=== PATIENT | male | born 1940 | race Caucasian/White ===

== ENCOUNTER → 2016-07-24 | Outpatient (CLI) | payer MEDICARE ==
--- NOTE | 2016-07-24 15:32 | NM ---
EXAMINATION TYPE: NM bone 3 phase DATE OF EXAM: 07/24/2016 3:28 PM COMPARISON: NONE HISTORY: Foot ulcer Triple phase bone scintigraphy was performed following the injection of25.6 mCi Tc 99m MDP. Immediat e images and 7.5 hours post injection images acquired. FINDINGS: There is increased perfusion to the right foot first digit. Increased perfusion along the lateral mar gin of the left foot tarsal region. Soft tissue uptake demonstrates increased soft tissue uptake adjacent to the first digit right foot a nd a lateral margin tarsal bones left foot. Delayed imaging demonstrates focal increased uptake involving the distal margin first digit and in th e region of the base of the fifth metatarsal left foot. IMPRESSION: Findings are compatible cellulitis and osteomyelitis involving the right first digit and in the regio n of the base of the left fifth metatarsal.
== END | disposition home or self-care (01) ==
LOC: RADNMMAIN 07:22
PROVIDERS: ATTEND Thoracic Surgery (Cardiothoracic Vascular Surgery)
DX: M79.604 Pain in right leg (principal); M79.605 Pain in left leg
CPT/HCPCS: 78315; A9503

== ENCOUNTER → 2016-08-06 | Day surgery (SDC) | payer MEDICARE ==
[2016-08-02 09:17] VITALS: BMI 25.7
[~2016-08-06] MED LIST: LIDOCAINE 2% INJ 20 MG/ML (20 ML MDV) ONE; cefTRIAXone 2,000 MG in SODIUM CHLORIDE 0.9% 100 ML IVPB STA
[2016-08-06 11:43] VITALS: BP 108/68; PULSE 69; RESP 18; TEMP 98
--- NOTE | 2016-08-06 15:31 | IR ---
EXAMINATION TYPE: IR cvc insert >=5 years DATE OF EXAM: 08/06/2016 2:23 PM COMPARISON: NONE CLINICAL HISTORY: Infection Needs long-term intravenous access for antibiotics. PROCEDURE: After informed consent, the skin overlying the upper extremity vein was localized with ultrasound and noted to be compressible and patent. An ultrasound image was obtained and submitted on the patient' s chart. The overlying skin was prepped and draped and Lidocaine was used for local anesthesia. A s kin bean was made with a scalpel. Access was gained to the vein under ultrasound guidance with a 21 gauge needle and a 0.018 inch wire was advanced. Access site was dilated with Peel-Away sheath and c atheter tailored to the appropriate length and advanced such that the distal tip is at the cavoatrial junction. Spot image was obtained verifying placement. Catheter was fixed to the skin with suture and a sterile dressing was placed following hemostasis. Catheter was aspirated and flushed with sali ne. Patient was discharged in stable condition without complication. Maximal barrier technique is ut ilized. Ultrasound image is documented on the chart. Ultrasound used with sterile technique. Fluoro time and fluoroscopic images submitted to document procedure: 0.6 minutes fluoroscopy time, in traoperative image documents the procedure IMPRESSION: STATUS POST ULTRASOUND AND FLUOROSCOPIC GUIDED PICC LINE PLACEMENT, READY FOR USE. THIS PROCEDURE WAS PERFORMED BY THE UNDERSIGNED.
== END | disposition home or self-care (01) ==
LOC: CATHCVL 11:16
PROVIDERS: ATTEND Radiology Diagnostic Radiology
DX: M86.8X7 Other osteomyelitis, ankle and foot (principal); L97.529 Non-pressure chronic ulcer of other part of left foot with unspecified severity; L97.519 Non-pressure chronic ulcer of other part of right foot with unspecified severity; M06.9 Rheumatoid arthritis, unspecified; I48.91 Unspecified atrial fibrillation; Z86.14 Personal history of Methicillin resistant Staphylococcus aureus infection; Z79.01 Long term (current) use of anticoagulants; Z79.82 Long term (current) use of aspirin; Z79.52 Long term (current) use of systemic steroids; Z79.899 Other long term (current) drug therapy; Z88.5 Allergy status to narcotic agent; Z87.891 Personal history of nicotine dependence
CPT/HCPCS: 36569 ×2; 76937; 77001; 85610; 11042; C1751; C1769; J0696

== ENCOUNTER 2016-08-28 06:44 | Day surgery (SDC) | payer MEDICARE ==
[2016-08-23 14:15] VITALS: BMI 23.5
--- NOTE | 2016-08-27 21:51 | HP ---
DATE OF ADMISSION: Patient is to be admitted SaturdayAugust 28, for surgical debridement of ulcerations on both feet. HISTORY OF CHIEF COMPLAINT: The patient bilateral foot ulcers. He has severe rheumatoid arthritis and is on numerous metabolite. The left foot is more problematic involving the metatarsal. Past medical history is positive for atrial fibrillation, osteoarthritis and severe rheumatoid arthritis. Social history is positive for previous cigarette smoking. Surgical history is positive for bilateral hips and knees, metatarsal heads and shoulder joint replacement, spinal fusion and colectomy. 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 Please refer to the notes for his medications. REVIEW OF SYSTEMS: CONSTITUTIONAL: Positive for generalized weakness. He is extremely debilitated. ENT is negative. Cardiac is positive for atrial fibrillation and some dyspnea on exertion and some leg edema. PULMONARY: Negative cough, shortness of breath or hemoptysis. GI: Negative. : Negative. MUSCULOSKELETAL: Positive for history of severe rheumatoid arthritis. Dermatologic is positive for his ulcerations. NEUROLOGIC: Is otherwise negative. PSYCHIATRIC: Negative. ENDOCRINE: Negative. Physical examination reveals a pleasant, alert 76-year-old gentleman with severe deformities of especially the hands from his rheumatoid arthritis. HEENT: Examination is negative. Lungs are clear to auscultation. Heart is in an irregularly irregular rhythm. ABDOMEN: Soft and benign. Bilateral left foot has an ulceration about 0.5 x 0.5 cm and the medial right foot has an ulcer as well. IMPRESSION: Bilateral foot ulcers with osteomyelitis. The patient is admitted for bone debridement under IV sedation. I have explained the operation/procedure to the patient, including the risks, benefits, side effects, alternative therapies (including not receiving the proposed treatment or service), the likelihood of the patient achieving his/her goals, and potential recuperation problems for the procedure/sedation/analgesia, as well as any blood products, if indicated. I also explained to the patient the risks, benefits, and side effects of the alternatives, as well as the risks related to not receiving the proposed procedure, care treatment or services.
[~2016-08-28 06:44] MED LIST changes: +DEXAMETHASONE SOD PHOSPHATE 10 MG/ML 1 ML VIAL IV ONE; +LACTATED RINGERS 1,000 ML IV SCH; +LIDOCAINE 1% 20 ML VIAL (10MG/ML) FOR IV START INTRADERMA PRN; -LIDOCAINE 2% INJ 20 MG/ML (20 ML MDV) ONE; +MIDAZOLAM 2 MG/2 ML VIAL IV PRN; +ONDANSETRON 4 MG/2 ML VIAL IVP ONE; +Pre Op ABX Message 1 EACH MISC MISCELLANE ONE; +SCOPOLAMINE 1.5MG/72HR PATCH TRANSDERM ONE; -cefTRIAXone 2,000 MG in SODIUM CHLORIDE 0.9% 100 ML IVPB STA
[2016-08-28] MEDS ORDERED: HYDROCORTISONE SUCCINATE 100 MG/2 ML VIAL IV STA (06:58)
[2016-08-28] MEDS ORDERED: LACTATED RINGERS 1,000 ML IV ONE (07:17)
[2016-08-28 07:23] LABS: INR 1.9 (<1.1); Prothrombin Time 18.4 sec (9.0-12.0)
[2016-08-28 07:28] LABS: Glucose,Whole Blood 73 mg/dL (75-99)
[2016-08-28] MEDS ORDERED: fentaNYL (PF) 50 MCG/ML 2 ML AMP ONE (07:41)
[2016-08-28] MEDS ORDERED: PROPOFOL 10 MG/ML 20 ML VIAL IV ONE (07:41)
[2016-08-28] MEDS ORDERED: MIDAZOLAM 2 MG/2 ML VIAL ONE (07:41)
[2016-08-28 08:23] VITALS: TEMP 97.9
[2016-08-28 08:32] VITALS: RESP 16
[2016-08-28] MEDS: HYDROmorphone 1 MG/ML 1 ML SYRINGE IVP PRN ×4 (08:40→09:00)
[2016-08-28 10:16] VITALS: BP 93/57; PULSE 62
--- NOTE | 2016-08-28 17:36 | P.WCSRGD ---
[facility] Surgical [facility] Date of service: 08/28/2016 Surgeon: Yaritza Pre-and postop diagnosis: Ulceration lateral left foot with osteomyelitis Type of debridement: Excisional surgical Chief complaint: ulcer of lateral left foot Anesthesia: General Signs of infection: Mild redness Extent of necrotic, devitalized or non-viable tissue: Exposed bone with soft mushy components Other material in the wound that is expected to inhibit healing or promote adjacent tissue breakdown: Same Degree of epithelialization: % Method and instrument: Surgical debridement with rongeur Character of the wound after debridement: Clean bloody subcutaneous bed with an' s of bone proximal and distal Description of necrotic material present: Nonviable bone Description of tissue removed: Same Pre-debridement measurement: 0.6 x 0.6 cm and 0.5 cm in depth Postoperative debridement measurement: 0.8 x 0.8 cm and 1.3 cm in depth Control of bleeding:Bleeding was easily controlled with saline moistened gauze and light pressure Post debridement dressing: Opticel silver Patient tolerated procedure well
== END 2016-08-28 10:35 | disposition home or self-care (01) ==
LOC: OR 06:44
PROVIDERS: ATTEND Thoracic Surgery (Cardiothoracic Vascular Surgery)
DX: L97.524 Non-pressure chronic ulcer of other part of left foot with necrosis of bone (principal); M86.9 Osteomyelitis, unspecified; L97.519 Non-pressure chronic ulcer of other part of right foot with unspecified severity; M06.9 Rheumatoid arthritis, unspecified; I48.91 Unspecified atrial fibrillation; M19.90 Unspecified osteoarthritis, unspecified site; Z86.718 Personal history of other venous thrombosis and embolism; Z86.711 Personal history of pulmonary embolism; Z86.14 Personal history of Methicillin resistant Staphylococcus aureus infection; Z79.2 Long term (current) use of antibiotics; Z79.01 Long term (current) use of anticoagulants; Z79.82 Long term (current) use of aspirin; Z79.52 Long term (current) use of systemic steroids; Z79.899 Other long term (current) drug therapy; Z88.5 Allergy status to narcotic agent; Z87.891 Personal history of nicotine dependence
CPT/HCPCS: 85610; 11044; J2250; J1720; J2405; J3010; J1170; J2704

== ENCOUNTER 2016-12-10 08:06 | Day surgery (SDC) | payer MEDICARE ==
--- NOTE | 2016-12-06 10:26 | HP ---
DATE OF ADMISSION: 12/10/2016 Patient is to be admitted on December 10, for debridement of the left foot with bone. HISTORY: This patient has a history of an ulceration on the lateral left foot with exposed infected metatarsal bone. He is undergoing hyperbaric therapy and still has residual bone that requires removal to facilitate healing. Medical history is positive for atrial fibrillation, osteoarthritis, severe rheumatoid arthritis. Social history is positive for previous cigarette smoking. Surgical history is positive for bilateral hips, bilateral knees, metatarsal heads, shoulder joint replacement, spinal fusion and colectomy. Please see the record for his current medications and allergies. REVIEW OF SYSTEMS: CONSTITUTIONAL: Positive for generalized weakness. He is very debilitated and uses wheelchair mainly for mobility. Also positive for some dyspnea on exertion and leg edema. Pulmonary history is negative for cough or shortness of breath at rest, but positive for dyspnea on fairly mild exertion. GI: Negative. : Negative. Musculoskeletal is positive for history of severe rheumatoid arthritis. Dermatologic is positive for his ulceration. Cardiac is negative for chest pain, myocardial infarction or paroxysmal nocturnal dyspnea. Neurologic history is negative. Psychiatric is negative. Endocrine is negative. Physical examination reveals a pleasant, alert, oriented, very frail-looking 76-year-old gentleman in no current distress. He has no cervical mass or adenopathy. His lungs are well aerated. His heart is in an irregular rhythm. His abdomen is soft and benign. He has severe distortion of his hands with swelling of his joints from rheumatoid arthritis. He has about a 5 x 5 mm ulceration in the lateral aspect of the left foot with some bone palpable at about 2 cm in depth. IMPRESSION: Osteomyelitis, left foot. The patient is admitted for surgical debridement with sedation with removal of more bone on the left foot. I have explained the operation/procedure to the patient, including the risks, benefits, side effects, alternative therapies (including not receiving the proposed treatment or service), the likelihood of the patient achieving his/her goals, and potential recuperation problems for the procedure/sedation/analgesia, as well as any blood products, if indicated. I also explained to the patient the risks, benefits, and side effects of the alternatives, as well as the risks related to not receiving the proposed procedure, care treatment or services. This is to occur on December 10.
[2016-12-06 10:45] VITALS: BMI 25.3
[~2016-12-10 08:06] MED LIST changes: -DEXAMETHASONE SOD PHOSPHATE 10 MG/ML 1 ML VIAL IV ONE; -LACTATED RINGERS 1,000 ML IV SCH; -MIDAZOLAM 2 MG/2 ML VIAL IV PRN; -SCOPOLAMINE 1.5MG/72HR PATCH TRANSDERM ONE
[2016-12-10] MEDS: LACTATED RINGERS 1,000 ML IV SCH ×2 (08:55→09:04)
[2016-12-10] MEDS ORDERED: LIDOCAINE 1% 20 ML VIAL (10MG/ML) FOR IV START INTRADERMA ONE (08:55)
[2016-12-10] MEDS ORDERED: HYDROCORTISONE SUCCINATE 100 MG/2 ML VIAL IV STA (08:55)
[2016-12-10 09:03] LABS: Glucose,Whole Blood 68 mg/dL (75-99)
[2016-12-10] MEDS ORDERED: PROPOFOL 10 MG/ML 20 ML VIAL IV ONE (09:07)
[2016-12-10] MEDS ORDERED: LIDOCAINE 1% INJ 10MG/ML (20 ML MDV) ONE (09:07)
[2016-12-10] MEDS ORDERED: fentaNYL (PF) 50 MCG/ML 2 ML AMP ONE (09:07)
[2016-12-10 09:11] LABS: INR 1.7 (<1.1)
[2016-12-10 09:39] VITALS: TEMP 97.8
--- NOTE | 2016-12-10 09:41 | P.PCN ---
Date of Procedure: 12/10/16 Preoperative Diagnosis: Ulcer with Osteomyelitis left foot, Postoperative Diagnosis: Same Procedure(s) Performed: Surgical debridement left foot including bone Implants: Anesthesia: MAC Surgeon: Hadley Vigil Estimated Blood Loss (ml): 30 Pathology: other (Bone from left foot for culture) Condition: stable Disposition: PACU Indications for Procedure: Patient has nonviable bone in the left foot and was unable tolerate thorough debridement without anesthetic Operative Findings: We did find a fairly large amount of soft mushy bone in the area. The ulcer started at 0.5 x 0.5 by about 2.5 cm. We increased the external opening to about 0.8 x 0.8. The depth was still about 2.5 cm. The inner cavity however was significantly enlarged by removing a lot of necrotic bone. Description of Procedure: With the patient in supine position, under benefit of IV sedation, we prepped and draped in standard fashion. We utilized a rongeur and curettes to remove as much as possible of nonviable bone in the entire area. We took it to what appeared to be more firm healthy bone. Hemostasis Was with direct pressure. The wound was packed. Sterile dressings were applied. The patient was taken to recovery area in stable condition having tolerated the procedure well.
[2016-12-10] MEDS: HYDROmorphone 1 MG/ML 1 ML SYRINGE IVP ONE ×2 (09:50→09:56)
[2016-12-10] MEDS: fentaNYL (PF) 50 MCG/ML 2 ML AMP IV PRN ×2 (10:10→10:13)
[2016-12-10 10:32] VITALS: RESP 16
[2016-12-10 11:00] VITALS: BP 115/52; PULSE 64
== END 2016-12-10 11:21 | disposition home or self-care (01) ==
LOC: OR 08:06
PROVIDERS: ATTEND Thoracic Surgery (Cardiothoracic Vascular Surgery)
DX: M86.8X7 Other osteomyelitis, ankle and foot (principal)
CPT/HCPCS: 85610; 87070; 87205; 87077; 87186; 11044; J1720; J2405; J2001; J3010; J1170; J2704

== ENCOUNTER 2017-01-14 08:01 | Day surgery (SDC) | payer MEDICARE ==
[~2017-01-14 08:01] MED LIST changes: +DEXAMETHASONE SOD PHOSPHATE 10 MG/ML 1 ML VIAL IV ONE; +LACTATED RINGERS 1,000 ML IV SCH; +MIDAZOLAM 2 MG/2 ML VIAL IV PRN; -Pre Op ABX Message 1 EACH MISC MISCELLANE ONE; +ceFAZolin 2 GM in SODIUM CHLORIDE 0.9% 100 ML IVPB ONE
[2017-01-14 08:45] LABS: Glucose,Whole Blood 73 mg/dL (75-99)
[2017-01-14 09:00] LABS: INR 1.1 (<1.1); Prothrombin Time 11.4 sec (9.0-12.0)
[2017-01-14] MEDS ORDERED: PROPOFOL 10 MG/ML 20 ML VIAL IV ONE (09:04)
[2017-01-14] MEDS ORDERED: fentaNYL (PF) 50 MCG/ML 2 ML AMP ONE (09:04)
[2017-01-14] MEDS ORDERED: MIDAZOLAM 2 MG/2 ML VIAL ONE (09:04)
[2017-01-14] MEDS ORDERED: ePHEDrine 50 MG/ML 1 ML AMP ONE (09:04)
--- NOTE | 2017-01-14 09:10 | P.GSHP ---
History of Present Illness H&P Date: 01/14/17 Chief Complaint: Ulceration left foot Patient has a chronic ulcer on the lateral left foot secondary to chronic osteomyelitis of the left foot. It has been refractory to outpatient therapy including hyperbarics. - Constitutional Constitutional: Reports chronic pain, Reports weakness, Denies chills, Denies fever - EENT Eyes: denies blurred vision, denies pain Ears, nose, mouth and throat: Denies headache, Denies sore throat - Cardiovascular Cardiovascular: Reports decreased exercise tolerance, Denies chest pain, Denies orthopnea, Denies paroxysmal nocturnal dyspnea, Denies shortness of breath - Respiratory Respiratory: Denies congestion, Denies cough, Denies hemoptysis - Gastrointestinal Gastrointestinal: Denies abdominal pain, Denies coffee ground emesis, Denies diarrhea, Denies hematemesis, Denies hematochezia, Denies jaundice, Denies melena, Denies nausea, Denies vomiting - Genitourinary (Female) Genitourinary: Denies dysuria, Denies hematuria - Genitourinary (Male) Genitourinary: Denies dysuria, Denies hematuria - Musculoskeletal Comment: Severe long-standing rheumatoid arthritis Musculoskeletal: Denies myalgias - Integumentary Comment: Chronic ulcer lateral left foot Integumentary: Denies pruritus, Denies rash - Neurological Neurological: Denies convulsions, Denies numbness, Denies paralysis, Denies syncope, Denies weakness - Psychiatric Psychiatric: Denies anxiety, Denies depression - Endocrine Endocrine: Denies fatigue, Denies weight change - Hematologic/Lymphatic Comment: The patient is on anticoagulants - Allergic/Immunologic Allergic/Immunologic: Denies anaphylaxis, Denies angioedema, Denies urticaria Past Medical History Past Medical History: Atrial Fibrillation, Deep Vein Thrombosis (DVT), Osteoarthritis (OA), Rheumatoid Arthritis (RA), Skin Disorder Additional Past Medical History / Comment(s): asbestosis, wound outside left foot, hx colitis, wheelchair-non ambulatory from severe RA, "low BP", hx DVT rt leg History of Any Multi-Drug Resistant Organisms: MRSA Date of last positivie culture/infection: lt knee MDRO Source:: lt. leg Past Surgical History: Appendectomy, Back Surgery, Heart Catheterization, Joint Replacement, Tonsillectomy Additional Past Surgical History / Comment(s): hips & knees,metatarsal heads removed,fingers,shoulder joint replaced,spinal fusion C1&2,colectomy 08/28/16 debridement left lateral foot Past Anesthesia/Blood Transfusion Reactions: Postoperative Nausea & Vomiting ( PONV) Additional Past Alcohol Use History / Comment(s): Quit smoking in 1972, started smoking age 19 - Past Family History Mother Family Medical History: Cancer Additional Family Medical History / Comment(s): Breast Medications and Allergies Home Medications Medication Instructions Recorded Confirmed Type Acetaminophen-Codeine 300-30mg 1 tab PO Q8H PRN 07/18/16 01/14/17 History [Tylenol w/codeine #3] Aspirin 81 mg PO DAILY 07/18/16 01/14/17 History Furosemide [Lasix] 20 mg PO QAM 07/18/16 01/14/17 History Gabapentin [Neurontin] 300 mg PO TID 07/18/16 01/14/17 History Hydroxychloroquine Sulfate 200 mg PO DAILY 07/18/16 01/14/17 History [Plaquenil] Ipratropium/Albuterol Sulfate 1 puff INHALATION QID PRN 07/18/16 01/14/17 History [Combivent Respimat Inhaler] L.acidoph,Paracasei, B.lactis 1 each PO DAILY 07/18/16 01/14/17 History [Probiotic] Metoprolol Succinate (ER) [Toprol 50 mg PO BID 07/18/16 01/14/17 History XL] Tamsulosin [Flomax] 0.4 mg PO DAILY 07/18/16 01/14/17 History Warfarin [Coumadin] 1 mg PO SUTUTHSA 07/18/16 01/14/17 History fentaNYL 50MCG/HR PATCH [Duragesic 50 mcg TRANSDERM Q72H 07/18/16 01/14/17 History 50MCG/HR] predniSONE 10 mg PO QAM 07/18/16 01/14/17 History Warfarin [Coumadin] 1.5 mg PO MOWEFR 08/02/16 01/14/17 History ALPRAZolam [Xanax] 0.25 mg PO TID PRN 01/10/17 01/14/17 History Digoxin [Lanoxin] 125 mcg PO QAM 01/10/17 01/14/17 History Allergies Allergy/AdvReac Type Severity Reaction Status Date / Time meperidine Allergy Nausea & Verified 01/14/17 08:46 Vomiting morphine AdvReac Confusion Verified 01/14/17 08:46 Surgical - Exam Osteopathic Statement: *. No significant issues noted on an osteopathic structural exam other than those noted in the History and Physical/Consult. Vital Signs Temp Pulse Resp BP Pulse Ox 97.7 F 55 L 16 107/52 95 01/14/17 08:40 01/14/17 08:40 01/14/17 08:40 01/14/17 08:40 01/14/17 08:40 - General well developed, well nourished, no distress - Eyes normal ocular movement, no icteric - ENT no hearing loss, no congestion - Neck no masses, no bruits, trachea midline - Respiratory normal respiratory effort, clear to auscultation - Cardiovascular Rhythm: regular - Abdomen Abdomen: soft, non tender, no guarding, no rigid, no rebound - Integumentary no rash, no abnormal pigmentation - Neurologic no disoriented, no combative - Musculoskeletal Patient is essentially bedbound and wheelchair-bound secondary to severe deforming rheumatoid arthritis. - Psychiatric oriented to time, oriented to person, oriented to place, speech is normal, memory intact Results - Labs Abnormal Lab Results - Last 24 Hours (Table) 01/14/17 Range/Units 08:33 POC Glucose (mg/dL) 73 L (75-99) mg/dL Assessment and Plan (1) Osteomyelitis of ankle or foot Status: Acute Plan: Patient has failed conservative measures with limited debridement. Patient is admitted today for more radical debridement of the bones of the foot with attempt at primary closure. Have discussed the potential palpitations of the procedure with the patient including the potential for limb loss. He appears to understand these things and agrees to proceed.
[2017-01-14] MEDS ORDERED: LACTATED RINGERS 500 ML IV ONE (10:00)
[2017-01-14] MEDS ORDERED: SODIUM CHLORIDE 0.9% 500 ML IV ONE (10:02)
[2017-01-14 10:18] VITALS: TEMP 97
[2017-01-14] MEDS: HYDROmorphone 1 MG/ML 1 ML SYRINGE IVP PRN ×2 (10:25→10:33)
[2017-01-14 10:35] VITALS: RESP 16
--- NOTE | 2017-01-14 10:42 | P.PCN ---
Date of Procedure: 01/14/17 Preoperative Diagnosis: Chronic osteomyelitis with ulceration lateral left foot Postoperative Diagnosis: Same Procedure(s) Performed: debridement of the lateral right foot including bones of the metatarsal and distal tarsal bones with primary closure Implants: Anesthesia: MAC Surgeon: Hadley Vigil Estimated Blood Loss (ml): 30 Pathology: other (Deep bone tissue cultures sent) Condition: stable Disposition: PACU Indications for Procedure: The patient had a chronic open ulcer secondary to osteomyelitis which was chronic Operative Findings: On exploration there was somewhat abnormal bone throughout the area of our debridement. This was fibrous and difficult to tell whether it was related to infection or his severe chronic rheumatoid arthritis Description of Procedure: With the patient in supine position, under benefit of IV sedation, we prepped and draped in standard fashion. We made an elliptical incision which included the chronic ulcer on the lateral left foot it extended the incision both distal and proximally. Through this incision then we both excise the entire fistulous tract and then using a rongeur removed all that we could of the fifth metatarsal and some of the proximal tarsal bones. We removed enough that we were then able to primarily close the wound. We did remove all that we could of anything that felt abnormal. We then irrigated with saline. We then closed with vertical mattress 3-0 nylon. Sterile dressings were applied. The patient tolerated the procedure well and was taken to recovery area in stable condition.
[2017-01-14] MEDS ORDERED: Acetaminophen-Codeine 300-30mg TAB PO ONE (12:04)
[2017-01-14 12:39] VITALS: BP 104/51; PULSE 68
== END 2017-01-14 12:58 | disposition home or self-care (01) ==
LOC: OR 08:01
PROVIDERS: ATTEND Thoracic Surgery (Cardiothoracic Vascular Surgery)
DX: L97.529 Non-pressure chronic ulcer of other part of left foot with unspecified severity (principal); M86.672 Other chronic osteomyelitis, left ankle and foot; I48.91 Unspecified atrial fibrillation; Z86.718 Personal history of other venous thrombosis and embolism; Z79.01 Long term (current) use of anticoagulants; Z77.090 Contact with and (suspected) exposure to asbestos; M19.90 Unspecified osteoarthritis, unspecified site; I95.89 Other hypotension; M06.9 Rheumatoid arthritis, unspecified; Z87.891 Personal history of nicotine dependence; Z79.82 Long term (current) use of aspirin; Z79.891 Long term (current) use of opiate analgesic; Z79.52 Long term (current) use of systemic steroids; Z79.899 Other long term (current) drug therapy; Z88.5 Allergy status to narcotic agent
CPT/HCPCS: 85610; 87070; 87205; 87075; 28122; J2250; J1100; J0690; J2405; J3010; J1170; J2704

== ENCOUNTER 2017-03-29 09:25 | Day surgery (SDC) | payer MEDICARE ==
[2017-03-27 14:04] VITALS: BMI 23.3
[~2017-03-29 09:25] MED LIST changes: -DEXAMETHASONE SOD PHOSPHATE 10 MG/ML 1 ML VIAL IV ONE; -LIDOCAINE 1% 20 ML VIAL (10MG/ML) FOR IV START INTRADERMA PRN; -MIDAZOLAM 2 MG/2 ML VIAL IV PRN; -ONDANSETRON 4 MG/2 ML VIAL IVP ONE; -ceFAZolin 2 GM in SODIUM CHLORIDE 0.9% 100 ML IVPB ONE
[2017-03-29 10:31] VITALS: RESP 16; TEMP 96.7
[2017-03-29] MEDS ORDERED: LIDOCAINE 1% 20 ML VIAL (10MG/ML) FOR IV START INTRADERMA ONE (10:41)
[2017-03-29] MEDS ORDERED: PROPOFOL 10 MG/ML 20 ML VIAL IV ONE (10:54)
--- NOTE | 2017-03-29 11:08 | P.PCN ---
Date of Procedure: 03/29/17 Preoperative Diagnosis: Postoperative Diagnosis: Procedure(s) Performed: BRIEF HISTORY: Patient is a 77-year-old, pleasant, white male, scheduled for an upper endoscopy as a part of evaluation of intermittent dysphagia to solids for the last 1 month duration. He has intermittent symptoms that happened months for 5 times a week. No choking episodes. He denies any odynophagia. Denies any heartburn. He lost 50-60 pounds in the last 1 year duration. PROCEDURE PERFORMED: Esophagogastroduodenoscopy with biopsy. PREOPERATIVE DIAGNOSIS: Intermittent dysphagia to solids for the last 1 month duration. IV sedation per anesthesia. PROCEDURE: After informed consent was obtained, the patient was brought into the endoscopy unit. IV sedation was administered by Anesthesia under continuous monitoring. Initially the Olympus GIF-140 video endoscope was inserted into the mouth. Esophagus intubated without any difficulty. It was gradually advanced into the stomach and duodenum and carefully examined. The bulb and the second part of the duodenum appeared normal. The scope at this time was withdrawn to the stomach, adequately insufflated with air, and upon careful examination, mucosa of the antrum, had mild gastritis and biopsies were done from this area. The body, cardia and the fundus appeared normal. The scope was then withdrawn into the esophagus. Small hiatal hernia noted. The GE junction was located at 39 cm from the incisors. The esophagus appeared normal. No evidence of esophageal stricture in the proximal cervical esophagus appeared normal. There were no erosions or ulcerations seen and the patient tolerated the procedure well. IMPRESSION: 1. Normal-appearing esophagus with no evidence of esophagitis or esophageal stricture. 2. Mild gastritis and small hiatal hernia. RECOMMENDATIONS: The findings of this examination were discussed with the patient as well as his family. He was advised to follow with the biopsy results. He will continue with Prilosec 20 minute grams daily and follow antireflux measures. Implants: Indications for Procedure: Operative Findings: Description of Procedure:
[2017-03-29 11:55] VITALS: BP 111/66; PULSE 78
== END 2017-03-29 12:07 | disposition home or self-care (01) ==
LOC: ORWHC2ENDO 09:25
PROVIDERS: ATTEND Internal Medicine Gastroenterology
DX: K44.9 Diaphragmatic hernia without obstruction or gangrene (principal); K29.50 Unspecified chronic gastritis without bleeding; R13.10 Dysphagia, unspecified; I49.9 Cardiac arrhythmia, unspecified; I48.91 Unspecified atrial fibrillation; Z79.01 Long term (current) use of anticoagulants; Z86.718 Personal history of other venous thrombosis and embolism; J44.9 Chronic obstructive pulmonary disease, unspecified; Z87.891 Personal history of nicotine dependence; N40.0 Benign prostatic hyperplasia without lower urinary tract symptoms; M06.9 Rheumatoid arthritis, unspecified; Z79.82 Long term (current) use of aspirin; Z79.52 Long term (current) use of systemic steroids; Z79.899 Other long term (current) drug therapy; Z88.5 Allergy status to narcotic agent
CPT/HCPCS: 88305; 88342; 43239; J2704; 88312

== ENCOUNTER → 2017-04-23 | Outpatient (CLI) | payer MEDICARE ==
--- NOTE | 2017-04-23 15:43 | XR ---
EXAMINATION TYPE: XR chest 2V DATE OF EXAM: 04/23/2017 COMPARISON: Prior chest x-ray 08/16/2011 HISTORY: Fever, abnormal chest x-ray TECHNIQUE: Frontal and lateral views of the chest are obtained. FINDINGS: Calcified pleura again noted on the left, there is some volume loss. Postop change noted t o the right shoulder. No evident pneumothorax or pleural effusion. Heart size is likely stable accoun ting for differences in technique and rotation. Multiple right-sided rib fractures are again seen. Ma rked arthropathy again noted within the left shoulder. IMPRESSION: Rotated exam. Findings are similar to previous exam. Follow-up as indicated.
== END | disposition home or self-care (01) ==
LOC: RADXRMAIN 14:34
PROVIDERS: ATTEND Internal Medicine Geriatric Medicine
DX: R50.9 Fever, unspecified (principal)
CPT/HCPCS: 71020

== ENCOUNTER 2017-05-08 10:48 | Day surgery (SDC) | payer MEDICARE ==
[2017-05-02 16:25] VITALS: BMI 23.5
--- NOTE | 2017-05-08 10:39 | P.GSHP ---
History of Present Illness H&P Date: 05/08/17 Chief Complaint: Osteomyelitis left great toe The patient has severe rheumatoid arthritis. He has severe inability to heal. He traumatized the medial aspect of the area of the first MP joint on his left foot. This is developed into a severe ulceration with essentially the entire joint surfaces exposed and the distal first metatarsal - Constitutional Constitutional: Reports chronic pain, Reports fatigue, Reports weakness, Denies chills, Denies fever - EENT Eyes: denies blurred vision, denies pain Ears, nose, mouth and throat: Denies headache, Denies sore throat - Cardiovascular Cardiovascular: Denies chest pain, Denies dyspnea on exertion, Denies orthopnea , Denies paroxysmal nocturnal dyspnea, Denies shortness of breath - Respiratory Respiratory: Denies cough, Denies cough with sputum, Denies hemoptysis - Gastrointestinal Gastrointestinal: Denies abdominal pain, Denies coffee ground emesis, Denies diarrhea, Denies hematemesis, Denies jaundice, Denies melena, Denies nausea, Denies vomiting - Genitourinary (Female) Genitourinary: Denies dysuria, Denies hematuria - Genitourinary (Male) Genitourinary: Denies dysuria, Denies hematuria - Musculoskeletal Comment: Severe joint deformities and chronic pain from severe rheumatoid arthritis. Chronic osteomyelitis lateral aspect of the left foot involving fifth metatarsal. Patient is essentially wheelchair-bound secondary to the debilitating effects of rheumatoid arthritis. Musculoskeletal: Denies myalgias - Integumentary Comment: Ulcers left foot as described Integumentary: Denies pruritus, Denies rash - Neurological Neurological: Denies numbness, Denies weakness - Psychiatric Psychiatric: Denies anxiety, Denies depression - Endocrine Endocrine: Denies fatigue, Denies weight change - Hematologic/Lymphatic Hematologic/Lymphatic: Denies easy bleeding, Denies easy bruising, Denies lymphedema - Allergic/Immunologic Allergic/Immunologic: Denies anaphylaxis, Denies angioedema, Denies urticaria Past Medical History Past Medical History: Atrial Fibrillation, Deep Vein Thrombosis (DVT), Osteoarthritis (OA), Rheumatoid Arthritis (RA), Skin Disorder Additional Past Medical History / Comment(s): asbestosis, wound outside left foot, hx colitis, wheelchair-non ambulatory from severe RA, "low BP", hx DVT rt leg History of Any Multi-Drug Resistant Organisms: MRSA Date of last positivie culture/infection: lt knee MDRO Source:: lt. leg Past Surgical History: Appendectomy, Back Surgery, Heart Catheterization, Joint Replacement, Tonsillectomy Additional Past Surgical History / Comment(s): hips & knees,metatarsal heads removed,fingers,shoulder joint replaced,spinal fusion C1&2,colectomy 08/28/16 debridement left lateral foot Past Anesthesia/Blood Transfusion Reactions: Postoperative Nausea & Vomiting ( PONV) Past Psychological History: No Psychological Hx Reported Smoking Status: Former smoker Past Alcohol Use History: None Reported Additional Past Alcohol Use History / Comment(s): Quit smoking in 1972, started smoking age 19 Past Drug Use History: None Reported - Past Family History Mother Family Medical History: Cancer Additional Family Medical History / Comment(s): Breast Medications and Allergies Home Medications Medication Instructions Recorded Confirmed Type Acetaminophen-Codeine 300-30mg 1 tab PO Q6H PRN 07/18/16 05/02/17 History [Tylenol w/codeine #3] Aspirin 81 mg PO DAILY 07/18/16 05/02/17 History Furosemide [Lasix] 20 mg PO QAM 07/18/16 05/02/17 History Gabapentin [Neurontin] 300 mg PO TID 07/18/16 05/02/17 History Hydroxychloroquine Sulfate 200 mg PO DAILY 07/18/16 05/02/17 History [Plaquenil] Ipratropium/Albuterol Sulfate 1 puff INHALATION QID PRN 07/18/16 05/02/17 History [Combivent Respimat Inhaler] L.acidoph,Paracasei, B.lactis 1 each PO DAILY 07/18/16 05/02/17 History [Probiotic] Tamsulosin [Flomax] 0.4 mg PO DAILY 07/18/16 05/02/17 History fentaNYL 50MCG/HR PATCH [Duragesic 50 mcg TRANSDERM Q72H 07/18/16 05/02/17 History 50MCG/HR] predniSONE 10 mg PO QAM 07/18/16 05/02/17 History Warfarin [Coumadin] 1 mg PO DAILY 08/02/16 05/02/17 History Digoxin [Lanoxin] 125 mcg PO QAM 01/10/17 05/02/17 History Omeprazole 20 mg PO DAILY 02/20/17 05/02/17 History Ciprofloxacin HCl [Cipro] 500 mg PO Q12HR #28 tablet 04/23/17 05/02/17 Rx Allergies Allergy/AdvReac Type Severity Reaction Status Date / Time meperidine Allergy Nausea & Verified 05/02/17 11:41 Vomiting morphine AdvReac Confusion Verified 05/02/17 11:41 Surgical - Exam Osteopathic Statement: *. No significant issues noted on an osteopathic structural exam other than those noted in the History and Physical/Consult. - General Patient has generalized deformities from his rheumatoid arthritis, especially hands and feet well developed, well nourished, no distress, chronically ill - Eyes normal ocular movement, no icteric - ENT no hearing loss, no congestion - Neck no masses, no bruits, trachea midline - Respiratory normal expansion, normal respiratory effort, clear to auscultation - Cardiovascular Rhythm: regular - Abdomen Abdomen: soft, non tender, no guarding, no rigid, no rebound - Integumentary Deep but narrow ulcer lateral left foot and almost detached left great toe secondary to trauma to the first metatarsophalangeal joint no rash, no abnormal pigmentation - Neurologic no disoriented, no combative - Musculoskeletal Patient is essentially wheelchair-bound - Psychiatric oriented to time, oriented to person, oriented to place, speech is normal, memory intact Assessment and Plan (1) Subacute osteomyelitis of left foot Status: Acute Code(s): M86.272 - SUBACUTE OSTEOMYELITIS, LEFT ANKLE AND FOOT SNOMED Code(s): 69544878 Plan: I discussed with the patient the options. There is no way to heal this and I recommended we try amputation and primary closure. He appears to understand that he risks left below or above-knee amputation..
[~2017-05-08 10:48] MED LIST changes: +DEXAMETHASONE SOD PHOSPHATE 10 MG/ML 1 ML VIAL IV ONE; +HYDROmorphone 0.5 MG/0.5 ML SYRINGE IVP PRN; +LIDOCAINE 1% 20 ML VIAL (10MG/ML) FOR IV START INTRADERMA PRN; +MIDAZOLAM 2 MG/2 ML VIAL IV PRN; +ONDANSETRON 4 MG/2 ML VIAL IVP ONE; +SCOPOLAMINE 1.5MG/72HR PATCH TRANSDERM ONE; +ceFAZolin 2 GM in SODIUM CHLORIDE 0.9% 100 ML IVPB ONE
[2017-05-08 11:55] LABS: Glucose,Whole Blood 74 mg/dL (75-99)
[2017-05-08 12:26] LABS: INR 1.2 (<1.2); Prothrombin Time 11.5 sec (9.0-12.0)
[2017-05-08] MEDS ORDERED: PHENYLEPHRINE-0.9% NACL SYG 1 MG/10 ML SYRINGE ONE (13:19)
[2017-05-08] MEDS ORDERED: PROPOFOL 10 MG/ML 20 ML VIAL IV ONE (13:19)
[2017-05-08] MEDS ORDERED: fentaNYL (PF) 50 MCG/ML 2 ML AMP ONE (13:19)
[2017-05-08] MEDS ORDERED: MIDAZOLAM 2 MG/2 ML VIAL ONE (13:19)
[2017-05-08 14:26] VITALS: TEMP 97.7
[2017-05-08] MEDS ORDERED: HYDROmorphone 1 MG/ML 1 ML SYRINGE IVP ONE (14:40)
[2017-05-08] MEDS ORDERED: Acetaminophen-Codeine 300-30mg TAB PO ONE (15:08)
[2017-05-08 15:28] VITALS: BP 90/50; PULSE 90; RESP 18
--- NOTE | 2017-05-08 16:41 | P.PCN ---
Date of Procedure: 05/08/17 Preoperative Diagnosis: Osteomyelitis left first metatarsophalangeal joint Postoperative Diagnosis: Same Procedure(s) Performed: Left great toe amputation through the metatarsal Anesthesia: JAMA Dry Box Operator #1: Hadley Vigil Estimated Blood Loss (ml): 40 Pathology: other (Bone specimen for culture) Condition: stable Disposition: PACU Indications for Procedure: The patient injured the left great toe and has a wide open joint with nonhealing Operative Findings: The proximal portion of the metatarsal where divided appeared healthy. The tissues on closure appeared healthy as well. Description of Procedure: With the patient spine position, under benefit of general anesthesia, we prepped and draped in standard fashion. We totally excised the area of open ulceration. We initially left a generous portion of the medial great toe flap for consideration of flap closure. We removed the great toe and with a Tima removed all of the distal metatarsal to about a centimeter above the line of the soft tissue remaining. We sharply removed the sesamoid bones as well. We established hemostasis with electrocautery. We then assessed for closure. It appeared that the most comfortable closure would be simple longitudinal closure. We fashioned the wound edges accordingly removing the rest of the great toe flap. We irrigated with saline and closed with nylon. Sterile dressings were applied. The patient tolerated the procedure well and was taken recovery area in stable condition. The patient is well aware that due to his severe healing problems that this may not heal regardless of the quality of tissues as they appear the time.
== END 2017-05-08 16:31 | disposition home or self-care (01) ==
LOC: OR 10:48
PROVIDERS: ATTEND Thoracic Surgery (Cardiothoracic Vascular Surgery)
DX: I96 Gangrene, not elsewhere classified (principal); L97.529 Non-pressure chronic ulcer of other part of left foot with unspecified severity; M06.9 Rheumatoid arthritis, unspecified; I48.91 Unspecified atrial fibrillation; Z86.718 Personal history of other venous thrombosis and embolism; M19.90 Unspecified osteoarthritis, unspecified site; Z99.3 Dependence on wheelchair; Z86.14 Personal history of Methicillin resistant Staphylococcus aureus infection; Z87.891 Personal history of nicotine dependence; Z79.01 Long term (current) use of anticoagulants; Z79.82 Long term (current) use of aspirin; Z79.899 Other long term (current) drug therapy; Z88.8 Allergy status to other drugs, medicaments and biological substances; Z88.5 Allergy status to narcotic agent
CPT/HCPCS: 88305; 85610; 88311; 87070; 87205; 87075; 28820; J2250; J1100; J2405; J3010; J1170 ×2; J2370; J2704

== ENCOUNTER 2017-10-11 12:52 | Inpatient (IN) | payer MEDICARE ==
[2017-10-11] MEDS ORDERED: SODIUM CHLORIDE 0.9% 1,000 ML IV STA ×2 (13:19)
[2017-10-11] MEDS ORDERED: ONDANSETRON 4 MG/2 ML VIAL IVP STA (13:19)
[2017-10-11 14:03] LABS: Basophils % (A) 0 %; Eosinophils # (A) 0.2 k/uL (0-0.7); Eosinophils % (A) 1 %; HCT 33.6 % (39.0-53.0); HGB 10.5 gm/dL (13.0-17.5); Lymphocytes # (A) 0.7 k/uL (1.0-4.8); Lymphocytes % (A) 4 %; MCH 28.4 pg (25.0-35.0); MCHC 31.2 g/dL (31.0-37.0); Mean Platelet Volume 7.5; Monocytes # (A) 0.8 k/uL (0-1.0); Monocytes % (A) 4 %; Neutrophils % (A) 90 %; Platelet Count 271 k/uL (150-450); RDW 15.8 % (11.5-15.5); WBC 18.9 k/uL (3.8-10.6)
[2017-10-11 14:08] LABS: ALT 19 U/L (21-72); AST 19 U/L (17-59); Albumin 3.1 g/dL (3.5-5.0); Alkaline Phosphatase 82 U/L (38-126); Anion Gap 13 mmol/L; Blood Urea Nitrogen 34 mg/dL (9-20); Calcium 9.4 mg/dL (8.4-10.2); Carbon Dioxide 30 mmol/L (22-30); Chloride 100 mmol/L (98-107); Glucose 94 mg/dL (74-99); Potassium 4.2 mmol/L (3.5-5.1); Sodium 143 mmol/L (137-145); Total Protein 6.1 g/dL (6.3-8.2)
[2017-10-11 14:27] LABS: Creatine Kinase MB 1.6 ng/mL (0.0-2.4); INR 2.6 (<1.2); Partial Thromboplastin Time 37.7 sec (22.0-30.0); Prothrombin Time 23.8 sec (9.0-12.0)
[2017-10-11 14:28] LABS: Troponin I 0.12 ng/mL (0.000-0.034)
[2017-10-11] MEDS ORDERED: ACETAMINOPHEN TAB 500 MG TAB PO STA (14:42)
--- NOTE | 2017-10-11 14:42 | ED ---
General Adult HPI - General Chief complaint: Weakness Stated complaint: Weakness Time Seen by Provider: 10/11/17 13:09 Source: patient Mode of arrival: EMS Limitations: altered mental status - History of Present Illness Initial comments: 77 years old female been feeling weak since 8 PM yesterday,, he is very active by the caregiver this morning he was unable to get out of his bed or is a change from back to his wheelchair as a chronic infection of face left foot he had great toe amputation done in March 2017 according to the caregiver it has been infected since then has been seeing Dr. Snow has a headache no neck neck stiffness no chest pain or shortness of breath no abdominal pain does complain about the generalized pains in his shoulders and his major joints she does have a history of rheumatoid arthritis no symptoms of TIA or CVA - Related Data Home Medications Medication Instructions Recorded Confirmed Acetaminophen-Codeine 300-30mg 1 tab PO Q6H PRN 07/18/16 10/11/17 [Tylenol w/codeine #3] Aspirin 81 mg PO DAILY 07/18/16 10/11/17 Gabapentin [Neurontin] 300 mg PO TID 07/18/16 10/11/17 Hydroxychloroquine Sulfate 200 mg PO DAILY 07/18/16 10/11/17 [Plaquenil] L.acidoph,Paracasei, B.lactis 1 cap PO DAILY 07/18/16 10/11/17 [Probiotic] Tamsulosin [Flomax] 0.4 mg PO DAILY 07/18/16 10/11/17 fentaNYL 50MCG/HR PATCH [Duragesic 50 mcg TRANSDERM Q72H 07/18/16 10/11/17 50MCG/HR] predniSONE 10 mg PO QAM 07/18/16 10/11/17 Digoxin [Lanoxin] 125 mcg PO QAM 01/10/17 10/11/17 Ferrous Sulfate [Feosol] 325 mg PO DAILY 08/21/17 10/11/17 Cholecalciferol (Vitamin D3) 2,000 unit PO DAILY 10/11/17 10/11/17 [Vitamin D3] Cyclobenzaprine [Flexeril] 5 mg PO HS 10/11/17 10/11/17 Warfarin [Coumadin] 1.5 mg PO HS 10/11/17 10/11/17 Allergies Allergy/AdvReac Type Severity Reaction Status Date / Time meperidine Allergy Nausea & Verified 10/11/17 13:46 Vomiting morphine AdvReac Confusion Verified 10/11/17 13:46 Review of Systems ROS Statement: Those systems with pertinent positive or pertinent negative responses have been documented in the HPI. ROS Other: All systems not noted in ROS Statement are negative. Past Medical History Past Medical History: Atrial Fibrillation, Deep Vein Thrombosis (DVT), Osteoarthritis (OA), Rheumatoid Arthritis (RA), Skin Disorder Additional Past Medical History / Comment(s): asbestosis, wound outside left foot, hx colitis, wheelchair-non ambulatory from severe RA, "low BP", hx DVT rt leg History of Any Multi-Drug Resistant Organisms: MRSA Date of last positivie culture/infection: lt knee MDRO Source:: lt. leg Past Surgical History: Appendectomy, Back Surgery, Heart Catheterization, Joint Replacement, Tonsillectomy Additional Past Surgical History / Comment(s): hips & knees,metatarsal heads removed,fingers,shoulder joint replaced,spinal fusion C1&2,colectomy 08/28/16 debridement left lateral foot Past Anesthesia/Blood Transfusion Reactions: Postoperative Nausea & Vomiting ( PONV) Past Psychological History: No Psychological Hx Reported Smoking Status: Former smoker Past Alcohol Use History: None Reported Past Drug Use History: None Reported - Past Family History Mother Family Medical History: Cancer Additional Family Medical History / Comment(s): Breast General Exam - General Exam Comments Initial Comments: General: The patient is awake and alert, in no distress, and does not appear acutely ill. GCS is 15 Skin: Skin is warm and dry and no rashes or lesions are noted. He has chronic discoloration of his both upper extremities Eye: Pupils are equal, round and reactive to light, extra-ocular movements are intact; there is normal conjunctiva bilaterally. Ears, nose, mouth and throat: There are moist mucous membranes and no oral lesions. Neck: The neck is supple, there is no tenderness Cardiovascular: There is a regular rate and rhythm. No murmur, rub or gallop is appreciated. Respiratory: To auscultation bilateral, crease breath sounds bilateral noticed some crackles at the right lower base Gastrointestinal: Soft, non-distended, non-tender abdomen without masses or organomegaly noted. There is no rebound or guarding present. Bowel sounds are unremarkable. Back: There is no tenderness to palpation in the midline. There is no obvious deformity. Musculoskeletal: There is chronic deformity rheumatoid arthritis of the both wrists joints, patient sent is rheumatoid arthritis also noticed chronic venous stasis changes in the lower extremities as well noticed a born on the left foot which is 2 x 2 centimeter is about 5 mm deep noticed some secretions in this wound legs are warm without Neurological: CN II-XII intact, Cranial nerves III through XII are intact. There are no obvious motor or sensory deficits. Coordination appears grossly intact. Speech is normal. Psychiatric: Cooperative, appropriate mood & affect, normal judgment. Limitations: altered mental status Course Vital Signs 10/11/17 10/11/17 13:11 14:29 Temperature 98.9 F Pulse Rate 101 H 95 Respiratory 16 20 Rate Blood Pressure 106/57 140/72 O2 Sat by Pulse 96 94 L Oximetry Patient is reassessed at 1450, noticed white count is elevated with a left shift his INR is 2.5 is cyanotic candidate for any heparinization though his troponin is elevated EKG was unremarkable head CT is pending at this point he does not get headache often is complaining about headache today though there was no trauma but he hasn't he is on a Coumadin and INR is therapeutic to rule out any subdural I will go ahead and do a head CT he be admitted to Dr. Payton' s service with a cardiology consult EKG Findings - EKG Comments: EKG Findings:: EKG is normal sinus rhythm ventricular rate is 87 CT interval is 170 QRS duration is 92 QT/QTc is 512/616 review of this EKG reveals flattening of the T-wave in lead 1 to and the lateral chest leads V5 and V6 no ST elevation noticed ST depression noticed Medical Decision Making - Lab Data Result diagrams: 10/11/17 13:37 10/11/17 13:37 Lab Results 10/11/17 10/11/17 10/11/17 Range/Units 13:37 13:37 13:37 WBC 18.9 H (3.8-10.6) k/uL RBC 3.70 L (4.30-5.90) m/uL Hgb 10.5 L (13.0-17.5) gm/dL Hct 33.6 L (39.0-53.0) % MCV 91.0 (80.0-100.0) fL MCH 28.4 (25.0-35.0) pg MCHC 31.2 (31.0-37.0) g/dL RDW 15.8 H (11.5-15.5) % Plt Count 271 (150-450) k/uL Neutrophils % 90 % Lymphocytes % 4 % Monocytes % 4 % Eosinophils % 1 % Basophils % 0 % Neutrophils # 17.0 H (1.3-7.7) k/uL Lymphocytes # 0.7 L (1.0-4.8) k/uL Monocytes # 0.8 (0-1.0) k/uL Eosinophils # 0.2 (0-0.7) k/uL Basophils # 0.0 (0-0.2) k/uL PT (9.0-12.0) sec INR (<1.2) APTT (22.0-30.0) sec Sodium 143 (137-145) mmol/L Potassium 4.2 (3.5-5.1) mmol/L Chloride 100 (98-107) mmol/L Carbon Dioxide 30 (22-30) mmol/L Anion Gap 13 mmol/L BUN 34 H (9-20) mg/dL Creatinine 0.90 (0.66-1.25) mg/dL Est GFR (CKD-EPI)AfAm >90 (>60 ml/min/1.73 sqM) Est GFR (CKD-EPI)NonAf 82 (>60 ml/min/1.73 sqM) Glucose 94 (74-99) mg/dL Plasma Lactic Acid Kurtis (0.7-2.0) mmol/L Calcium 9.4 (8.4-10.2) mg/dL Total Bilirubin 1.0 (0.2-1.3) mg/dL AST 19 (17-59) U/L ALT 19 L (21-72) U/L Alkaline Phosphatase 82 (38-126) U/L Total Creatine Kinase 78 (55-170) U/L CK-MB (CK-2) 1.6 (0.0-2.4) ng/mL CK-MB (CK-2) Rel Index 2.1 Troponin I 0.120 H* (0.000-0.034) ng/mL Total Protein 6.1 L (6.3-8.2) g/dL Albumin 3.1 L (3.5-5.0) g/dL 10/11/17 10/11/17 Range/Units 13:37 13:37 WBC (3.8-10.6) k/uL RBC (4.30-5.90) m/uL Hgb (13.0-17.5) gm/dL Hct (39.0-53.0) % MCV (80.0-100.0) fL MCH (25.0-35.0) pg MCHC (31.0-37.0) g/dL RDW (11.5-15.5) % Plt Count (150-450) k/uL Neutrophils % % Lymphocytes % % Monocytes % % Eosinophils % % Basophils % % Neutrophils # (1.3-7.7) k/uL Lymphocytes # (1.0-4.8) k/uL Monocytes # (0-1.0) k/uL Eosinophils # (0-0.7) k/uL Basophils # (0-0.2) k/uL PT 23.8 H (9.0-12.0) sec INR 2.6 H (<1.2) APTT 37.7 H (22.0-30.0) sec Sodium (137-145) mmol/L Potassium (3.5-5.1) mmol/L Chloride (98-107) mmol/L Carbon Dioxide (22-30) mmol/L Anion Gap mmol/L BUN (9-20) mg/dL Creatinine (0.66-1.25) mg/dL Est GFR (CKD-EPI)AfAm (>60 ml/min/1.73 sqM) Est GFR (CKD-EPI)NonAf (>60 ml/min/1.73 sqM) Glucose (74-99) mg/dL Plasma Lactic Acid Kurtis 1.6 (0.7-2.0) mmol/L Calcium (8.4-10.2) mg/dL Total Bilirubin (0.2-1.3) mg/dL AST (17-59) U/L ALT (21-72) U/L Alkaline Phosphatase (38-126) U/L Total Creatine Kinase (55-170) U/L CK-MB (CK-2) (0.0-2.4) ng/mL CK-MB (CK-2) Rel Index Troponin I (0.000-0.034) ng/mL Total Protein (6.3-8.2) g/dL Albumin (3.5-5.0) g/dL Disposition Clinical Impression: Sepsis, Elevated troponin, Weakness, Headache Disposition: ADMITTED IP TO THIS [facility] Condition: Good Referrals: Pete Joseph MD [Primary Care Provider] - 1-2 days
[2017-10-11] MEDS ORDERED: PIPERACILLIN-TAZOBACTAM 3.375 GM in DEXTROSE/WATER 1 50ML.BAG IVPB STA (14:53)
[2017-10-11] MEDS ORDERED: ASPIRIN 81 MG PO STA (14:55)
[2017-10-11] MEDS ORDERED: NITROGLYCERIN SL TABS 0.4 MG TAB SUBLINGUAL PRN (15:27)
[2017-10-11] MEDS ORDERED: HYDROCORTISONE SUCCINATE 100 MG/2 ML VIAL IV STA (15:40)
[2017-10-11 15:46] LABS: Appearance,Urine Clear (Clear); Bilirubin,Urine Negative (Negative); Blood,Urine Moderate (Negative); Color,Urine Yellow; Glucose,Urine (UA) Negative (Negative); Ketones,Urine 1+ (Negative); Leukocyte Esterase,Urine Negative (Negative); Mucus,Urine Rare /hpf; Nitrite,Urine Negative (Negative); PH, Urine 6.5 (5.0-8.0); Protein,Urine Trace (Negative); RBC,Urine 85 /hpf (0-5); Specific Gravity,Urine 1.016 (1.001-1.035); Urobilinogen,Urine <2.0 mg/dL (<2.0); WBC,Urine 4 /hpf (0-5)
[2017-10-11] MEDS: GABAPENTIN 300 MG CAP PO SCH ×2 (16:27→20:37)
--- NOTE | 2017-10-11 17:50 | CT ---
EXAMINATION: CT brain wo con DATE AND TIME: 10/11/2017 5:16 PM ORDERING PROVIDER: Praveena Luis CLINICAL INDICATION: Pain TECHNIQUE: Standard departmental protocol. DLP 1242 mGy-cm. COMPARISON: None. DESCRIPTION: The calvarium is intact. There is no intracranial hemorrhage. There is no mass or mass e ffect. There is no definite new attenuation defect. Remainder of the intra-axial and extra-axial comp artment examination is unremarkable. The paranasal sinuses, middle ear cavities, and mastoid sinus ai r cells are clear. The orbits are intact. IMPRESSION: NO ACUTE PROCESS.
[2017-10-11 19:35] LABS: Creatine Kinase MB 3.6 ng/mL (0.0-2.4); Troponin I 0.145 ng/mL (0.000-0.034)
[2017-10-11] MEDS: ATORVASTATIN 40 MG TAB PO SCH (20:35)
[2017-10-11] MEDS: WARFARIN 1.5 MG TAB PO SCH (20:35)
[2017-10-11] MEDS: CYCLOBENZAPRINE 5 MG TAB PO SCH (20:35)
[2017-10-11] MEDS: Acetaminophen-Codeine 300-30mg TAB PO PRN (20:40)
[2017-10-12] MEDS: PIPERACILLIN-TAZOBACTAM 3.375 GM in DEXTROSE/WATER 1 50ML.BAG IVPB SCH ×4 (00:01→23:29)
[2017-10-12] MEDS: HYDROCORTISONE SUCCINATE 100 MG/2 ML VIAL IV SCH ×3 (00:02→20:30)
[2017-10-12 03:06] LABS: Cholesterol 106 mg/dL (<200); HDL Cholesterol 38 mg/dL (40-60); LDL Cholesterol,Calculated 53 mg/dL (0-99); Triglycerides 75 mg/dL (<150)
[2017-10-12 03:28] LABS: Creatine Kinase MB 5.5 ng/mL (0.0-2.4); Troponin I 0.102 ng/mL (0.000-0.034)
[2017-10-12 06:53] LABS: Basophils % (A) 0 %; Eosinophils % (A) 0 %; HCT 29.5 % (39.0-53.0); HGB 9.1 gm/dL (13.0-17.5); Lymphocytes # (A) 0.3 k/uL (1.0-4.8); Lymphocytes % (A) 3 %; MCH 28.4 pg (25.0-35.0); MCHC 30.7 g/dL (31.0-37.0); MCV 92.4 fL (80.0-100.0); Mean Platelet Volume 7.4; Monocytes # (A) 0.2 k/uL (0-1.0); Monocytes % (A) 2 %; Neutrophils # (A) 10.9 k/uL (1.3-7.7); Neutrophils % (A) 95 %; Platelet Count 226 k/uL (150-450); RBC 3.19 m/uL (4.30-5.90); RDW 15.5 % (11.5-15.5); WBC 11.5 k/uL (3.8-10.6)
[2017-10-12 07:05] LABS: Anion Gap 8 mmol/L; Blood Urea Nitrogen 35 mg/dL (9-20); Calcium 8.3 mg/dL (8.4-10.2); Carbon Dioxide 30 mmol/L (22-30); Chloride 104 mmol/L (98-107); Glucose 102 mg/dL (74-99); Potassium 4.3 mmol/L (3.5-5.1); Sodium 142 mmol/L (137-145)
[2017-10-12] MEDS ORDERED: predniSONE 10 MG TAB PO SCH (09:00)
[2017-10-12] MEDS: ASPIRIN 325 MG TAB PO SCH (10:04)
[2017-10-12] MEDS: GABAPENTIN 300 MG CAP PO SCH ×3 (10:05→20:30)
[2017-10-12] MEDS: TAMSULOSIN 0.4 MG CAP.ER.24H PO SCH (10:05)
[2017-10-12] MEDS: DIGOXIN 125 MCG TAB PO SCH (10:05)
[2017-10-12] MEDS: HYDROXYCHLOROQUINE SULFATE 200 MG TAB PO SCH (10:05)
[2017-10-12] MEDS: LACTOBACILLUS ACIDOPH & BULGAR 1 EACH PACKET PO SCH (10:11)
[2017-10-12] MEDS: CHOLECALCIFEROL 1,000 UNIT TAB PO SCH (12:11)
[2017-10-12] MEDS: FERROUS SULFATE 325 MG TAB PO SCH (12:11)
--- NOTE | 2017-10-12 12:18 | CONS ---
CONSULTATION CHIEF COMPLAINT: Fatigue, tiredness, and weakness. This is a 77-year-old gentleman with history of arthritis, left great toe amputation who has had infection on and off since, presented to hospital complaining of fatigue, tiredness, and inability to get up and move from his wheelchair which is how he normally ambulates. He comes into the ER where a diagnosis of possible infection was made and for unclear reasons, Troponins were checked. They came back elevated due to which he is admitted and Cardiology had been consulted. Patient denies chest pain or difficulty in breathing. There is no history of focal neurological deficits. The patient has severe disabling rheumatoid arthritis. He has history of chronic atrial fibrillation, and is currently on Coumadin, sees my associate Dr. hCi Stock for this. PAST MEDICAL HISTORY: Significant for deforming rheumatoid arthritis, chronic atrial fibrillation. CURRENT MEDICATIONS: Include Lanoxin 0.125 daily, iron, Flexeril, Coumadin, fentanyl, Flomax, Plaquenil, Neurontin, aspirin and Tylenol 3. ALLERGY: To MEPERIDINE and MORPHINE. FAMILY HISTORY: Negative for premature coronary artery disease. SOCIAL HISTORY: Negative for current smoking, ETOH abuse or drug abuse. He ambulates with a wheelchair and requires significant help at home to get around. REVIEW OF SYSTEMS: HEENT is unremarkable. CARDIAC: As described above. RESPIRATORY: Negative. GI: Negative. GENITOURINARY: Negative. MUSCULOSKELETAL: Significant for severe disabling rheumatoid arthritis. CONSTITUTIONAL: Significant for fatigue, tiredness and not feeling well. DEHAIRING MACHINE TENDER: Negative. PSYCHOSOCIAL: Negative. DERM: Significant for ecchymosis in his skin. The rest of the system review is not relevant. On exam, the patient is afebrile. Heart rate is 74 beats per minute, blood pressure 93/50, respiratory rate is 18, O2 saturation of 99% on room air. There is no jugular venous distention. Carotid upstroke is diminished. There is no bruit. Chest exam reveals good air entry bilaterally. Heart exam reveals first and second heart sounds. Systolic murmur at the apex and an ejection systolic murmur in the aortic area. Abdomen is soft. Exam of extremities did not reveal any edema. Peripheral pulses are felt. LABS: Show a hemoglobin of 9.1, platelet count is 226, potassium is 4.3, creatinine is 0.9. Troponins are 0.1, 0.1 and 0.1. EKG shows a normal sinus rhythm. ASSESSMENT: 1. Elevated troponin probably related to underlying systemic illness. 2. Fatigue, tiredness, not feeling well, probably related to the infection of the toe. 3. History of chronic atrial fibrillation, currently in sinus rhythm. PLAN: From cardiac standpoint the patient is stable. I will obtain a 2D echo to evaluate LV function. Please continue Coumadin to maintain an INR of around 2.5 to 3. No further cardiac workup is necessary for the elevated troponin. Upon discharge, arrange follow up with Dr. Chi Stock. MMODL / IJN: [id number] /
[2017-10-12 12:26] LABS: Glucose,Whole Blood 94 mg/dL (75-99)
--- NOTE | 2017-10-12 15:26 | P.HPIM ---
History of Present Illness H&P Date: 10/12/17 Chief Complaint: Generalized weakness 77 years old male patient of Dr. 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 Patient recently underwent debridement of his left foot with Dr. Vigil on 10/09 and was started on erythromycin. Patient was unable to fill in erythromycin and therefore clindamycin was initiated. Patient took 1 or 2 doses of clindamycin and the symptoms are related to it. On evaluation today at bedside patient is feeling back to his baseline with improvement in his weakness. Patient was initiated on stress dose of hydrocortisone since yesterday. Blood pressures improved from systolic of 88/52 to 93/52. Vitals otherwise are stable with no fever episodes. Labs WBC of 11.5 that improved from 18 since yesterday. Hemoglobin 9.1, glucose 102, increase troponin .12 --.145 ---.102. Patient denies any chest pain or breathing difficulty or cough. Infectious disease and cardiology consulted for evaluation of the ulcer and increased troponin. Patient does not appear to be in sepsis. Review of Systems Constitutional: Denies chills, Denies fever, endorses lethargy and appetite Denies weight loss Eyes: denies decreased vision, denies diplopia, denies discharge, denies pain Ears: deny: decreased hearing Ears, nose, mouth and throat: Denies dental pain, Denies headache, Denies nasal discharge, Denies nose pain Cardiovascular: Denies chest pain, Denies decreased exercise tolerance, Denies edema, Denies high blood pressure, endorses irregular heart beat, Denies palpitations, Denies paroxysmal nocturnal dyspnea, Denies rapid heart beat, Denies shortness of breath Respiratory: Denies congestion, Denies cough, Denies cough with sputum, Denies dyspnea, Denies home oxygen, Denies wheezing Gastrointestinal: Denies abdominal pain, Denies change in bowel habits, Denies coffee ground emesis, Denies early satiety, Denies excessive gas, Denies heartburn, Denies hematemesis, Denies hematochezia, Denies loss of appetite, Denies nausea, Denies vomiting Genitourinary: Denies dysuria, Denies flank pain, Denies kidney stones, Denies menorrhagia, Denies urgency, Denies urinary frequency Musculoskeletal: Patient uses a walker and has difficulty coming out of bed, has severely debilitating rheumatoid arthritis in both hands and feet Integumentary: Denies rash, Denies wounds, Denies brittle nails, Denies change in hair/nails, Denies darkening of skin positive for left foot ulcer on the medial aspect Neurological: Denies balance difficulties, Denies change in speech, Denies double vision, Denies gait dysfunction, Denies loss of vision, Denies motor disturbance, Denies numbness, Denies paralysis, Denies paresthesias, Denies seizures Psychiatric: Denies anxiety, Denies depression Endocrine: Denies excessive sweating, Denies excessive thirst, Denies high blood sugars, Denies palpitations Hematologic/Lymphatic: Denies easy bruising, Denies lymphadenopathy Past Medical History Past Medical History: Atrial Fibrillation, Deep Vein Thrombosis (DVT), Osteoarthritis (OA), Rheumatoid Arthritis (RA), Skin Disorder Additional Past Medical History / Comment(s): small hiatal hernia, asbestosis, wound outside left foot, hx colitis, wheelchair-non ambulatory from severe RA- "difficulty bending wrists or striaghtening arms, hx fx back,, "low BP", hx DVT rt [id number], kidney stones, stomach ulcer. History of Any Multi-Drug Resistant Organisms: MRSA Date of last positivie culture/infection: lt knee MDRO Source:: lt. leg Past Surgical History: Appendectomy, Back Surgery, Heart Catheterization, Joint Replacement, Tonsillectomy Additional Past Surgical History / Comment(s): alfredito hip replacments &alfredito knee replacments,,metatarsal heads removed,fingers,shoulder joint replaced,spinal fusion C1&2,colectomy 08/28/16 debridement left lateral foot, lt great toe amp thru metatarsal, upper endocodpy. picc line -since removed,lithotripsy x2 Past Anesthesia/Blood Transfusion Reactions: Postoperative Nausea & Vomiting ( PONV) Smoking Status: Former smoker - Past Family History Mother Family Medical History: AICD/Pacemaker, Cancer Additional Family Medical History / Comment(s): Breast, pacemaker Father Family Medical History: AICD/Pacemaker Additional Family Medical History / Comment(s): pacemaker Medications and Allergies Home Medications Medication Instructions Recorded Confirmed Type Acetaminophen-Codeine 300-30mg 1 tab PO Q6H PRN 07/18/16 10/11/17 History [Tylenol w/codeine #3] Aspirin 81 mg PO DAILY 07/18/16 10/11/17 History Gabapentin [Neurontin] 300 mg PO TID 07/18/16 10/11/17 History Hydroxychloroquine Sulfate 200 mg PO DAILY 07/18/16 10/11/17 History [Plaquenil] L.acidoph,Paracasei, B.lactis 1 cap PO DAILY 07/18/16 10/11/17 History [Probiotic] Tamsulosin [Flomax] 0.4 mg PO DAILY 07/18/16 10/11/17 History fentaNYL 50MCG/HR PATCH [Duragesic 50 mcg TRANSDERM Q72H 07/18/16 10/11/17 History 50MCG/HR] predniSONE 10 mg PO QAM 07/18/16 10/11/17 History Digoxin [Lanoxin] 125 mcg PO QAM 01/10/17 10/11/17 History Ferrous Sulfate [Feosol] 325 mg PO DAILY 08/21/17 10/11/17 History Cholecalciferol (Vitamin D3) 2,000 unit PO DAILY 10/11/17 10/11/17 History [Vitamin D3] Cyclobenzaprine [Flexeril] 5 mg PO HS 10/11/17 10/11/17 History Warfarin [Coumadin] 1.5 mg PO HS 10/11/17 10/11/17 History Allergies Allergy/AdvReac Type Severity Reaction Status Date / Time meperidine Allergy Nausea & Verified 10/11/17 13:46 Vomiting morphine AdvReac Confusion Verified 10/11/17 13:46 Physical Exam Vitals: Vital Signs Temp Pulse Pulse Resp BP BP Pulse Ox 10/12/17 08:00 97.1 F L 74 16 93/52 99 10/12/17 04:00 97.0 F L 68 17 90/50 98 10/12/17 00:00 97.6 F 70 17 107/59 97 10/11/17 20:00 97 F L 75 17 96/56 97 10/11/17 19:19 82 90/50 10/11/17 18:10 97.4 F L 80 16 88/52 99 10/11/17 17:47 97.6 F 78 20 107/56 100 10/11/17 15:35 77 18 113/47 97 10/11/17 14:29 95 20 140/72 94 L Intake and Output 10/11/17 10/12/17 10/12/17 22:59 06:59 14:59 Other: Voiding Method Urinal Urinal Bedside Commode Urinal # Voids 1 # Bowel Movements 1 Weight 58 kg - Constitutional General appearance: cooperative, no acute distress, thin-appearing very pleasant - EENT Eyes: anicteric sclerae, PERRLA, normal appearance ENT: hearing grossly normal - Neck Neck: no lymphadenopathy, normal ROM, no other, no rigidity, no stridor, no thyromegaly - Respiratory Respiratory: bilateral: CTA, negative: diminished, dullness, rales, rhonchi - Cardiovascular Rhythm: Irregularly irregular Heart sounds: normal: S1, S2 Abnormal Heart Sounds: 3+ systolic murmur, no diastolic murmur, no rub, no S3 Gallop, no S4 Gallop, no click, no other - Gastrointestinal General gastrointestinal: normal bowel sounds, soft - Integumentary Integumentary: 5 X 5 cm ulcer with clean borders and purulent drainage, granulation tissue seen at the base, visible tendon of the feet, with edema of the feet. - Neurologic Neurologic: CNII-XII intact - Musculoskeletal Musculoskeletal: strength equal bilaterally, severe joint deformation from rheumatoid arthritis - Psychiatric Psychiatric: A&O x's 3, appropriate affect Results CBC & Chem 7: 10/13/17 05:56 10/13/17 05:56 Labs: Abnormal Lab Results - Last 24 Hours (Table) 10/11/17 10/11/17 10/11/17 Range/Units 13:37 13:37 15:20 WBC (3.8-10.6) k/uL RBC (4.30-5.90) m/uL Hgb (13.0-17.5) gm/dL Hct (39.0-53.0) % MCHC (31.0-37.0) g/dL Neutrophils # (1.3-7.7) k/uL Lymphocytes # (1.0-4.8) k/uL PT 23.8 H (9.0-12.0) sec INR 2.6 H (<1.2) APTT 37.7 H (22.0-30.0) sec BUN (9-20) mg/dL Glucose (74-99) mg/dL Calcium (8.4-10.2) mg/dL CK-MB (CK-2) (0.0-2.4) ng/mL Troponin I 0.120 H* (0.000-0.034) ng/mL HDL Cholesterol (40-60) mg/dL Urine Protein Trace H (Negative) Urine Ketones 1+ H (Negative) Urine Blood Moderate H (Negative) Urine RBC 85 H (0-5) /hpf Urine Mucus Rare H (None) /hpf 10/11/17 10/12/17 10/12/17 Range/Units 18:55 02:13 02:13 WBC (3.8-10.6) k/uL RBC (4.30-5.90) m/uL Hgb (13.0-17.5) gm/dL Hct (39.0-53.0) % MCHC (31.0-37.0) g/dL Neutrophils # (1.3-7.7) k/uL Lymphocytes # (1.0-4.8) k/uL PT (9.0-12.0) sec INR (<1.2) APTT (22.0-30.0) sec BUN (9-20) mg/dL Glucose (74-99) mg/dL Calcium (8.4-10.2) mg/dL CK-MB (CK-2) 3.6 H* 5.5 H* (0.0-2.4) ng/mL Troponin I 0.145 H* 0.102 H* (0.000-0.034) ng/mL HDL Cholesterol 38 L (40-60) mg/dL Urine Protein (Negative) Urine Ketones (Negative) Urine Blood (Negative) Urine RBC (0-5) /hpf Urine Mucus (None) /hpf 10/12/17 10/12/17 Range/Units 06:10 06:10 WBC 11.5 H (3.8-10.6) k/uL RBC 3.19 L (4.30-5.90) m/uL Hgb 9.1 L (13.0-17.5) gm/dL Hct 29.5 L (39.0-53.0) % MCHC 30.7 L (31.0-37.0) g/dL Neutrophils # 10.9 H (1.3-7.7) k/uL Lymphocytes # 0.3 L (1.0-4.8) k/uL PT (9.0-12.0) sec INR (<1.2) APTT (22.0-30.0) sec BUN 35 H (9-20) mg/dL Glucose 102 H (74-99) mg/dL Calcium 8.3 L (8.4-10.2) mg/dL CK-MB (CK-2) (0.0-2.4) ng/mL Troponin I (0.000-0.034) ng/mL HDL Cholesterol (40-60) mg/dL Urine Protein (Negative) Urine Ketones (Negative) Urine Blood (Negative) Urine RBC (0-5) /hpf Urine Mucus (None) /hpf Microbiology - Last 24 Hours (Table) 10/11/17 15:20 Gram Stain - Preliminary Foot - Left Wound Culture - Preliminary Strep agalactiae - (group b) 10/11/17 15:20 Urine Culture - Preliminary Urine,Catheterized Thrombosis Risk Factor Assmnt - DVT/VTE Prophylaxis DVT/VTE Prophylaxis: Pharmacologic Prophylaxis ordered Assessment and Plan Plan: #1 increased weakness secondary to underlying adrenal insufficiency, from chronic steroids, underlying dehydration , infection. Since patient also has history of initiation of clindamycin is a possibility of medication side effect leading to patient's presentation. We will get PT to evaluate the patient. Currently patient's symptoms have improved since yesterday #2 left foot ulcer with purulent drainage secondary to Osteomyelitis , no sepsis Continue Zosyn 3.37 mg every 8 hours. Continue stress dosing with hydrocortisone. Will switch to prednisone on discharge. Debridement has been done already on 10/[address] Vigil. Wound care follow-up with Dr. Vigil #3 rheumatoid arthritis continue hydroxychloroquine 200 mg daily. Neurontin 300 3 times a day #4 persistent atrial fibrillation continue digoxin 125 g pain. Continue Coumadin and her between 2.5-3 #5 acute troponinemia likely secondary to systemic illness. Cardiology ruled out cardiac etiology of the increase troponin. Patient will follow-up with Dr. Stock as outpatient 6 chronic steroid use. Patient is on 10 mg of prednisone for rheumatoid arthritis. We'll stress dose with hydrocortisone 50 every 12 today. 7 BPH continue Flomax 0.4 mg daily 8 history of iron deficiency anemia continue ferrous sulfate 325 milligrams by mouth daily 9 DVT prophylaxis continue Coumadin 10 disposition - patient may need 1-2 inpatient nights.
[2017-10-12] MEDS ORDERED: HYDROCORTISONE SUCCINATE 100 MG/2 ML VIAL IV SCH (16:00)
[2017-10-12 16:49] LABS: Glucose,Whole Blood 128 mg/dL (75-99)
--- NOTE | 2017-10-12 17:37 | P.CONS ---
History of Present Illness - Reason for Consult Consult date: 10/12/17 - Chief Complaint Weakness - History of Present Illness 77-year-old male known to the infectious disease service from the patient's care in the wound healing Center in prior hospitalizations. He has advanced rheumatoid arthritis with extensive destruction of his hands and lower extremities with great difficulty with function. His had declining status over the last year. Has had difficulties with the left great toe with chronic ulceration. Despite extensive interventions he finally had an amputation. This all having some residual ulceration at that site for which he is followed with Dr. Vigil. There is concerns from worsening infection he was placed on antibiotic therapy with clindamycin and erythromycin. He did start the clindamycin and has been feeling considerably weaker and ill since it started. He became hypotensive had some low-grade fever and Presented to the Emergency Center. Admission There Was Evidence of Some Relative Hypotension and Is Responded to Current Fluids As Well As a Dose of Hydrocortisone. With Concern to the Ulceration the Infectious Diseases Consultation Was Requested. The patient relates that he feels slightly better today. But still feels very poorly overall. He has generalized weakness. He is having difficulties attempting to transfer from bed to commode. Requiring help. His appetite is improving. He denies any she had nausea or emesis today. He ate some of his lunch. Review of Systems HEENT:Denies headache or acute visual change. Denies sinus or mouth discomforts. Denies neck stiffness or pain. Denies significant oral cavity pain. Denies difficulty on swallowing. Lungs: Denies significant shortness of breath, cough, sputum production, or hemoptysis. Cardiovascular: Denies significant shortness of breath, chest pain, chest wall pain, orthopnea, dyspnea on exertion, syncope Gastrointestinal:Denies nausea, vomiting, diarrhea, constipation, hematemesis, melena, hematochezia. No no significant change of bowel habit noticed. Musculoskeletal: Significant destruction from his rheumatoid arthritis Skin: Ulceration to the left foot at the amputation site Neuro: Denies headache or visual change. Denies any new onset weakness or difficulty with ambulation. Denies falls or seizures. Psychiatric:Denies anxiety or depression. Endocrine: Severe fatigue continued weight loss Past Medical History Past Medical History: Atrial Fibrillation, Deep Vein Thrombosis (DVT), Osteoarthritis (OA), Rheumatoid Arthritis (RA), Skin Disorder Additional Past Medical History / Comment(s): small hiatal hernia, asbestosis, wound outside left foot, hx colitis, wheelchair-non ambulatory from severe RA- "difficulty bending wrists or striaghtening arms, hx fx back,, "low BP", hx DVT rt [id number], kidney stones, stomach ulcer. History of Any Multi-Drug Resistant Organisms: MRSA Year Discovered:: lt knee MDRO Source:: lt. leg Past Surgical History: Appendectomy, Back Surgery, Heart Catheterization, Joint Replacement, Tonsillectomy Additional Past Surgical History / Comment(s): alfrdeito hip replacments &alfredito knee replacments,,metatarsal heads removed,fingers,shoulder joint replaced,spinal fusion C1&2,colectomy 08/28/16 debridement left lateral foot, lt great toe amp thru metatarsal, upper endocodpy. picc line -since removed,lithotripsy x2 Past Anesthesia/Blood Transfusion Reactions: Postoperative Nausea & Vomiting ( PONV) Smoking Status: Former smoker - Past Family History Mother Family Medical History: AICD/Pacemaker, Cancer Additional Family Medical History / Comment(s): Breast, pacemaker Father Family Medical History: AICD/Pacemaker Additional Family Medical History / Comment(s): pacemaker Medications and Allergies Home Medications and Allergies Comment(s): Current Medications Acetaminophen/Codeine Phosphate (Tylenol #3) 1 each PO Q6H PRN PRN Reason: Pain Last Admin: 10/11/17 20:40 Dose: 1 each Aspirin (Aspirin) 325 mg PO DAILY [facility] Last Admin: 10/12/17 10:04 Dose: 325 mg Atorvastatin Calcium (Lipitor) 40 mg PO HS [facility] Last Admin: 10/11/17 20:35 Dose: 40 mg Cholecalciferol (Vitamin D3) 2,000 unit PO DAILY [facility] Last Admin: 10/12/17 12:11 Dose: 2,000 unit Cyclobenzaprine HCl (Flexeril) 5 mg PO HS [facility] Last Admin: 10/11/17 20:35 Dose: 5 mg Digoxin (Lanoxin) 125 mcg PO QAM [facility] Last Admin: 10/12/17 10:05 Dose: 125 mcg Fentanyl (Duragesic 50mcg/Hr Patch) 1 patch TRANSDERM Q72H [facility] Ferrous Sulfate (Feosol) 325 mg PO DAILY [facility] Last Admin: 10/12/17 12:11 Dose: 325 mg Gabapentin (Neurontin) 300 mg PO TID [facility] Last Admin: 10/12/17 17:05 Dose: 300 mg Hydrocortisone Sodium Succinate (Solu-Cortef) 50 mg IV Q12HR [facility] Hydroxychloroquine Sulfate (Plaquenil) 200 mg PO DAILY [facility] Last Admin: 10/12/17 10:05 Dose: 200 mg Piperacillin/Tazobactam/ (Dextrose 3.375 gm/ IV Solution) 50 mls @ 12.5 mls/hr IVPB Q8HR [facility] Last Admin: 10/12/17 17:04 Dose: 12.5 mls/hr Lactobacillus Acidoph/Bulgaricus (Lactinex) 1 each PO DAILY [facility] Last Admin: 10/12/17 10:11 Dose: 1 each Nitroglycerin (Nitrostat) 0.4 mg SUBLINGUAL Q5M PRN PRN Reason: Chest Pain Tamsulosin HCl (Flomax) 0.4 mg PO DAILY [facility] Last Admin: 10/12/17 10:05 Dose: 0.4 mg Warfarin Sodium (Coumadin) 1.5 mg PO HS [facility] Last Admin: 10/11/17 20:35 Dose: 1.5 mg Home Medications Medication Instructions Recorded Confirmed Type Acetaminophen-Codeine 300-30mg 1 tab PO Q6H PRN 07/18/16 10/11/17 History [Tylenol w/codeine #3] Aspirin 81 mg PO DAILY 07/18/16 10/11/17 History Gabapentin [Neurontin] 300 mg PO TID 07/18/16 10/11/17 History Hydroxychloroquine Sulfate 200 mg PO DAILY 07/18/16 10/11/17 History [Plaquenil] L.acidoph,Paracasei, B.lactis 1 cap PO DAILY 07/18/16 10/11/17 History [Probiotic] Tamsulosin [Flomax] 0.4 mg PO DAILY 07/18/16 10/11/17 History fentaNYL 50MCG/HR PATCH [Duragesic 50 mcg TRANSDERM Q72H 07/18/16 10/11/17 History 50MCG/HR] predniSONE 10 mg PO QAM 07/18/16 10/11/17 History Digoxin [Lanoxin] 125 mcg PO QAM 01/10/17 10/11/17 History Ferrous Sulfate [Feosol] 325 mg PO DAILY 08/21/17 10/11/17 History Cholecalciferol (Vitamin D3) 2,000 unit PO DAILY 10/11/17 10/11/17 History [Vitamin D3] Cyclobenzaprine [Flexeril] 5 mg PO HS 10/11/17 10/11/17 History Warfarin [Coumadin] 1.5 mg PO HS 10/11/17 10/11/17 History Allergies Allergy/AdvReac Type Severity Reaction Status Date / Time meperidine Allergy Nausea & Verified 10/11/17 13:46 Vomiting morphine AdvReac Confusion Verified 10/11/17 13:46 Physical Exam Vitals: Vital Signs Temp Pulse Pulse Resp BP BP Pulse Ox 10/12/17 08:00 97.1 F L 74 16 93/52 99 10/12/17 04:00 97.0 F L 68 17 90/50 98 10/12/17 00:00 97.6 F 70 17 107/59 97 10/11/17 20:00 97 F L 75 17 96/56 97 10/11/17 19:19 82 90/50 10/11/17 18:10 97.4 F L 80 16 88/52 99 10/11/17 17:47 97.6 F 78 20 107/56 100 Intake and Output 10/12/17 10/12/17 10/12/17 06:59 14:59 22:59 Intake Total 360 Output Total 350 Balance 10 Intake: Oral 360 Output: Urine 350 Other: Voiding Method Urinal Bedside Commode Urinal # Voids 1 # Bowel Movements 1 Weight 58 kg Pleasant 77-year-old male who apparently is a bit stronger and certainly more interactive and less confused than admission. HEENT: Anicteric conjunctiva are pink and moist nasal mucosa grossly intact without significant lesions, there is no thrush. Neck: The neck is supple without significant lymphadenopathy or thyromegaly. Lungs: Symmetrical air entry is noted with expiratory wheezing but no wil bronchial sounds Heart: Regular rate and rhythm with an audible S1-S2, no S3 positive S4. There is no significant murmur click or rub, PMI was nondisplaced. Abdomen: Positive bowel sounds soft and nontender without palpable masses or organomegaly. There was no guarding or rebound. Extremities: The upper and lower sugar shortness of the marked deformity from his severe rheumatoid arthritis. He has chronic skin changes with the thinning of the skin with chronic discoloration and bruising. No open ulcers are seen in the upper extremities. His IV site is intact. The lower extremities show evidence of similar changes from the arthritis but has evidence of the open ulceration to the left foot, please see the nursing photography for its current measurement. There is scant drainage. It is not tender. Neuro: Awake alert oriented to person place and time. Patient is able to communicate without difficulties but has significant weakness but has been able to sit up to the side of the bed which is improved from admission per data. Results Results: Laboratory Results WBC 11.5 k/uL (3.8-10.6) H 10/12/17 06:10 RBC 3.19 m/uL (4.30-5.90) L 10/12/17 06:10 Hgb 9.1 gm/dL (13.0-17.5) L 10/12/17 06:10 Hct 29.5 % (39.0-53.0) L 10/12/17 06:10 MCV 92.4 fL (80.0-100.0) 10/12/17 06:10 MCH 28.4 pg (25.0-35.0) 10/12/17 06:10 MCHC 30.7 g/dL (31.0-37.0) L 10/12/17 06:10 RDW 15.5 % (11.5-15.5) 10/12/17 06:10 Plt Count 226 k/uL (150-450) 10/12/17 06:10 Neutrophils % 95 % 10/12/17 06:10 Lymphocytes % 3 % 10/12/17 06:10 Monocytes % 2 % 10/12/17 06:10 Eosinophils % 0 % 10/12/17 06:10 Basophils % 0 % 10/12/17 06:10 Neutrophils # 10.9 k/uL (1.3-7.7) H 10/12/17 06:10 Lymphocytes # 0.3 k/uL (1.0-4.8) L 10/12/17 06:10 Monocytes # 0.2 k/uL (0-1.0) 10/12/17 06:10 Eosinophils # 0.0 k/uL (0-0.7) 10/12/17 06:10 Basophils # 0.0 k/uL (0-0.2) 10/12/17 06:10 PT 23.8 sec (9.0-12.0) H 10/11/17 13:37 INR 2.6 (<1.2) H 10/11/17 13:37 APTT 37.7 sec (22.0-30.0) H 10/11/17 13:37 Sodium 142 mmol/L (137-145) 10/12/17 06:10 Potassium 4.3 mmol/L (3.5-5.1) 10/12/17 06:10 Chloride 104 mmol/L (98-107) 10/12/17 06:10 Carbon Dioxide 30 mmol/L (22-30) 10/12/17 06:10 Anion Gap 8 mmol/L 10/12/17 06:10 BUN 35 mg/dL (9-20) H 10/12/17 06:10 Creatinine 0.90 mg/dL (0.66-1.25) 10/12/17 06:10 Est GFR (CKD-EPI)AfAm >90 (>60 ml/min/1.73 sqM) 10/12/17 06:10 Est GFR (CKD-EPI)NonAf 82 (>60 ml/min/1.73 sqM) 10/12/17 06:10 Glucose 102 mg/dL (74-99) H 10/12/17 06:10 POC Glucose (mg/dL) 128 mg/dL (75-99) H 10/12/17 16:43 POC Glu Order Checker ID Jennifer Pineda 10/12/17 16:43 Plasma Lactic Acid [place] 1.6 mmol/L (0.7-2.0) 10/11/17 13:37 Calcium 8.3 mg/dL (8.4-10.2) L 10/12/17 06:10 Total Bilirubin 1.0 mg/dL (0.2-1.3) 10/11/17 13:37 AST 19 U/L (17-59) 10/11/17 13:37 ALT 19 U/L (21-72) L 10/11/17 13:37 Alkaline Phosphatase 82 U/L (38-126) 10/11/17 13:37 Total Creatine Kinase 144 U/L (55-170) 10/12/17 02:13 CK-MB (CK-2) 5.5 ng/mL (0.0-2.4) H* 10/12/17 02:13 CK-MB (CK-2) Rel Index 3.8 10/12/17 02:13 Troponin I 0.102 ng/mL (0.000-0.034) H* 10/12/17 02:13 Total Protein 6.1 g/dL (6.3-8.2) L 10/11/17 13:37 Albumin 3.1 g/dL (3.5-5.0) L 10/11/17 13:37 Triglycerides 75 mg/dL (<150) 10/12/17 02:13 Cholesterol 106 mg/dL (<200) 10/12/17 02:13 LDL Cholesterol, Calc 53 mg/dL (0-99) 10/12/17 02:13 HDL Cholesterol 38 mg/dL (40-60) L 10/12/17 02:13 Urine Color Yellow 10/11/17 15:20 Urine Appearance Clear (Clear) 10/11/17 15:20 Urine pH 6.5 (5.0-8.0) 10/11/17 15:20 Ur Specific [place] 1.016 (1.001-1.035) 10/11/17 15:20 Urine Protein Trace (Negative) H 10/11/17 15:20 Urine Glucose (UA) Negative (Negative) 10/11/17 15:20 Urine Ketones 1+ (Negative) H 10/11/17 15:20 Urine Blood Moderate (Negative) H 10/11/17 15:20 Urine Nitrite Negative (Negative) 10/11/17 15:20 Urine Bilirubin Negative (Negative) 10/11/17 15:20 Urine Urobilinogen <2.0 mg/dL (<2.0) 10/11/17 15:20 Ur Leukocyte Esterase Negative (Negative) 10/11/17 15:20 Urine RBC 85 /hpf (0-5) H 10/11/17 15:20 Urine WBC 4 /hpf (0-5) 10/11/17 15:20 Urine Mucus Rare /hpf (None) H 10/11/17 15:20 CBC & Chem 7: 10/12/17 06:10 10/12/17 06:10 Labs: Abnormal Lab Results - Last 24 Hours (Table) 10/11/17 10/12/17 10/12/17 Range/Units 18:55 02:13 02:13 WBC (3.8-10.6) k/uL RBC (4.30-5.90) m/uL Hgb (13.0-17.5) gm/dL Hct (39.0-53.0) % MCHC (31.0-37.0) g/dL Neutrophils # (1.3-7.7) k/uL Lymphocytes # (1.0-4.8) k/uL BUN (9-20) mg/dL Glucose (74-99) mg/dL POC Glucose (mg/dL) (75-99) mg/dL Calcium (8.4-10.2) mg/dL CK-MB (CK-2) 3.6 H* 5.5 H* (0.0-2.4) ng/mL Troponin I 0.145 H* 0.102 H* (0.000-0.034) ng/mL HDL Cholesterol 38 L (40-60) mg/dL 10/12/17 10/12/17 10/12/17 Range/Units 06:10 06:10 16:43 WBC 11.5 H (3.8-10.6) k/uL RBC 3.19 L (4.30-5.90) m/uL Hgb 9.1 L (13.0-17.5) gm/dL Hct 29.5 L (39.0-53.0) % MCHC 30.7 L (31.0-37.0) g/dL Neutrophils # 10.9 H (1.3-7.7) k/uL Lymphocytes # 0.3 L (1.0-4.8) k/uL BUN 35 H (9-20) mg/dL Glucose 102 H (74-99) mg/dL POC Glucose (mg/dL) 128 H (75-99) mg/dL Calcium 8.3 L (8.4-10.2) mg/dL CK-MB (CK-2) (0.0-2.4) ng/mL Troponin I (0.000-0.034) ng/mL HDL Cholesterol (40-60) mg/dL Microbiology - Last 24 Hours (Table) 10/11/17 13:37 Blood Culture - Preliminary Blood No Growth after 24 hours 10/11/17 15:20 Gram Stain - Preliminary Foot - Left Wound Culture - Preliminary Strep agalactiae - (group b) 10/11/17 15:20 Urine Culture - Preliminary Urine,Catheterized Microbiology 10/11/17 13:37 Blood Blood Culture - Preliminary No Growth after 24 hours 10/11/17 15:20 Foot - Left Gram Stain - Preliminary 10/11/17 15:20 Foot - Left Wound Culture - Preliminary Strep agalactiae - (group b) 10/11/17 15:20 Urine,Catheterized Urine Culture - Preliminary Assessment and Plan (1) Weakness Current Visit: Yes Status: Acute Code(s): R53.1 - WEAKNESS SNOMED Code(s) : 24883729 (2) Osteomyelitis of ankle or foot Narrative/Plan: 77-year-old male who has a long-standing history of rheumatoid arthritis with significant joint destruction. Presents to Hospital feeling very poorly. Concerns to sepsis related to the left foot ulceration status post a great toe amputation. The patient became profoundly weak and Was Brought by EMS to Hospital. Is Being Followed for the Increased Troponins. The patient has been followed recently the wound healing center and was given antibiotic therapy the potentially was giving him some difficulties, based on prior cultures antibiotic therapy was Zosyn will be utilize here in hospital while cultures are pending. Cardiology has been consulted. Local wound care with the medical body dressing is requested as well as elevation the limb at rest. Fortunately he is not having severe pain. There is evidence of leukocytosis likely and the basis of the acute illness and possibly infection related to that ulceration to the amputation site of the foot. Most recent wound culture has group B strep for which Zosyn will be adequate recent other cultures also show anaerobic gram-negative bacilli for which Zosyn will also be helpful . Cultures will determine what the most appropriate course of antibiotic therapy will be at the time of discharge. It's unclear if the patient will be well enough to go back to his home environment at discharge being and his level of weakness. Current Visit: No Status: Acute Code(s): M86.9 - OSTEOMYELITIS, UNSPECIFIED SNOMED Code(s): 32933627 (3) Rheumatoid arthritis involving multiple joints Current Visit: Yes Status: Acute Code(s): M06.9 - RHEUMATOID ARTHRITIS, UNSPECIFIED SNOMED Code(s): 727706505
[2017-10-12] MEDS: WARFARIN 1.5 MG TAB PO SCH (20:29)
[2017-10-12] MEDS: ATORVASTATIN 40 MG TAB PO SCH (20:29)
[2017-10-12] MEDS: CYCLOBENZAPRINE 5 MG TAB PO SCH (20:30)
[2017-10-12 21:04] LABS: Glucose,Whole Blood 114 mg/dL (75-99)
[2017-10-13 06:32] LABS: Glucose,Whole Blood 98 mg/dL (75-99)
[2017-10-13 06:34] LABS: ALT 18 U/L (21-72); AST 25 U/L (17-59); Albumin 2.5 g/dL (3.5-5.0); Alkaline Phosphatase 62 U/L (38-126); Anion Gap 6 mmol/L; Blood Urea Nitrogen 29 mg/dL (9-20); Calcium 8.4 mg/dL (8.4-10.2); Carbon Dioxide 29 mmol/L (22-30); Chloride 107 mmol/L (98-107); Glucose 112 mg/dL (74-99); INR 3.1 (<1.2); Potassium 3.7 mmol/L (3.5-5.1); Sodium 142 mmol/L (137-145); Total Bilirubin 0.6 mg/dL (0.2-1.3); Total Protein 5.1 g/dL (6.3-8.2)
[2017-10-13 06:35] LABS: Prothrombin Time 28.2 sec (9.0-12.0)
[2017-10-13 06:37] LABS: Basophils % (A) 0 %; Eosinophils % (A) 0 %; HCT 29.2 % (39.0-53.0); HGB 9.5 gm/dL (13.0-17.5); Lymphocytes # (A) 0.4 k/uL (1.0-4.8); Lymphocytes % (A) 4 %; MCH 29.2 pg (25.0-35.0); MCHC 32.5 g/dL (31.0-37.0); MCV 90.1 fL (80.0-100.0); Mean Platelet Volume 7.3; Monocytes # (A) 0.5 k/uL (0-1.0); Monocytes % (A) 5 %; Neutrophils # (A) 8.5 k/uL (1.3-7.7); Neutrophils % (A) 89 %; Platelet Count 234 k/uL (150-450); RBC 3.24 m/uL (4.30-5.90); RDW 15.1 % (11.5-15.5); WBC 9.5 k/uL (3.8-10.6)
--- NOTE | 2017-10-13 10:03 | ECHOF ---
Referral Reason:elevated troponins MEASUREMENTS -------- HEIGHT: 162.6 cm WEIGHT: 57.6 kg BP: IVSd: 1.3 cm (0.6 - 1.1) LVIDd: 3.7 cm (3.9 - 5.3) LVPWd: 1.1 cm (0.6 - 1.1) EDV(Teich): 58 ml IVSs: 1.5 cm LVIDs: 2.6 cm LVPWs: 1.4 cm %IVS Thck: 16 % ESV(Teich): 26 ml EF(Teich): 56 % %FS: 28 % SV(Teich): 32 ml LA Diam: 3.6 cm (2.7 - 3.8) RVIDd: 2.6 cm (< 3.3) LALs A4C: 5.6 cm LAAs A4C: 20.1 cm LAESV A-L A4C: 61 ml LAESV MOD A4C: 57 ml LALs A2C: 4.4 cm LAAs A2C: 15.4 cm LAESV A-L A2C: 46 ml LAESV MOD A2C: 44 ml LAESV(A-L): 60 ml LAESV Index (A-L): 37.49 ml/m Ao Diam: 3.6 cm (2.0 - 3.7) LA Diam: 3.1 cm (2.7 - 3.8) AV Cusp: 1.4 cm (1.5 - 2.6) EPSS: 0.3 cm MV E Michele: 0.63 m/s MV DecT: 280 ms MV Dec [place]: 2.3 m/s MV A Michele: 0.99 m/s MV E/A Ratio: 0.64 MV PHT: 81 ms LVOT Vmax: 1.07 m/s LVOT maxP.54 mmHg LVOT Vmax: 1.16 m/s LVOT Vmean: 0.70 m/s LVOT maxP.39 mmHg LVOT meanP.51 mmHg LVOT Env.Ti: 268 ms LVOT VTI: 18.9 cm AV Vmax: 2.75 m/s AV maxP.35 mmHg AV Vmax: 2.78 m/s AV Vmean: 2.21 m/s AV maxP.99 mmHg AV meanP.83 mmHg AV Env.Ti: 240 ms AV VTI: 53.0 cm TR Vmax: 2.57 m/s TR maxP.50 mmHg RAP: 5.00 mmHg RVSP: 31.50 mmHg MV EF SLOPE: 46.57 mm/s (70 - 150) MV EXCURSION: 14.10 mm (> 18.000) FINDINGS -------- Sinus rhythm. This was a technically adequate study. The left ventricular size is normal. There is mild concentric left ventricular hypertrophy. Overa ll left ventricular systolic function is normal with, an EF between 55 - 60 %. The right ventricle is normal in size. The left atrial size is normal. LA is moderately dilated 34-39 ml/m2 The right atrial size is normal. There is moderate aortic valve sclerosis. There is moderate aortic stenosis present. Peak/mean gr adient across the Aortic Valve is 30.99mmHg / 20.83mmHg. AOV is possible Bicuspid. Mild mitral annular calcification present. Mild mitral regurgitation is present. Mild tricuspid regurgitation present. There is no evidence of pulmonary hypertension. The right v entricular systolic pressure, as measured by Doppler, is 31.50mmHg. There is no pulmonic regurgitation present. The aortic root size is normal. There is no pericardial effusion. CONCLUSIONS -------- 1. The left ventricular size is normal. 2. There is mild concentric left ventricular hypertrophy. 3. Overall left ventricular systolic function is normal with, an EF between 55 - 60 %. 4. The left atrial size is normal. 5. LA is moderately dilated 34-39 ml/m2 6. There is moderate aortic valve sclerosis. 7. There is moderate aortic stenosis present. 8. Peak/mean gradient across the Aortic Valve is 30.99mmHg / 20.83mmHg. 9. AOV is possible Bicuspid. 10. Mild mitral annular calcification present. 11. Mild mitral regurgitation is present. 12. Mild tricuspid regurgitation present. 13. There is no evidence of pulmonary hypertension. 14. The right ventricular systolic pressure, as measured by Doppler, is 31.50mmHg. 15. There is no pulmonic regurgitation present. 16. The aortic root size is normal. 17. There is no pericardial effusion. GUEST SERVICE HOST: Genesis Shelton RDCS
--- NOTE | 2017-10-13 10:15 | CONS ---
DERECK Arriola is a 77-year-old gentleman who was admitted with chronic disabling and severe rheumatoid arthritis, who presented to the hospital with confusion and weakness. This morning he appears much better and is eager to go home. PHYSICAL EXAMINATION: On exam, he is comfortable at rest. Vital signs are stable. O2 saturation is 99% on room air. There is no jugular venous distention. Chest exam reveals diminished air entry at the bases. Heart exam reveals first and second heart sounds. Ejection systolic murmur in the aortic area. Abdomen is soft. Exam of extremities did not reveal any edema. Peripheral pulses are felt. INR is 3.1, hemoglobin is 9.5, and echo shows normal LV function with moderate aortic stenosis. ASSESSMENT: 1. Elevated troponin probably related to the underlying sickness. 2. Chronic atrial fibrillation. 3. Aortic stenosis. PLAN: The patient is much better this morning. Whatever the infection he had seems to be resolving. He is stable to be discharged home and arrange outpatient followup with Dr. Chi Stock. GEN / RIDGE: [id number] /
[2017-10-13] MEDS: ASPIRIN 325 MG TAB PO SCH (10:27)
[2017-10-13] MEDS: HYDROXYCHLOROQUINE SULFATE 200 MG TAB PO SCH (10:27)
[2017-10-13] MEDS: GABAPENTIN 300 MG CAP PO SCH ×3 (10:27→21:26)
[2017-10-13] MEDS: TAMSULOSIN 0.4 MG CAP.ER.24H PO SCH (10:28)
[2017-10-13] MEDS: HYDROCORTISONE SUCCINATE 100 MG/2 ML VIAL IV SCH (10:28)
[2017-10-13] MEDS: DIGOXIN 125 MCG TAB PO SCH (10:28)
[2017-10-13] MEDS: PIPERACILLIN-TAZOBACTAM 3.375 GM in DEXTROSE/WATER 1 50ML.BAG IVPB SCH ×3 (10:40→23:16)
[2017-10-13] MEDS: CHOLECALCIFEROL 1,000 UNIT TAB PO SCH (11:59)
[2017-10-13] MEDS: FERROUS SULFATE 325 MG TAB PO SCH (11:59)
[2017-10-13] MEDS: LACTOBACILLUS ACIDOPH & BULGAR 1 EACH PACKET PO SCH (12:00)
[2017-10-13 12:11] LABS: Glucose,Whole Blood 80 mg/dL (75-99)
--- NOTE | 2017-10-13 14:47 | P.PN ---
Subjective Progress Note Date: 10/13/17 77 years old male patient of Dr. 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 Patient recently underwent debridement of his left foot with Dr. Vigil on 10/09 and was started on erythromycin. Patient was unable to fill in erythromycin and therefore clindamycin was initiated. Patient took 1 or 2 doses of clindamycin and the symptoms are related to it. On evaluation today at bedside patient is feeling back to his baseline with improvement in his weakness. Patient was initiated on stress dose of hydrocortisone since yesterday. Blood pressures improved from systolic of 88/52 to 93/52. Vitals otherwise are stable with no fever episodes. Labs WBC of 11.5 that improved from 18 since yesterday. Hemoglobin 9.1, glucose 102, increase troponin .12 --.145 ---.102. Patient denies any chest pain or breathing difficulty or cough. Infectious disease and cardiology consulted for evaluation of the ulcer and increased troponin. Patient does not appear to be in sepsis. 10/13 patient examined bedside. Denies any symptoms of shortness of breath, chest pains sweating, nausea or vomiting. Continue Zosyn for wound infection. Wound culture positive for strep agalactiae today. PTOT consult pending. Antibiotics will be decided based on final culture results Objective - Vital Signs Vital signs: Vital Signs Temp 97.2 F L 10/13/17 12:00 Pulse 64 10/13/17 12:00 Resp 18 10/13/17 12:00 BP 121/65 10/13/17 12:00 Pulse Ox 98 10/13/17 12:00 Intake & Output 10/12/17 10/13/17 10/13/17 18:59 06:59 18:59 Intake Total 360 370 240 Output Total 550 400 125 Balance -190 -30 115 Weight 59.2 kg Intake: Intake, IV Titration 50 Amount Piperacillin-Tazobactam 3 50 .375 gm In Dextrose/Water 1 50ml.bag @ 12.5 mls/hr IVPB Q8HR [facility] Rx#: [id number] Oral 360 320 240 Output: Urine 550 400 125 Other: Voiding Method Bedside Commode Bedside Commode Urinal Urinal # Voids 2 1 # Bowel Movements 1 - Exam Constitutional General appearance: cooperative, no acute distress, thin-appearing very pleasant - EENT Eyes: anicteric sclerae, PERRLA, normal appearance ENT: hearing grossly normal - Neck Neck: no lymphadenopathy, normal ROM, no other, no rigidity, no stridor, no thyromegaly - Respiratory Respiratory: bilateral: CTA, negative: diminished, dullness, rales, rhonchi - Cardiovascular Rhythm: Irregularly irregular Heart sounds: normal: S1, S2 Abnormal Heart Sounds: 3+ systolic murmur, no diastolic murmur, no rub, no S3 Gallop, no S4 Gallop, no click, no other - Gastrointestinal General gastrointestinal: normal bowel sounds, soft - Integumentary Integumentary: 5 X 5 cm ulcer with clean borders and purulent drainage, granulation tissue seen at the base, visible tendon of the feet, with edema of the feet. - Neurologic Neurologic: CNII-XII intact - Musculoskeletal Musculoskeletal: strength equal bilaterally, severe joint deformation from rheumatoid arthritis - Labs CBC & Chem 7: 10/13/17 05:56 10/13/17 05:56 Labs: Abnormal Lab Results - Last 24 Hours (Table) 10/12/17 10/12/17 10/13/17 Range/Units 16:43 21:01 05:56 RBC 3.24 L (4.30-5.90) m/uL Hgb 9.5 L (13.0-17.5) gm/dL Hct 29.2 L (39.0-53.0) % Neutrophils # 8.5 H (1.3-7.7) k/uL Lymphocytes # 0.4 L (1.0-4.8) k/uL PT (9.0-12.0) sec INR (<1.2) BUN (9-20) mg/dL Glucose (74-99) mg/dL POC Glucose (mg/dL) 128 H 114 H (75-99) mg/dL ALT (21-72) U/L Total Protein (6.3-8.2) g/dL Albumin (3.5-5.0) g/dL 10/13/17 10/13/17 Range/Units 05:56 05:56 RBC (4.30-5.90) m/uL Hgb (13.0-17.5) gm/dL Hct (39.0-53.0) % Neutrophils # (1.3-7.7) k/uL Lymphocytes # (1.0-4.8) k/uL PT 28.2 H (9.0-12.0) sec INR 3.1 H (<1.2) BUN 29 H (9-20) mg/dL Glucose 112 H (74-99) mg/dL POC Glucose (mg/dL) (75-99) mg/dL ALT 18 L (21-72) U/L Total Protein 5.1 L (6.3-8.2) g/dL Albumin 2.5 L (3.5-5.0) g/dL Microbiology - Last 24 Hours (Table) 10/11/17 15:20 Gram Stain - Final Foot - Left Wound Culture - Final Strep agalactiae - (group b) 10/11/17 15:20 Urine Culture - Final Urine,Catheterized 10/11/17 13:37 Blood Culture - Preliminary Blood No Growth after 24 hours Assessment and Plan Plan: #1 increased weakness secondary to underlying adrenal insufficiency, from chronic steroids, underlying dehydration , infection. We will get PT to evaluate the patient. Currently patient's symptoms have improved since yesterday, will switch from hydrocortisone to prednisone #2 left foot ulcer with purulent drainage secondary to osteomylitis ,sepsis ruled out. Continue Zosyn 3.37 mg every 8 hours. . prednisone Debridement has been done already on 10/[address] Vigil. Wound care follow-up with Dr. Vigil #3 rheumatoid arthritis continue hydroxychloroquine 200 mg daily. Neurontin 300 3 times a day #4 persistent atrial fibrillation continue digoxin 125 g pain. Continue Coumadin and her between 2.5-3 #5 acute troponinemia likely secondary to systemic illness. Cardiology ruled out cardiac etiology of the increase troponin. Patient will follow-up with Dr. Stock as outpatient 6 chronic steroid use. Patient is on 10 mg of prednisone for rheumatoid arthritis. We'll stress dose with hydrocortisone 50 every 12 today. 7 BPH continue Flomax 0.4 mg daily 8 history of iron deficiency anemia continue ferrous sulfate 325 milligrams by mouth daily 9 DVT prophylaxis continue Coumadin 10 disposition - likely tomorrow
[2017-10-13] MEDS: Acetaminophen-Codeine 300-30mg TAB PO PRN (16:15)
[2017-10-13 17:30] LABS: Glucose,Whole Blood 117 mg/dL (75-99)
[2017-10-13 20:19] LABS: Glucose,Whole Blood 142 mg/dL (75-99)
[2017-10-13] MEDS: ATORVASTATIN 40 MG TAB PO SCH (21:26)
[2017-10-13] MEDS: CYCLOBENZAPRINE 5 MG TAB PO SCH (21:26)
[2017-10-13] MEDS: WARFARIN 1.5 MG TAB PO SCH (21:26)
[2017-10-14 05:49] LABS: Glucose,Whole Blood 87 mg/dL (75-99)
[2017-10-14 06:51] LABS: Basophils % (A) 0 %; Eosinophils # (A) 0.2 k/uL (0-0.7); Eosinophils % (A) 3 %; Lymphocytes # (A) 0.7 k/uL (1.0-4.8); Lymphocytes % (A) 9 %; MCH 28.9 pg (25.0-35.0); MCV 90.2 fL (80.0-100.0); Mean Platelet Volume 7.3; Monocytes # (A) 0.4 k/uL (0-1.0); Monocytes % (A) 6 %; Neutrophils # (A) 5.7 k/uL (1.3-7.7); Neutrophils % (A) 80 %; Platelet Count 262 k/uL (150-450); RDW 15.1 % (11.5-15.5); WBC 7.2 k/uL (3.8-10.6)
[2017-10-14 06:54] LABS: INR 3.2 (<1.2); Prothrombin Time 28.7 sec (9.0-12.0)
[2017-10-14 07:03] LABS: ALT 26 U/L (21-72); AST 22 U/L (17-59); Albumin 2.4 g/dL (3.5-5.0); Alkaline Phosphatase 56 U/L (38-126); Anion Gap 7 mmol/L; Blood Urea Nitrogen 23 mg/dL (9-20); Calcium 8.4 mg/dL (8.4-10.2); Carbon Dioxide 30 mmol/L (22-30); Chloride 108 mmol/L (98-107); Glucose 77 mg/dL (74-99); Potassium 3.6 mmol/L (3.5-5.1); Sodium 145 mmol/L (137-145); Total Bilirubin 0.6 mg/dL (0.2-1.3)
--- NOTE | 2017-10-14 07:10 | XR ---
EXAMINATION TYPE: XR chest 2V DATE OF EXAM: 10/14/2017 COMPARISON: Prior chest x-ray April 23, 2017. HISTORY: Weakness. TECHNIQUE: Frontal and lateral views of the chest are obtained. FINDINGS: The osseous structures remain demineralized. There is subluxation left shoulder with of ch ronic deformity redemonstrated. There are multiple old right lateral rib fractures redemonstrated. Zhu rgical change right shoulder level is again seen. Underlying scoliosis is present. There is left lateral and basilar pleural calcification redemonstrated. There is left-sided volume lo ss with mediastinal shift. There is chronic parenchymal change without new suspicious focal airspace opacity or pneumothorax seen bilaterally. Cardiac silhouette size is within normal limits with athero sclerotic thoracic aorta. IMPRESSION: Chronic changes without new acute pulmonary process
--- NOTE | 2017-10-14 07:12 | XR ---
EXAMINATION TYPE: XR foot complete LT DATE OF EXAM: 10/14/2017 CLINICAL HISTORY: Nonhealing wound to left foot TECHNIQUE: Frontal, lateral, and oblique images of the left foot are obtained. COMPARISON: None FINDINGS: There is amputation defect at base of first metatarsal. There is oval lucency consistent wi th ulcer or nonhealing wound. [place] osseous structures are demineralized. Osteotomy at base of second and third proximal phalanx i s present. There is been prior osteotomy proximal and distal aspects of fifth metatarsal. Flexion in distal second and fourth toes is present. Marked joint space loss third metatarsophalangea l joint is seen. There is vascular calcification with moderate soft tissue swelling. There is no suspicious periosteal reaction or cortical destruction with particular attention at the area of clinical concern. IMPRESSION: There is no convincing radiographic evidence for acute osteomyelitis at area of clinical concern first toe ulcer.
[2017-10-14] MEDS ORDERED: predniSONE 20 MG TAB PO SCH (09:00)
[2017-10-14] MEDS: PIPERACILLIN-TAZOBACTAM 3.375 GM in DEXTROSE/WATER 1 50ML.BAG IVPB SCH (09:38)
[2017-10-14] MEDS: FERROUS SULFATE 325 MG TAB PO SCH (09:40)
[2017-10-14] MEDS: TAMSULOSIN 0.4 MG CAP.ER.24H PO SCH (09:40)
[2017-10-14] MEDS: GABAPENTIN 300 MG CAP PO SCH (09:40)
[2017-10-14] MEDS: ASPIRIN 325 MG TAB PO SCH (09:40)
[2017-10-14] MEDS: HYDROXYCHLOROQUINE SULFATE 200 MG TAB PO SCH (09:41)
[2017-10-14] MEDS: LACTOBACILLUS ACIDOPH & BULGAR 1 EACH PACKET PO SCH (09:41)
[2017-10-14] MEDS: CHOLECALCIFEROL 1,000 UNIT TAB PO SCH (09:41)
[2017-10-14] MEDS: DIGOXIN 125 MCG TAB PO SCH (09:41)
[2017-10-14 11:04] VITALS: RESP 16; TEMP 97.1
[2017-10-14 11:49] LABS: Glucose,Whole Blood 74 mg/dL (75-99)
[2017-10-14 11:52] VITALS: BP 122/63; PULSE 66
--- NOTE | 2017-10-14 13:16 | P.PN ---
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 Cardiology consultation was requested because of abnormal troponins. Patient denied having any chest discomfort. His echocardiogram with Doppler study was performed which revealed a normal left ventricular systolic function. Patient was seen and examined this morning, feels well, alert and oriented 3. Blood pressure 122/60 with a heart rate in the 60s. Blood cell count 7.2, hemoglobin 9.0, INR 3.2, potassium 3.6, BUN 23, creatinine 0.7. Objective - Vital Signs Vital signs: Vital Signs Temp 97.1 F L 10/14/17 11:51 Pulse 66 10/14/17 11:51 Resp 16 10/14/17 11:51 BP 122/63 10/14/17 11:51 Pulse Ox 97 10/14/17 11:51 Intake & Output 10/13/17 10/14/17 10/14/17 18:59 06:59 18:59 Intake Total 240 620 460 Output Total 325 350 450 Balance -85 270 10 Weight 47.6 kg Intake: IV 260 100 .9 160 Piperacillin-Tazobactam 3 100 100 .375 gm In Dextrose/Water 1 50ml.bag @ 12.5 mls/hr IVPB Q8HR [facility] Rx#: [id number] Oral 240 360 360 Output: Urine 325 350 450 Other: Voiding Method Bedside Commode Bedside Commode Urinal Urinal - Exam PHYSICAL EXAMINATION: HEENT: Head is atraumatic, normocephalic. Pupils equal, round. Neck is supple. There is no elevated jugular venous pressure. HEART EXAMINATION: Heart S1 and S2 irregularly irregular systolic murmur is heard CHEST EXAMINATION: Lungs are clear to auscultation and precussion. No chest wall tenderness is noted on palpation or with deep breathing. ABDOMEN: Soft, nontender. Bowel sounds are heard. No organomegaly noted. EXTREMITIES: 2+ peripheral pulses with evidence of peripheral edema and no calf tenderness noted. Patient does have ulcerated area to the bilateral feet. Patient also has significant bluish discoloration of the skin from years of prednisone use. Significant deformation from rheumatoid arthritis NEUROLOGIC patient is awake, alert and oriented -3. . - Labs CBC & Chem 7: 10/14/17 06:21 10/14/17 06:21 Labs: Abnormal Lab Results - Last 24 Hours (Table) 10/13/17 10/13/17 10/14/17 Range/Units 16:59 20:18 06:21 RBC 3.10 L (4.30-5.90) m/uL Hgb 9.0 L (13.0-17.5) gm/dL Hct 28.0 L (39.0-53.0) % Lymphocytes # 0.7 L (1.0-4.8) k/uL PT (9.0-12.0) sec INR (<1.2) Chloride (98-107) mmol/L BUN (9-20) mg/dL POC Glucose (mg/dL) 117 H 142 H (75-99) mg/dL Total Protein (6.3-8.2) g/dL Albumin (3.5-5.0) g/dL 10/14/17 10/14/17 10/14/17 Range/Units 06:21 06:21 11:47 RBC (4.30-5.90) m/uL Hgb (13.0-17.5) gm/dL Hct (39.0-53.0) % Lymphocytes # (1.0-4.8) k/uL PT 28.7 H (9.0-12.0) sec INR 3.2 H (<1.2) Chloride 108 H (98-107) mmol/L BUN 23 H (9-20) mg/dL POC Glucose (mg/dL) 74 L (75-99) mg/dL Total Protein 5.0 L (6.3-8.2) g/dL Albumin 2.4 L (3.5-5.0) g/dL Microbiology - Last 24 Hours (Table) 10/11/17 13:37 Blood Culture - Preliminary Blood No Growth after 48 hours 10/11/17 15:20 Gram Stain - Final Foot - Left Wound Culture - Final Strep agalactiae - (group b) Assessment and Plan Plan: Assessment and plan #1 increased weakness #2 left foot ulceration with purulent drainage secondary to osteomyelitis #3 severe rheumatoid arthritis #4 chronic persistent atrial fibrillation on Coumadin for anticoagulation #5 troponin abnormality, likely secondary to systemic illness, supply and demand mismatch, echocardiogram with Doppler study revealed a normal left ventricular systolic function Plan From cardiology's perspective, we'll recommend to continue the patient on his current medications. We will follow him along with you now on an as-needed basis only, please hesitate to call if you've any questions at all. DNP note has been reviewed, I agree with a documented findings and plan of care. Patient was seen and examined.
--- NOTE | 2017-10-14 14:09 | P.DS ---
Providers Date of admission: 10/11/17 15:27 Expected date of discharge: 10/14/17 Attending physician: Pete Joseph Consults: 10/11/17 15:27 Consult Physician Stat Consulting Provider: Pete Snow Consult Reason/Comments: Suspecting sepsis, chronic wound on the left foot, immune compromised? Do you want consulting provider notified?: Yes Consult Physician Urgent Consulting Provider: Margie Putnam Consult Reason/Comments: Elevated troponin Do you want consulting provider notified?: Yes Primary care physician: [facility] Course: 77 years old male patient of Dr. 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 Patient recently underwent debridement of his left foot with Dr. Vigil on 10/09 and was started on erythromycin. Patient was unable to fill in erythromycin and therefore clindamycin was initiated. Patient took 1 or 2 doses of clindamycin and the symptoms are related to it. On evaluation today at bedside patient is feeling back to his baseline with improvement in his weakness. Patient was initiated on stress dose of hydrocortisone since yesterday. Blood pressures improved from systolic of 88/52 to 93/52. Vitals otherwise are stable with no fever episodes. Labs WBC of 11.5 that improved from 18 since yesterday. Hemoglobin 9.1, glucose 102, increase troponin .12 --.145 ---.102. Patient denies any chest pain or breathing difficulty or cough. Infectious disease and cardiology consulted for evaluation of the ulcer and increased troponin. Patient does not appear to be in sepsis. 10/13 patient examined bedside. Denies any symptoms of shortness of breath, chest pains sweating, nausea or vomiting. Continue Zosyn for wound infection. Wound culture positive for strep agalactiae today. PTOT consult pending. Antibiotics will be decided based on final culture results 10/14 The patient was seen and examined at the bedside today. Final wound culture positive for strep agalactiae, blood cultures show no growth after 48 hours, final urine culture shows no growth. He was switched to Augmentin. Cardiology has been consulted for elevated troponins, per cardiology, elevation thought to be due to underlying illness, supply and demand mismatch. He is not having any chest pain or shortness of breath. Echocardiogram showed ejection fraction between 55-60% and moderate aortic stenosis. He will be discharged home. Discharge diagnoses #1 increased weakness secondary to underlying adrenal insufficiency, from chronic steroids, underlying dehydration , infection. #2 left foot ulcer with purulent drainage secondary to osteomylitis #3 rheumatoid arthritis #4 persistent atrial fibrillation #5 acute troponinemia secondary to systemic illness. 6 chronic steroid use. 7 BPH 8 history of iron deficiency anemia The above impression and plan of care have been discussed and directed by signing physician. The signing physician has seen and evaluated the patient. Catina Ricci nurse practitioner acting as scribe for signing physician. Patient Condition at Discharge: Good Plan - Discharge Summary Discharge Rx Participant: No New Discharge Prescriptions: New Amoxic-Pot Clav 875-125Mg [Augmentin 875-125] 1 tab PO Q12HR #28 tablet Continue fentaNYL 50MCG/HR PATCH [Duragesic 50MCG/HR] 50 mcg TRANSDERM Q72H Aspirin 81 mg PO DAILY Hydroxychloroquine Sulfate [Plaquenil] 200 mg PO DAILY Tamsulosin [Flomax] 0.4 mg PO DAILY Gabapentin [Neurontin] 300 mg PO TID Acetaminophen-Codeine 300-30mg [Tylenol w/codeine #3] 1 tab PO Q6H PRN PRN Reason: Pain L.acidoph,Paracasei, B.lactis [Probiotic] 1 cap PO DAILY Digoxin [Lanoxin] 125 mcg PO QAM Ferrous Sulfate [Iron (65 MG Elemental)] 325 mg PO DAILY Warfarin [Coumadin] 1.5 mg PO HS Cholecalciferol (Vitamin D3) [Vitamin D3] 2,000 unit PO DAILY Cyclobenzaprine [Flexeril] 5 mg PO HS Changed predniSONE 20 mg PO QAM #30 Discharge Medication List Acetaminophen-Codeine 300-30mg [Tylenol w/codeine #3] 1 tab PO Q6H PRN 07/18/16 [History] Aspirin 81 mg PO DAILY 07/18/16 [History] Gabapentin [Neurontin] 300 mg PO TID 07/18/16 [History] Hydroxychloroquine Sulfate [Plaquenil] 200 mg PO DAILY 07/18/16 [History] L.acidoph,Paracasei, B.lactis [Probiotic] 1 cap PO DAILY 07/18/16 [History] Tamsulosin [Flomax] 0.4 mg PO DAILY 07/18/16 [History] fentaNYL 50MCG/HR PATCH [Duragesic 50MCG/HR] 50 mcg TRANSDERM Q72H 07/18/16 [ History] Digoxin [Lanoxin] 125 mcg PO QAM 01/10/17 [History] Ferrous Sulfate [Iron (65 MG Elemental)] 325 mg PO DAILY 08/21/17 [History] Cholecalciferol (Vitamin D3) [Vitamin D3] 2,000 unit PO DAILY 10/11/17 [History] Cyclobenzaprine [Flexeril] 5 mg PO HS 10/11/17 [History] Warfarin [Coumadin] 1.5 mg PO HS 10/11/17 [History] Amoxic-Pot Clav 875-125Mg [Augmentin 875-125] 1 tab PO Q12HR #28 tablet [Rx] predniSONE 20 mg PO QAM #30 10/14/17 [Rx] Follow up Appointment(s)/Referral(s): Pete Joseph MD [Primary Care Provider] - 1 Week Hadley Vigil DO [Doctor of Osteopathic Medicine] - 10/16/17 10:00 am (appointment at the wound care centre [phone]) Patient Instructions/Handouts: MRSA (Methicillin-Resistant Staphylococcus Aureus) (DC) Discharge Disposition: HOME SELF-CARE
== END 2017-10-14 13:40 | disposition home health service (06) | DRG 644 ==
LOC: EC 12:52 → 6SEL 15:27
PROVIDERS: ADMIT Internal Medicine Geriatric Medicine; ATTEND Internal Medicine Geriatric Medicine
DX: E27.40 Unspecified adrenocortical insufficiency (principal); I48.1 Persistent atrial fibrillation; L97.529 Non-pressure chronic ulcer of other part of left foot with unspecified severity; I48.2 Chronic atrial fibrillation; M86.9 Osteomyelitis, unspecified; E86.0 Dehydration; I35.0 Nonrheumatic aortic (valve) stenosis; D50.9 Iron deficiency anemia, unspecified; L08.9 Local infection of the skin and subcutaneous tissue, unspecified; J61 Pneumoconiosis due to asbestos and other mineral fibers; K44.9 Diaphragmatic hernia without obstruction or gangrene; N40.0 Benign prostatic hyperplasia without lower urinary tract symptoms; M19.90 Unspecified osteoarthritis, unspecified site; R74.8 Abnormal levels of other serum enzymes; M06.9 Rheumatoid arthritis, unspecified; R51 Headache; T38.0X5A Adverse effect of glucocorticoids and synthetic analogues, initial encounter; Z79.01 Long term (current) use of anticoagulants; Z79.52 Long term (current) use of systemic steroids; Z79.82 Long term (current) use of aspirin; Z79.899 Other long term (current) drug therapy; Z89.412 Acquired absence of left great toe; Z96.619 Presence of unspecified artificial shoulder joint; Z98.1 Arthrodesis status; Z87.891 Personal history of nicotine dependence; Z87.442 Personal history of urinary calculi; Z87.11 Personal history of peptic ulcer disease; Z86.718 Personal history of other venous thrombosis and embolism; Z86.14 Personal history of Methicillin resistant Staphylococcus aureus infection; Z88.5 Allergy status to narcotic agent; Z88.8 Allergy status to other drugs, medicaments and biological substances; Y92.009 Unspecified place in unspecified non-institutional (private) residence as the place of occurrence of the external cause
CPT/HCPCS: 36415; 70450; 71046; 80048; 80053; 80061; 81001; 82550; 82553; 83605; 84484; 85025; 85610; 85730; 87040; 87070; 87086; 87205; 93005; 93306; 96361; 96365; 96375; 99285

== ENCOUNTER → 2017-12-27 | Outpatient (CLI) | payer MEDICARE ==
[2017-12-27 10:10] LABS: HCT 38.6 % (39.0-53.0); HGB 12.5 gm/dL (13.0-17.5); MCH 31.6 pg (25.0-35.0); MCHC 32.3 g/dL (31.0-37.0); Mean Platelet Volume 6.6; Platelet Count 258 k/uL (150-450); RBC 3.95 m/uL (4.30-5.90); RDW 14.7 % (11.5-15.5); WBC 10.8 k/uL (3.8-10.6)
[2017-12-27 10:15] LABS: INR 2.2 (<1.2); Prothrombin Time 19.5 sec (9.0-12.0)
[2017-12-27 10:19] LABS: ALT 29 U/L (21-72); AST 20 U/L (17-59); Albumin 3.6 g/dL (3.5-5.0); Alkaline Phosphatase 64 U/L (38-126); Anion Gap 11 mmol/L; Blood Urea Nitrogen 31 mg/dL (9-20); Calcium 9.6 mg/dL (8.4-10.2); Carbon Dioxide 32 mmol/L (22-30); Chloride 103 mmol/L (98-107); Cholesterol 156 mg/dL (<200); Glucose 81 mg/dL (74-99); HDL Cholesterol 46 mg/dL (40-60); LDL Cholesterol,Calculated 71 mg/dL (0-99); Sodium 146 mmol/L (137-145); Total Bilirubin 0.6 mg/dL (0.2-1.3); Total Protein 6.3 g/dL (6.3-8.2); Triglycerides 193 mg/dL (<150)
[2017-12-27 10:36] LABS: T4, Free (Free Thyroxine) 1.01 ng/dL (0.78-2.19)
[2017-12-27 18:42] LABS: Hemoglobin A1C 5.3 % (4.0-6.0)
== END | disposition home or self-care (01) ==
LOC: LABWHC1 09:43
PROVIDERS: ATTEND Physician Assistant
DX: Z00.01 Encounter for general adult medical examination with abnormal findings (principal); M06.9 Rheumatoid arthritis, unspecified; I10 Essential (primary) hypertension; E11.9 Type 2 diabetes mellitus without complications; I48.0 Paroxysmal atrial fibrillation
CPT/HCPCS: 36415; 80053; 80061; 83036; 84439; 84443; 85027; 85610

== ENCOUNTER 2018-07-05 12:13 | Emergency (ER) | payer MEDICARE ==
[2018-07-05 12:20] VITALS: BP 101/70; PULSE 98; RESP 16; TEMP 98.3
--- NOTE | 2018-07-05 13:02 | ED ---
General Adult HPI - General Chief complaint: Skin/Abscess/Foreign Body Stated complaint: wound on leg Time Seen by Provider: 07/05/18 12:23 Source: patient, family, RN notes reviewed Mode of arrival: ambulatory Limitations: no limitations - History of Present Illness Initial comments: Patient is a pleasant 78-year-old male presenting to the emergency department with concern for possible skin infection left leg. Area was noticed yesterday and worsened today. No drainage. Patient does have history of previous MRSA. Patient does have history of prolonged previous foot ulcer. No fevers. No other area of involvement. Coumadin level was checked this week at 2.1. - Related Data Home Medications Medication Instructions Recorded Confirmed Acetaminophen-Codeine 300-30mg 1 tab PO Q6H PRN 07/18/16 01/01/18 [Tylenol w/codeine #3] Aspirin 81 mg PO DAILY 07/18/16 01/01/18 Gabapentin [Neurontin] 300 mg PO TID 07/18/16 01/01/18 Hydroxychloroquine Sulfate 200 mg PO DAILY 07/18/16 01/01/18 [Plaquenil] L.acidoph,Paracasei, B.lactis 1 cap PO DAILY 07/18/16 01/01/18 [Probiotic] Tamsulosin [Flomax] 0.4 mg PO DAILY 07/18/16 01/01/18 fentaNYL 50MCG/HR PATCH [Duragesic 50 mcg TRANSDERM Q72H 07/18/16 01/01/18 50MCG/HR] Digoxin [Lanoxin] 125 mcg PO QAM 01/10/17 01/01/18 Ferrous Sulfate [Iron (65 MG 325 mg PO DAILY 08/21/17 01/01/18 Elemental)] Cholecalciferol (Vitamin D3) 2,000 unit PO DAILY 10/11/17 01/01/18 [Vitamin D3] Cyclobenzaprine [Flexeril] 5 mg PO HS 10/11/17 01/01/18 Warfarin [Coumadin] 1.5 mg PO HS 10/11/17 01/01/18 Previous Rx's Medication Instructions Recorded predniSONE 20 mg PO QAM #30 10/14/17 Sulfamethox-Tmp 800-160Mg [Bactrim 2 each PO Q12HR #40 tab 07/05/18 DS 800-160 mg] Allergies Allergy/AdvReac Type Severity Reaction Status Date / Time meperidine Allergy Nausea & Verified 07/05/18 12:20 Vomiting morphine AdvReac Confusion Verified 07/05/18 12:20 Review of Systems ROS Statement: Those systems with pertinent positive or pertinent negative responses have been documented in the HPI. ROS Other: All systems not noted in ROS Statement are negative. Constitutional: Denies: fever, chills Eyes: Denies: eye pain ENT: Denies: ear pain Respiratory: Denies: cough Cardiovascular: Denies: chest pain Endocrine: Denies: fatigue Gastrointestinal: Denies: abdominal pain Genitourinary: Denies: dysuria Musculoskeletal: Denies: back pain Skin: Reports: as per HPI Neurological: Denies: headache Past Medical History Past Medical History: Atrial Fibrillation, Deep Vein Thrombosis (DVT), Osteoarthritis (OA), Rheumatoid Arthritis (RA), Skin Disorder Additional Past Medical History / Comment(s): small hiatal hernia, asbestosis, wound outside left foot, hx colitis, wheelchair-non ambulatory from severe RA- "difficulty bending wrists or striaghtening arms, hx fx back,, "low BP", hx DVT rt [id number], kidney stones, stomach ulcer. History of Any Multi-Drug Resistant Organisms: MRSA Date of last positivie culture/infection: lt knee MDRO Source:: lt. leg Past Surgical History: Appendectomy, Back Surgery, Heart Catheterization, Joint Replacement, Tonsillectomy Additional Past Surgical History / Comment(s): alfredito hip replacments &alfredito knee replacments,,metatarsal heads removed,fingers,shoulder joint replaced,spinal fusion C1&2,colectomy 08/28/16 debridement left lateral foot, lt great toe amp thru metatarsal, upper endocodpy. picc line -since removed,lithotripsy x2 Past Anesthesia/Blood Transfusion Reactions: Postoperative Nausea & Vomiting ( PONV) Past Psychological History: No Psychological Hx Reported Smoking Status: Former smoker - Past Family History Mother Family Medical History: AICD/Pacemaker, Cancer Additional Family Medical History / Comment(s): Breast, pacemaker Father Family Medical History: AICD/Pacemaker Additional Family Medical History / Comment(s): pacemaker General Exam Limitations: no limitations General appearance: alert, in no apparent distress Head exam: Present: atraumatic Eye exam: Present: normal appearance Respiratory exam: Present: normal lung sounds bilaterally Cardiovascular Exam: Present: regular rate, normal rhythm Extremities exam: Present: other (Chronic appearing joint deformities) Neurological exam: Present: alert Psychiatric exam: Present: normal affect, normal mood Skin exam: Present: other (Left lateral leg with 1.5 cm abscess) Course Vital Signs 07/05/18 12:15 Temperature 98.3 F Pulse Rate 98 Respiratory 16 Rate Blood Pressure 101/70 O2 Sat by Pulse 96 Oximetry Procedures - Procedures Initial comment: Left lateral leg was cleansed with Betadine. Prior to performing I&D pus was able to be pushed out from the lesion. Approximately 4-5 mL of pus was drained using pressure. Disposition Clinical Impression: Abscess of left leg Disposition: HOME SELF-CARE Condition: Stable Instructions: Abscess (ED) Additional Instructions: Please follow-up Saturday with Dr. Joseph as scheduled. Return for increased pain , swelling, redness, fevers, worsening symptoms or other concerns. If wound persists you may need to see Dr. Vigil again. Please monitor Coumadin level closely with Bactrim. You may need adjustments made. Twice daily wash area with soap and water and apply antibiotic ointment. Prescriptions: Sulfamethox-Tmp 800-160Mg [Bactrim DS 800-160 mg] 2 each PO Q12HR #40 tab Is patient prescribed a controlled substance at d/c from ED?: No Referrals: Pete Joseph MD [Primary Care Provider] - 1-2 days Time of Disposition: 13:01
== END 2018-07-05 13:20 | disposition home or self-care (01) ==
LOC: EC 12:13
DX: L02.416 Cutaneous abscess of left lower limb (principal); I48.91 Unspecified atrial fibrillation; M19.90 Unspecified osteoarthritis, unspecified site; Z79.82 Long term (current) use of aspirin; Z79.01 Long term (current) use of anticoagulants; Z79.899 Other long term (current) drug therapy; Z88.5 Allergy status to narcotic agent; Z95.5 Presence of coronary angioplasty implant and graft; Z96.619 Presence of unspecified artificial shoulder joint; Z98.1 Arthrodesis status; Z87.891 Personal history of nicotine dependence; Z86.718 Personal history of other venous thrombosis and embolism; Z86.14 Personal history of Methicillin resistant Staphylococcus aureus infection
CPT/HCPCS: 10060; 87070; 87077; 87186; 87205; 99283

== ENCOUNTER 2018-07-06 14:26 | Inpatient (IN) | payer MEDICARE ==
[2018-07-06] MEDS ORDERED: IPRATROPIUM-ALBUTEROL 3 ML NEB INHALATION STA (15:11)
[2018-07-06] MEDS ORDERED: methylPREDNISolone SOD SUCCI 125 MG/2 ML VIAL IV STA (15:11)
--- NOTE | 2018-07-06 15:18 | ED ---
General Adult HPI - General Chief complaint: Upper Respiratory Infection Stated complaint: Weakness Time Seen by Provider: 07/06/18 14:45 Source: patient, family, RN notes reviewed Mode of arrival: wheelchair Limitations: no limitations - History of Present Illness Initial comments: Patient is a pleasant 78-year-old male presenting to the emergency Department with complaints of cough and difficulty in breathing. Onset of symptoms was last night. Symptoms worsen this morning. Patient does have cough that is nonproductive. Patient did have some chest congestion earlier, no chest pain. Patient does have history of similar symptoms previously associated with asbestosis. Patient is feeling generally weak. Patient has difficulty getting up and transferring secondary to generalized weakness. No isolated weakness. Patient is limited normally secondary to severe rheumatoid and RCA arthritis. Patient is on disability for arthritis. - Related Data Home Medications Medication Instructions Recorded Confirmed Acetaminophen-Codeine 300-30mg 1 tab PO Q6H PRN 07/18/16 07/06/18 [Tylenol w/codeine #3] Aspirin 81 mg PO DAILY 07/18/16 07/06/18 Gabapentin [Neurontin] 300 mg PO TID 07/18/16 07/06/18 Hydroxychloroquine Sulfate 200 mg PO DAILY 07/18/16 07/06/18 [Plaquenil] L.acidoph,Paracasei, B.lactis 1 cap PO DAILY 07/18/16 07/06/18 [Probiotic] Tamsulosin [Flomax] 0.4 mg PO DAILY 07/18/16 07/06/18 fentaNYL 50MCG/HR PATCH [Duragesic 50 mcg TRANSDERM Q72H 07/18/16 07/06/18 50MCG/HR] Digoxin [Lanoxin] 125 mcg PO QAM 01/10/17 07/06/18 Ferrous Sulfate [Iron (65 MG 325 mg PO DAILY 08/21/17 07/06/18 Elemental)] Cholecalciferol (Vitamin D3) 2,000 unit PO DAILY 10/11/17 07/06/18 [Vitamin D3] Cyclobenzaprine [Flexeril] 5 mg PO HS 10/11/17 07/06/18 Warfarin [Coumadin] 1 - 1.5 mg PO HS 10/11/17 07/06/18 Furosemide [Lasix] 20 mg PO DAILY 07/06/18 07/06/18 Lidocaine 5% Patch [Lidoderm] 1 patch TOPICAL DAILY 07/06/18 07/06/18 Sulfamethox-Tmp 800-160Mg [Bactrim 2 tab PO Q12HR 07/06/18 07/06/18 DS 800-160 mg] predniSONE 10 mg PO DAILY 07/06/18 07/06/18 Allergies Allergy/AdvReac Type Severity Reaction Status Date / Time meperidine Allergy Nausea & Verified 07/06/18 15:18 Vomiting propoxyphene [From Darvon] Allergy Unknown Verified 07/06/18 15:18 morphine AdvReac Confusion Verified 07/06/18 15:18 Review of Systems ROS Statement: Those systems with pertinent positive or pertinent negative responses have been documented in the HPI. ROS Other: All systems not noted in ROS Statement are negative. Constitutional: Denies: fever Eyes: Denies: eye pain ENT: Reports: congestion. Denies: ear pain Respiratory: Reports: as per HPI, cough, dyspnea Cardiovascular: Denies: chest pain Endocrine: Reports: fatigue Gastrointestinal: Denies: abdominal pain Genitourinary: Denies: dysuria Musculoskeletal: Denies: back pain Skin: Denies: rash Neurological: Reports: as per HPI Past Medical History Past Medical History: Atrial Fibrillation, Deep Vein Thrombosis (DVT), Osteoarthritis (OA), Rheumatoid Arthritis (RA), Skin Disorder Additional Past Medical History / Comment(s): small hiatal hernia, asbestosis, wound outside left foot, hx colitis, wheelchair-non ambulatory from severe RA- "difficulty bending wrists or striaghtening arms, hx fx back,, "low BP", hx DVT rt [id number], kidney stones, stomach ulcer. History of Any Multi-Drug Resistant Organisms: MRSA Date of last positivie culture/infection: lt knee MDRO Source:: lt. leg Past Surgical History: Appendectomy, Back Surgery, Heart Catheterization, Joint Replacement, Tonsillectomy Additional Past Surgical History / Comment(s): alfredito hip replacments &alfredito knee replacments,,metatarsal heads removed,fingers,shoulder joint replaced,spinal fusion C1&2,colectomy 08/28/16 debridement left lateral foot, lt great toe amp thru metatarsal, upper endocodpy. picc line -since removed,lithotripsy x2 Past Anesthesia/Blood Transfusion Reactions: Postoperative Nausea & Vomiting ( PONV) Past Psychological History: No Psychological Hx Reported Smoking Status: Former smoker Past Alcohol Use History: None Reported Past Drug Use History: None Reported - Past Family History Mother Family Medical History: AICD/Pacemaker, Cancer Additional Family Medical History / Comment(s): Breast, pacemaker Father Family Medical History: AICD/Pacemaker Additional Family Medical History / Comment(s): pacemaker General Exam Limitations: no limitations General appearance: alert, in no apparent distress Head exam: Present: atraumatic Eye exam: Present: normal appearance ENT exam: Present: normal oropharynx Neck exam: Present: normal inspection Respiratory exam: Present: wheezes, rales Cardiovascular Exam: Present: regular rate, normal rhythm GI/Abdominal exam: Present: soft. Absent: tenderness Extremities exam: Present: other (Severe arthritis of the distal extremities causing deformity) Neurological exam: Present: alert Psychiatric exam: Present: normal affect, normal mood Skin exam: Present: other (Left lateral leg abscess) Course Vital Signs 07/06/18 07/06/18 07/06/18 14:30 15:30 15:33 Temperature 98.6 F Pulse Rate 51 L 98 93 Respiratory 18 20 Rate Blood Pressure 78/53 112/90 O2 Sat by Pulse 90 L 96 Oximetry 07/06/18 07/06/18 15:43 16:00 Temperature Pulse Rate 98 98 Respiratory 21 Rate Blood Pressure 112/90 O2 Sat by Pulse 96 Oximetry EKG Findings - EKG Comments: EKG Findings:: Normal sinus rhythm 96. LA 154. QRS 90. QT 3:30. QTC 460. Normal axis. Normal QRS. No acute ST change. Medical Decision Making - Medical Decision Making Patient reevaluated and improved. Patient and family updated on results and plan. Concern exists regarding elevated troponin and some decrease in renal function. In addition there is elevated CPK. Case was discussed in detail with Dr. Villela, who will admit for Dr. Joseph. She does request cardiology and pulmonary consult. Patient has previously seen Dr. Flynn. - Lab Data Result diagrams: 07/06/18 15:05 07/06/18 15:05 Lab Results 07/06/18 07/06/18 07/06/18 Range/Units 15:05 15:05 15:05 WBC 9.8 (3.8-10.6) k/uL RBC 3.91 L (4.30-5.90) m/uL Hgb 12.5 L (13.0-17.5) gm/dL Hct 39.8 (39.0-53.0) % MCV 101.9 H (80.0-100.0) fL MCH 31.9 (25.0-35.0) pg MCHC 31.3 (31.0-37.0) g/dL RDW 13.8 (11.5-15.5) % Plt Count 168 (150-450) k/uL Neutrophils % 89 % Lymphocytes % 5 % Monocytes % 4 % Eosinophils % 1 % Basophils % 0 % Neutrophils # 8.7 H (1.3-7.7) k/uL Lymphocytes # 0.4 L (1.0-4.8) k/uL Monocytes # 0.4 (0-1.0) k/uL Eosinophils # 0.1 (0-0.7) k/uL Basophils # 0.0 (0-0.2) k/uL Macrocytosis Slight PT (9.0-12.0) sec INR (<1.2) APTT (22.0-30.0) sec Sodium 139 (137-145) mmol/L Potassium 4.7 (3.5-5.1) mmol/L Chloride 100 (98-107) mmol/L Carbon Dioxide 29 (22-30) mmol/L Anion Gap 10 mmol/L BUN 33 H (9-20) mg/dL Creatinine 1.27 H (0.66-1.25) mg/dL Est GFR (CKD-EPI)AfAm 62 (>60 ml/min/1.73 sqM) Est GFR (CKD-EPI)NonAf 54 (>60 ml/min/1.73 sqM) Glucose 76 (74-99) mg/dL Calcium 9.2 (8.4-10.2) mg/dL Total Bilirubin 0.8 (0.2-1.3) mg/dL AST 67 H (17-59) U/L ALT 38 (21-72) U/L Alkaline Phosphatase 70 (38-126) U/L Total Creatine Kinase 977 H (55-170) U/L CK-MB (CK-2) 21.2 H (0.0-2.4) ng/mL CK-MB (CK-2) Rel Index 2.2 Troponin I 0.299 H* (0.000-0.034) ng/mL NT-Pro-B Natriuret Pep pg/mL Total Protein 6.7 (6.3-8.2) g/dL Albumin 3.5 (3.5-5.0) g/dL 07/06/18 07/06/18 Range/Units 15:05 15:05 WBC (3.8-10.6) k/uL RBC (4.30-5.90) m/uL Hgb (13.0-17.5) gm/dL Hct (39.0-53.0) % MCV (80.0-100.0) fL MCH (25.0-35.0) pg MCHC (31.0-37.0) g/dL RDW (11.5-15.5) % Plt Count (150-450) k/uL Neutrophils % % Lymphocytes % % Monocytes % % Eosinophils % % Basophils % % Neutrophils # (1.3-7.7) k/uL Lymphocytes # (1.0-4.8) k/uL Monocytes # (0-1.0) k/uL Eosinophils # (0-0.7) k/uL Basophils # (0-0.2) k/uL Macrocytosis PT 22.7 H (9.0-12.0) sec INR 2.3 H (<1.2) APTT 36.8 H (22.0-30.0) sec Sodium (137-145) mmol/L Potassium (3.5-5.1) mmol/L Chloride (98-107) mmol/L Carbon Dioxide (22-30) mmol/L Anion Gap mmol/L BUN (9-20) mg/dL Creatinine (0.66-1.25) mg/dL Est GFR (CKD-EPI)AfAm (>60 ml/min/1.73 sqM) Est GFR (CKD-EPI)NonAf (>60 ml/min/1.73 sqM) Glucose (74-99) mg/dL Calcium (8.4-10.2) mg/dL Total Bilirubin (0.2-1.3) mg/dL AST (17-59) U/L ALT (21-72) U/L Alkaline Phosphatase (38-126) U/L Total Creatine Kinase (55-170) U/L CK-MB (CK-2) (0.0-2.4) ng/mL CK-MB (CK-2) Rel Index Troponin I (0.000-0.034) ng/mL NT-Pro-B Natriuret Pep 2500 pg/mL Total Protein (6.3-8.2) g/dL Albumin (3.5-5.0) g/dL - Radiology Data Radiology results: image reviewed (Chest x-ray shows chronic changes. No acute process.) Disposition Clinical Impression: Dyspnea Disposition: ADMITTED IP TO THIS HOSP Is patient prescribed a controlled substance at d/c from ED?: No Referrals: Pete Joseph MD [Primary Care Provider] - 1-2 days Decision Time: 17:01
[2018-07-06 15:36] LABS: Basophils % (A) 0 %; Eosinophils # (A) 0.1 k/uL (0-0.7); Eosinophils % (A) 1 %; HCT 39.8 % (39.0-53.0); HGB 12.5 gm/dL (13.0-17.5); Lymphocytes # (A) 0.4 k/uL (1.0-4.8); Lymphocytes % (A) 5 %; MCH 31.9 pg (25.0-35.0); MCHC 31.3 g/dL (31.0-37.0); MCV 101.9 fL (80.0-100.0); Macrocytosis Slight; Mean Platelet Volume 6.6; Monocytes # (A) 0.4 k/uL (0-1.0); Monocytes % (A) 4 %; Neutrophils # (A) 8.7 k/uL (1.3-7.7); Neutrophils % (A) 89 %; Platelet Count 168 k/uL (150-450); RBC 3.91 m/uL (4.30-5.90); RDW 13.8 % (11.5-15.5); WBC 9.8 k/uL (3.8-10.6)
[2018-07-06 15:40] LABS: Albumin 3.5 g/dL (3.5-5.0); Calcium 9.2 mg/dL (8.4-10.2); Potassium 4.7 mmol/L (3.5-5.1); Total Bilirubin 0.8 mg/dL (0.2-1.3); Total Protein 6.7 g/dL (6.3-8.2)
[2018-07-06 15:41] LABS: INR 2.3 (<1.2); Partial Thromboplastin Time 36.8 sec (22.0-30.0); Prothrombin Time 22.7 sec (9.0-12.0)
--- NOTE | 2018-07-06 15:58 | XR ---
EXAMINATION TYPE: XR chest 2V DATE OF EXAM: 07/06/2018 COMPARISON: Chest x-ray October 11, 2017 HISTORY: Cough congestion and weakness. TECHNIQUE: Frontal and lateral views of the chest are obtained. FINDINGS: The osseous structures remain demineralized. There is chronic deformity at left shoulder l evel. There is postsurgical change right shoulder level redemonstrated. Cardiac silhouette size is st able and mildly enlarged with atherosclerotic and ectatic thoracic aorta. Calcified pleura laterally left lung is redemonstrated. There is chronic parenchymal changes. There is some left-sided volume lo ss with mediastinal shift redemonstrated. There is no suspicious new focal airspace opacity or pneumo thorax seen bilaterally. Underlying scoliosis is redemonstrated. IMPRESSION: Chronic changes without acute pulmonary process. No significant change from prior.
[2018-07-06 16:01] LABS: Creatine Kinase MB 21.2 ng/mL (0.0-2.4)
[2018-07-06] MEDS ORDERED: SODIUM CHLORIDE 0.9% 500 ML 500 ML IV STA (16:02)
[2018-07-06 16:05] LABS: Troponin I 0.299 ng/mL (0.000-0.034)
[2018-07-06] MEDS ORDERED: ASPIRIN 81 MG PO STA (17:01)
[2018-07-06] MEDS ORDERED: IPRATROPIUM-ALBUTEROL 3 ML NEB INHALATION PRN (17:01)
[2018-07-06] MEDS ORDERED: NITROGLYCERIN SL TABS 0.4 MG TAB SUBLINGUAL PRN (17:01)
[2018-07-06] MEDS: methylPREDNISolone SOD SUCCI 125 MG/2 ML VIAL IV SCH ×2 (18:12→21:50)
[2018-07-06 19:43] VITALS: BMI 20.3
[2018-07-06] MEDS ORDERED: WARFARIN 1 MG TAB PO SCH (21:00)
[2018-07-06 21:13] LABS: Glucose,Whole Blood 224 mg/dL (75-99)
[2018-07-06 21:20] LABS: Creatine Kinase MB 30.9 ng/mL (0.0-2.4)
[2018-07-06] MEDS: IPRATROPIUM-ALBUTEROL 3 ML NEB INHALATION SCH (21:21)
[2018-07-06] MEDS: CYCLOBENZAPRINE 5 MG TAB PO SCH (21:48)
[2018-07-06] MEDS: GABAPENTIN 300 MG CAP PO SCH (21:48)
[2018-07-06] MEDS: Acetaminophen-Codeine 300-30mg TAB PO PRN (21:48)
[2018-07-06] MEDS: SULFAMETHOX-TMP 800-160MG 1 EACH TAB PO SCH (21:48)
[2018-07-06] MEDS: TAMSULOSIN 0.4 MG CAP.ER.24H PO SCH (22:00)
[2018-07-06 22:04] LABS: Troponin I 0.232 ng/mL (0.000-0.034)
[2018-07-07] MEDS: WARFARIN 1 MG TAB PO SCH (02:10)
[2018-07-07 04:13] LABS: Cholesterol 119 mg/dL (<200); HDL Cholesterol 38 mg/dL (40-60); LDL Cholesterol,Calculated 67 mg/dL (0-99); Triglycerides 71 mg/dL (<150)
[2018-07-07 04:28] LABS: Creatine Kinase MB 30.9 ng/mL (0.0-2.4)
[2018-07-07 04:46] LABS: Troponin I 0.141 ng/mL (0.000-0.034)
[2018-07-07] MEDS: methylPREDNISolone SOD SUCCI 125 MG/2 ML VIAL IV SCH ×4 (06:01→21:50)
[2018-07-07 06:33] LABS: Glucose,Whole Blood 131 mg/dL (75-99)
[2018-07-07] MEDS: IPRATROPIUM-ALBUTEROL 3 ML NEB INHALATION SCH ×4 (08:39→20:31)
[2018-07-07] MEDS: SULFAMETHOX-TMP 800-160MG 1 EACH TAB PO SCH (08:57)
[2018-07-07] MEDS: HYDROXYCHLOROQUINE SULFATE 200 MG TAB PO SCH (08:57)
[2018-07-07] MEDS: CHOLECALCIFEROL 1,000 UNIT TAB PO SCH (08:57)
[2018-07-07] MEDS: FERROUS SULFATE 325 MG TAB PO SCH (08:57)
[2018-07-07] MEDS: FUROSEMIDE 20 MG TAB PO SCH (08:57)
[2018-07-07] MEDS: GABAPENTIN 300 MG CAP PO SCH ×3 (08:57→21:50)
[2018-07-07] MEDS: TAMSULOSIN 0.4 MG CAP.ER.24H PO SCH (08:57)
[2018-07-07] MEDS: DIGOXIN 125 MCG TAB PO SCH (08:57)
[2018-07-07] MEDS: LIDOCAINE 5% PATCH TOPICAL SCH (08:58)
[2018-07-07] MEDS ORDERED: ASPIRIN 325 MG TAB PO SCH (09:00)
--- NOTE | 2018-07-07 10:36 | P.CRDCN ---
History of Present Illness Consult date: 07/07/18 Requesting physician: Pati Villela Consult reason: shortness of breath Chief complaint: Shortness of breath, shaking History of present illness: This is a 78-year-old gentleman who follows regularly with Dr. Michelle Stock in the office. He has a known history of severe rheumatoid arthritis, paroxysmal atrial fibrillation, hypertension, hyperlipidemia, pulmonary fibrosis. He also has known aortic stenosis. Patient did have a cardiac catheterization performed in 2010 which did not reveal any significant obstructive coronary artery disease. He presents to the hospital on this occasion with symptoms of feeling weak, patient also states he had an episode of shortness of breath and shaking, his family was unable to move him from his chair to another chair and hence the patient was brought to the emergency room for further evaluation. Patient did have an echocardiogram with Doppler study performed here in September which revealed a normal left ventricular systolic function, moderate aortic stenosis. Chest x-ray on arrival here revealed chronic changes without acute pulmonary process. EKG showed a normal sinus rhythm with no acute changes. His blood pressure on arrival here 78/50, with a heart rate in the 50s, 90% on room air. Blood pressure this morning 117/60 with a heart rate in the 80s, 94% on room air. White blood cell count 9.8, hemoglobin 12.5, platelet count 168. INR 2.3. Sodium 139, potassium 4.7, BUN 33, creatinine 1.2. CK 977, 1238, 1094, MB 21.2, 30.9, 30.9. Troponin 0.29, 0.23, 0.14. BNP level 2500. Lanoxin level 1.3. At the time of my examination this morning, patient is sitting comfortably in bed, no complaints. He denies any chest discomfort. Past Medical History Past Medical History: Atrial Fibrillation, Deep Vein Thrombosis (DVT), Osteoarthritis (OA), Rheumatoid Arthritis (RA), Skin Disorder Additional Past Medical History / Comment(s): small hiatal hernia, asbestosis, wound outside left foot, hx colitis, wheelchair-non ambulatory from severe RA- "difficulty bending wrists or striaghtening arms, hx fx back,, "low BP", hx DVT rt [id number], kidney stones, stomach ulcer. History of Any Multi-Drug Resistant Organisms: MRSA Date of last positivie culture/infection: lt knee MDRO Source:: lt. leg Past Surgical History: Appendectomy, Back Surgery, Heart Catheterization, Joint Replacement, Tonsillectomy Additional Past Surgical History / Comment(s): alfredito hip replacments &alfredito knee replacments,,metatarsal heads removed,fingers,shoulder joint replaced,spinal fusion C1&2,colectomy 08/28/16 debridement left lateral foot, lt great toe amp thru metatarsal, upper endocodpy. picc line -since removed,lithotripsy x2 Past Anesthesia/Blood Transfusion Reactions: Postoperative Nausea & Vomiting ( PONV) Past Psychological History: No Psychological Hx Reported Additional Psychological History / Comment(s): pt lives iwth sujey in single level home with no porch steps. has electric w/c. private care hired. no pets. pt served in the [employer] and is retired,worked in sales. Smoking Status: Former smoker Past Alcohol Use History: None Reported Additional Past Alcohol Use History / Comment(s): started smoking age 19(1959), quit 1973 smoked 1.5 ppd Past Drug Use History: None Reported - Past Family History Mother Family Medical History: AICD/Pacemaker, Cancer Additional Family Medical History / Comment(s): Breast, pacemaker Father Family Medical History: AICD/Pacemaker Additional Family Medical History / Comment(s): pacemaker Medications and Allergies Home Medications Medication Instructions Recorded Confirmed Type Acetaminophen-Codeine 300-30mg 1 tab PO Q6H PRN 07/18/16 07/06/18 History [Tylenol w/codeine #3] Aspirin 81 mg PO DAILY 07/18/16 07/06/18 History Gabapentin [Neurontin] 300 mg PO TID 07/18/16 07/06/18 History Hydroxychloroquine Sulfate 200 mg PO DAILY 07/18/16 07/06/18 History [Plaquenil] L.acidoph,Paracasei, B.lactis 1 cap PO DAILY 07/18/16 07/06/18 History [Probiotic] Tamsulosin [Flomax] 0.4 mg PO DAILY 07/18/16 07/06/18 History fentaNYL 50MCG/HR PATCH [Duragesic 50 mcg TRANSDERM Q72H 07/18/16 07/06/18 History 50MCG/HR] Digoxin [Lanoxin] 125 mcg PO QAM 01/10/17 07/06/18 History Ferrous Sulfate [Iron (65 MG 325 mg PO DAILY 08/21/17 07/06/18 History Elemental)] Cholecalciferol (Vitamin D3) 2,000 unit PO DAILY 10/11/17 07/06/18 History [Vitamin D3] Cyclobenzaprine [Flexeril] 5 mg PO HS 10/11/17 07/06/18 History Warfarin [Coumadin] 1 mg PO SUTUTH 10/11/17 07/06/18 History Furosemide [Lasix] 20 mg PO DAILY 07/06/18 07/06/18 History Lidocaine 5% Patch [Lidoderm] 1 patch TOPICAL DAILY 07/06/18 07/06/18 History Sulfamethox-Tmp 800-160Mg [Bactrim 2 tab PO Q12HR 07/06/18 07/06/18 History DS 800-160 mg] Warfarin [Coumadin] 1.5 mg PO MOWEFRSA 07/06/18 07/06/18 History predniSONE 10 mg PO DAILY 07/06/18 07/06/18 History Allergies Allergy/AdvReac Type Severity Reaction Status Date / Time meperidine Allergy Nausea & Verified 07/06/18 15:18 Vomiting propoxyphene [From Darvon] Allergy Unknown Verified 07/06/18 15:18 morphine AdvReac Confusion Verified 07/06/18 15:18 Physical Exam Vitals: Vital Signs Temp Pulse Pulse Resp BP BP Pulse Ox 07/07/18 08:50 96 07/07/18 08:40 92 07/07/18 08:00 96.8 F L 81 18 117/67 94 L 07/07/18 04:00 97.0 F L 76 18 140/58 93 L 07/06/18 23:53 96.9 F L 98 17 117/66 94 L 07/06/18 21:38 97 07/06/18 21:24 97 07/06/18 19:51 96.4 F L 74 18 109/56 93 L 07/06/18 18:30 98.2 F 96 19 116/67 96 07/06/18 18:00 90 18 123/81 94 L 07/06/18 17:30 90 16 109/77 93 L 07/06/18 17:00 18 114/70 97 07/06/18 16:30 96 17 111/72 95 07/06/18 16:00 98 21 112/90 96 07/06/18 15:43 98 07/06/18 15:33 93 07/06/18 15:30 98 20 112/90 96 07/06/18 14:30 98.6 F 51 L 18 78/53 90 L Intake and Output 07/06/18 07/07/18 07/07/18 22:59 06:59 14:59 Output Total 175 500 Balance -175 -500 Output: Urine 175 500 Other: Voiding Method Urinal Urinal # Voids 1 2 Weight 58.967 kg 64.8 kg PHYSICAL EXAMINATION: GENERAL: 78-year-old gentleman in no acute distress at the time of my examination HEENT: Head is atraumatic, normocephalic. Pupils equal, round. Sclera anicteric. Conjunctiva are clear. Mucous membranes of the mouth are moist. Neck is supple. There is no elevated jugular venous pressure. No carotid bruit is heard. HEART EXAMINATION: Heart S1 and S2 systolic ejection murmur is heard. CHEST EXAMINATION: Lungs reveal scattered coarse rhonchi throughout. ABDOMEN: Soft, nontender. Bowel sounds are heard. No organomegaly noted. EXTREMITIES: 2+ peripheral pulses with no evidence of peripheral edema and no calf tenderness noted. Severe disfiguration from rheumatoid arthritis. NEUROLOGIC patient is awake, alert and oriented 3. . Results 07/06/18 15:05 07/06/18 15:05 Cardiac Enzymes 07/06/18 07/06/18 07/06/18 Range/Units 15:05 15:05 20:11 AST 67 H (17-59) U/L CK-MB (CK-2) 21.2 H 30.9 H (0.0-2.4) ng/mL Troponin I 0.299 H* 0.232 H* (0.000-0.034) ng/mL 07/07/18 Range/Units 03:31 AST (17-59) U/L CK-MB (CK-2) 30.9 H (0.0-2.4) ng/mL Troponin I 0.141 H* (0.000-0.034) ng/mL Coagulation 07/06/18 Range/Units 15:05 PT 22.7 H (9.0-12.0) sec APTT 36.8 H (22.0-30.0) sec Lipids 07/07/18 Range/Units 03:31 Triglycerides 71 (<150) mg/dL Cholesterol 119 (<200) mg/dL HDL Cholesterol 38 L (40-60) mg/dL CBC 07/06/18 Range/Units 15:05 WBC 9.8 (3.8-10.6) k/uL RBC 3.91 L (4.30-5.90) m/uL Hgb 12.5 L (13.0-17.5) gm/dL Hct 39.8 (39.0-53.0) % Plt Count 168 (150-450) k/uL Comprehensive Metabolic Panel 07/06/18 Range/Units 15:05 Sodium 139 (137-145) mmol/L Potassium 4.7 (3.5-5.1) mmol/L Chloride 100 (98-107) mmol/L Carbon Dioxide 29 (22-30) mmol/L BUN 33 H (9-20) mg/dL Creatinine 1.27 H (0.66-1.25) mg/dL Glucose 76 (74-99) mg/dL Calcium 9.2 (8.4-10.2) mg/dL AST 67 H (17-59) U/L ALT 38 (21-72) U/L Alkaline Phosphatase 70 (38-126) U/L Total Protein 6.7 (6.3-8.2) g/dL Albumin 3.5 (3.5-5.0) g/dL Current Medications Generic Name Dose Route Start Last Admin Trade Name Freq PRN Reason Stop Dose Admin Acetaminophen/Codeine Phosphate 1 each 07/06/18 20:13 07/06/18 21:48 Tylenol #3 PO 1 each Q6H PRN Administration Pain Albuterol/Ipratropium 3 ml 07/06/18 20:00 07/07/18 08:39 Duoneb 0.5 Mg-3 Mg/3 Ml Soln INHALATION 3 ml RT-QID GIGI Administration Albuterol/Ipratropium 3 ml 07/06/18 17:01 Duoneb 0.5 Mg-3 Mg/3 Ml Soln INHALATION RT-Q4H PRN Shortness Of Breath Or Wheezing Aspirin 325 mg 07/07/18 09:00 07/07/18 08:56 Aspirin PO 325 mg DAILY GIGI Administration Cholecalciferol 2,000 unit 07/07/18 12:00 07/07/18 08:57 Vitamin D3 PO 2,000 unit 1200 [facility] Administration Cyclobenzaprine HCl 5 mg 07/06/18 21:00 07/06/18 21:48 Flexeril PO 5 mg HS GIGI Administration Digoxin 125 mcg 07/07/18 09:00 07/07/18 08:57 Lanoxin PO 125 mcg QAM GIGI Administration Fentanyl 1 patch 07/06/18 21:00 07/07/18 06:00 Duragesic 50mcg/Hr Patch TRANSDERM 1 patch Q72H GIGI Administration Ferrous Sulfate 325 mg 07/07/18 12:00 07/07/18 08:57 Feosol PO 325 mg 1200 GIGI Administration Furosemide 20 mg 07/07/18 09:00 07/07/18 08:57 Lasix PO 20 mg DAILY GIGI Administration Gabapentin 300 mg 07/06/18 22:00 07/07/18 08:57 Neurontin PO 300 mg TID GIGI Administration Hydroxychloroquine Sulfate 200 mg 07/07/18 09:00 07/07/18 08:57 Plaquenil PO 200 mg DAILY [facility] Administration Lidocaine 1 patch 07/07/18 09:00 07/07/18 08:58 Lidoderm TOPICAL 1 patch DAILY [facility] Administration Methylprednisolone Sodium Succinate 60 mg 07/06/18 18:00 07/07/18 06:01 Solu-Medrol IV 60 mg Q6HR [facility] Administration Nitroglycerin 0.4 mg 07/06/18 17:01 Nitrostat SUBLINGUAL Q5M PRN Chest Pain Sodium Chloride 10 ml 07/06/18 21:00 07/07/18 09:03 Saline Flush IV Not Given BID [facility] Tamsulosin HCl 0.4 mg 07/06/18 20:15 07/07/18 08:57 Flomax PO 0.4 mg DAILY [facility] Administration Trimethoprim/Sulfamethoxazole 2 each 07/06/18 21:00 07/07/18 08:57 Bactrim Ds PO 07/15/18 21:01 2 each Q12HR [facility] Administration Warfarin Sodium 1.5 mg 07/07/18 18:00 Coumadin PO [id number]@1800 [facility] Warfarin Sodium 1 mg 07/06/18 21:00 07/07/18 02:10 Coumadin PO Not Given [id number] [facility] Intake and Output 07/06/18 07/07/18 07/07/18 22:59 06:59 14:59 Output Total 175 500 Balance -175 -500 Output: Urine 175 500 Other: Voiding Method Urinal Urinal # Voids 1 2 Weight 58.967 kg 64.8 kg 07/06/18 15:05 07/06/18 15:05 EKG Interpretations (text) EKG shows normal sinus rhythm with no acute changes. Assessment and Plan Plan: Assessment and plan #1 symptoms of fairly sudden onset of weakness with associated shortness of breath and shaking. Chest x-ray showed chronic changes without any acute pulmonary process. BNP level 2500. #2 abnormal CK-MBs, with abnormality in troponin, not consistent with acute coronary syndrome, EKG shows normal sinus rhythm with no acute changes. Has been noted on prior admission that the patient had similar abnormality in troponin. Cardiac catheterization performed in 2010 revealed normal coronary arteries. #3 severe rheumatoid arthritis with chronic pain #4 paroxysmal atrial fibrillation on Coumadin for anticoagulation #5 hypertension #6 hyperlipidemia #7 pulmonary fibrosis Plan We will repeat an echocardiogram with Doppler study. Most recent echo was performed in September of this year which revealed a normal left ventricular systolic function, moderate aortic stenosis. We will check orthostatic blood pressure and heart rate every shift. Discontinue aspirin. Further recommendations to follow. DNP note has been reviewed, I agree with a documented findings and plan of care. Patient was seen and examined.
[2018-07-07 11:49] LABS: Glucose,Whole Blood 127 mg/dL (75-99)
--- NOTE | 2018-07-07 12:23 | ECHOF ---
Referral Reason:Dyspnea MEASUREMENTS -------- HEIGHT: 170.2 cm WEIGHT: 64.4 kg BP: 140/58 RVIDd: 3.1 cm (< 3.3) IVSd: 1.5 cm (0.6 - 1.1) LVIDd: 3.3 cm (3.9 - 5.3) LVPWd: 1.3 cm (0.6 - 1.1) IVSs: 1.9 cm LVIDs: 2.6 cm LVPWs: 1.7 cm Ao Diam: 3.2 cm (2.0 - 3.7) AV Cusp: 1.1 cm (1.5 - 2.6) LA Diam: 2.5 cm (2.7 - 3.8) MV EXCURSION: 11.526 mm (> 18.000) MV EF SLOPE: 51 mm/s (70 - 150) EPSS: 0.7 cm MV E Michele: 0.80 m/s MV DecT: 242 ms MV A Michele: 0.93 m/s MV E/A Ratio: 0.86 AV maxP.65 mmHg AV meanP.33 mmHg RAP: 5.00 mmHg RVSP: 26.63 mmHg FINDINGS -------- Sinus rhythm. This was a technically good study. The left ventricular size is normal. There is moderate concentric left ventricular hypertrophy. O verall left ventricular systolic function is low-normal with, an EF between 50 - 55 %. The right ventricle is normal in size. The left atrial size is normal. The right atrium is normal in size. Aortic valve is trileaflet and is moderately thickened. There is moderate aortic stenosis present. Peak/mean gradient across the Aortic Valve is 36.65mmHg / 20.33mmHg. The mitral valve leaflets are mildly thickened. Mild mitral annular calcification present. Mild m itral regurgitation is present. Mild tricuspid regurgitation present. The right ventricular systolic pressure, as measured by Doppl er, is 26.63mmHg. Trace/mild (physiologic) pulmonic regurgitation. The aortic root size is normal. IVC Not well visulized. There is a trivial pericardial effusion present. CONCLUSIONS -------- 1. Sinus rhythm. 2. This was a technically good study. 3. The left ventricular size is normal. 4. There is moderate concentric left ventricular hypertrophy. 5. Overall left ventricular systolic function is low-normal with, an EF between 50 - 55 %. 6. The right ventricle is normal in size. 7. The left atrial size is normal. 8. The right atrium is normal in size. 9. Aortic valve is trileaflet and is moderately thickened. 10. There is moderate aortic stenosis present. 11. Peak/mean gradient across the Aortic Valve is 36.65mmHg / 20.33mmHg. 12. The mitral valve leaflets are mildly thickened. 13. Mild mitral annular calcification present. 14. Mild mitral regurgitation is present. 15. Mild tricuspid regurgitation present. 16. The right ventricular systolic pressure, as measured by Doppler, is 26.63mmHg. 17. Trace/mild (physiologic) pulmonic regurgitation. 18. The aortic root size is normal. 19. IVC Not well visulized. 20. There is a trivial pericardial effusion present. [employer]: Romina Murillo RDCS
[2018-07-07 16:41] LABS: Appearance,Urine Turbid (Clear); Bilirubin,Urine Negative (Negative); Blood,Urine Negative (Negative); Calcium Oxalate Crystals,Urine Moderate /hpf; Color,Urine Yellow; Glucose,Urine (UA) Negative (Negative); Hyaline Casts,Urine 4 /lpf (0-2); Ketones,Urine Negative (Negative); Leukocyte Esterase,Urine Negative (Negative); Nitrite,Urine Negative (Negative); Protein,Urine Negative (Negative); Specific Gravity,Urine 1.012 (1.001-1.035); Urobilinogen,Urine <2.0 mg/dL (<2.0); WBC,Urine <1 /hpf (0-5)
[2018-07-07 17:04] LABS: Glucose,Whole Blood 154 mg/dL (75-99)
[2018-07-07] MEDS ORDERED: WARFARIN 1 MG TAB PO SCH (18:00)
--- NOTE | 2018-07-07 18:19 | P.HPIM ---
History of Present Illness H&P Date: 07/07/18 77 years old male patient of Dr. Jake Stock, with past medical history of severely debilitating rheumatoid arthritis with loss of function of his hands bilaterally, history of atrial fibrillation, BPH, degenerative disc disease presents pulmonary fibrosis, asbestosis, moderate aortic stenosis, asbestosis admitted to the emergency room secondary to weakness, blood pressure was 78/50, patient also has had cough congestion, since Saturday, weak and has been unable to transfers from chair to lift chair, was started on Bactrim double strength 2 tabs twice a day from the emergency room yesterday secondary to an abscess in the left eye. Patient also is had wheezing and coughing, patient has nebulizer treatments which is not helping, and no O2 requirements at home. Patient has been wheelchair bound secondary to severe RA with multiple rheumatoid nodules and deformities To she also had cardiac cath performed in 2010 which failed to reveal any obstructive disease, presenting with a slightly elevated troponin, cardiology has been consulted secondary to the mild troponin elevation, BNP was 2500 troponin on admission was 0.232, 0.141, CK 1238, 1094 CK index 2.5/2.8. Urinalysis shows calcium oxalate crystals, urine WBC of less than 1 influenza test negative Review of Systems Constitutional: Reports as per HPI, Reports chronic pain, Denies anorexia, Denies chills, Denies chronic headaches, Denies daytime sleepiness, Denies fatigue, Denies fever, Denies lethargy, Denies malaise, Denies night sweats, Denies poor appetite, Denies sweats, Denies weakness, Denies weight gain, Denies weight loss Ears, nose, mouth and throat: Reports as per HPI, Denies ant. neck pain, Denies bleeding gums, Denies dental pain, Denies dysphagia, Denies epistaxis, Denies headache, Denies hoarseness, Denies mouth pain, Denies nasal congestion, Denies nasal discharge, Denies neck fullness/pressure, Denies neck lump, Denies nose pain, Denies odynophagia, Denies post-nasal drip, Denies sinus pain, Denies sinus pressure, Denies swelling in mouth, Denies swelling in throat, Denies sore throat, Denies vertigo, Denies voice changes Cardiovascular: Reports as per HPI, Reports dyspnea on exertion, Reports orthopnea, Reports shortness of breath, Denies chest pain, Denies claudication, Denies decreased exercise tolerance, Denies edema, Denies high blood pressure, Denies irregular heart beat, Denies leg edema, Denies lightheadedness, Denies palpitations, Denies paroxysmal nocturnal dyspnea, Denies phlebitis, Denies rapid heart beat, Denies syncope Respiratory: Reports as per HPI, Denies congestion, Denies cough, Denies cough with sputum, Denies dyspnea, Denies excessive sputum, Denies hemoptysis, Denies home oxygen, Denies pain, Denies pain on inspiration, Denies pleurisy, Denies respiratory infections, Denies sleep apnea, Denies snoring, Denies wheezing Gastrointestinal: Reports as per HPI Genitourinary: Reports as per HPI, Denies decreased libido, Denies difficulties fathering child, Denies discharge, Denies dysuria, Denies erectile dysfunction, Denies flank pain, Denies genital pain, Denies genital sores, Denies hematuria, Denies impotence, Denies incontinence, Denies kidney stones, Denies nocturia, Denies polyuria, Denies testicular lump, Denies testicular pain, Denies urinary frequency, Denies urinary hesitancy, Denies urinary retention Musculoskeletal: Reports as per HPI, Denies arm numbness/tingling, Denies atrophy, Denies fractures, Denies frequent falls, Denies gait dysfunction, Denies hot joints, Denies leg numbness/tingling, Denies limitation of motion, Denies loss of height, Denies low back pain, Denies morning stiffness, Denies muscle cramps, Denies muscle weakness, Denies myalgias, Denies neck pain, Denies neck stiffness, Denies prior amputations, Denies redness of joints, Denies shooting arm pain, Denies shooting leg pain Integumentary: Reports as per HPI, Denies acne, Denies boils, Denies brittle nails, Denies change in hair/nails, Denies color changes, Denies darkening of skin, Denies depigmentation, Denies dryness, Denies foot/leg ulcers, Denies growths, Denies hirsutism, Denies lesions, Denies onychomycosis, Denies pruritus , Denies rash, Denies sores, Denies striae, Denies unusual bruising, Denies wounds Neurological: Reports as per HPI, Reports balance difficulties, Reports gait dysfunction, Reports motor disturbance, Reports spasticity, Reports weakness, Denies aphasia, Denies ataxia, Denies burning pain, Denies change in mentation, Denies change in smell/taste, Denies change in speech, Denies confusion, Denies convulsions, Denies double vision, Denies head injury, Denies headaches, Denies hearing difficulties, Denies lack of coordination, Denies loss of vision, Denies memory loss, Denies migraines, Denies numbness, Denies paralysis, Denies paresthesias, Denies seizures, Denies sensory deficit, Denies syncope, Denies tic, Denies tingling, Denies transient paralysis, Denies tremors, Denies vertigo , Denies visual changes Psychiatric: Reports as per HPI, Denies anhedonia, Denies anxiety, Denies anxiety attacks, Denies change in appetite, Denies change in libido, Denies change in sleep habits, Denies confusion, Denies depression, Denies difficulty concentrating, Denies disorientation, Denies hallucinations, Denies hopelessness , Denies hypersomnia, Denies insomnia, Denies irritability, Denies memory loss, Denies mood swings, Denies paranoia, Denies sadness/tearfulness, Denies sleep disturbances, Denies suicidal ideation Endocrine: Reports as per HPI, Denies cold intolerance, Denies deepening of the voice, Denies excessive sweating, Denies excessive thirst, Denies fatigue, Denies flushing, Denies heat intolerance, Denies high blood sugars, Denies increase in ring/shoe/hat size, Denies low blood sugars, Denies nocturia, Denies palpitations, Denies polydipsia, Denies polyphagia, Denies polyuria, Denies proptosis, Denies recent glucocorticoid use, Denies thyroid mass, Denies weight change Hematologic/Lymphatic: Reports as per HPI Allergic/Immunologic: Reports as per HPI, Denies allergic rhinitis, Denies anaphylaxis, Denies angioedema, Denies gluten intolerance, Denies persistent infections, Denies seasonal allergies, Denies urticaria, Denies wheezing Past Medical History Past Medical History: Atrial Fibrillation, Deep Vein Thrombosis (DVT), Osteoarthritis (OA), Rheumatoid Arthritis (RA), Skin Disorder Additional Past Medical History / Comment(s): small hiatal hernia, asbestosis, wound outside left foot, hx colitis, wheelchair-non ambulatory from severe RA- "difficulty bending wrists or striaghtening arms, hx fx back,, "low BP", hx DVT rt [id number], kidney stones, stomach ulcer. History of Any Multi-Drug Resistant Organisms: MRSA Date of last positivie culture/infection: lt knee MDRO Source:: lt. leg Past Surgical History: Appendectomy, Back Surgery, Heart Catheterization, Joint Replacement, Tonsillectomy Additional Past Surgical History / Comment(s): alfredito hip replacments &alfredito knee replacments,,metatarsal heads removed,fingers,shoulder joint replaced,spinal fusion C1&2,colectomy 08/28/16 debridement left lateral foot, lt great toe amp thru metatarsal, upper endocodpy. picc line -since removed,lithotripsy x2 Past Anesthesia/Blood Transfusion Reactions: Postoperative Nausea & Vomiting ( PONV) Past Psychological History: No Psychological Hx Reported Additional Psychological History / Comment(s): pt lives iwth sujey in single level home with no porch steps. has electric w/c. private care hired. no pets. pt served in the [employer] and is retired,worked in sales. Smoking Status: Former smoker Past Alcohol Use History: None Reported Additional Past Alcohol Use History / Comment(s): started smoking age 19(195), quit 1973 smoked 1.5 ppd Past Drug Use History: None Reported - Past Family History Mother Family Medical History: AICD/Pacemaker, Cancer Additional Family Medical History / Comment(s): Breast, pacemaker Father Family Medical History: AICD/Pacemaker Additional Family Medical History / Comment(s): pacemaker Medications and Allergies Home Medications Medication Instructions Recorded Confirmed Type Acetaminophen-Codeine 300-30mg 1 tab PO Q6H PRN 07/18/16 07/06/18 History [Tylenol w/codeine #3] Aspirin 81 mg PO DAILY 07/18/16 07/06/18 History Gabapentin [Neurontin] 300 mg PO TID 07/18/16 07/06/18 History Hydroxychloroquine Sulfate 200 mg PO DAILY 07/18/16 07/06/18 History [Plaquenil] L.acidoph,Paracasei, B.lactis 1 cap PO DAILY 07/18/16 07/06/18 History [Probiotic] Tamsulosin [Flomax] 0.4 mg PO DAILY 07/18/16 07/06/18 History fentaNYL 50MCG/HR PATCH [Duragesic 50 mcg TRANSDERM Q72H 07/18/16 07/06/18 History 50MCG/HR] Digoxin [Lanoxin] 125 mcg PO QAM 01/10/17 07/06/18 History Ferrous Sulfate [Iron (65 MG 325 mg PO DAILY 08/21/17 07/06/18 History Elemental)] Cholecalciferol (Vitamin D3) 2,000 unit PO DAILY 10/11/17 07/06/18 History [Vitamin D3] Cyclobenzaprine [Flexeril] 5 mg PO HS 10/11/17 07/06/18 History Warfarin [Coumadin] 1 mg PO SUTUTH 10/11/17 07/06/18 History Furosemide [Lasix] 20 mg PO DAILY 07/06/18 07/06/18 History Lidocaine 5% Patch [Lidoderm] 1 patch TOPICAL DAILY 07/06/18 07/06/18 History Sulfamethox-Tmp 800-160Mg [Bactrim 2 tab PO Q12HR 07/06/18 07/06/18 History DS 800-160 mg] Warfarin [Coumadin] 1.5 mg PO MOWEFRSA 07/06/18 07/06/18 History predniSONE 10 mg PO DAILY 07/06/18 07/06/18 History Allergies Allergy/AdvReac Type Severity Reaction Status Date / Time meperidine Allergy Nausea & Verified 07/06/18 15:18 Vomiting propoxyphene [From Darvon] Allergy Unknown Verified 07/06/18 15:18 morphine AdvReac Confusion Verified 07/06/18 15:18 Physical Exam Vitals: Vital Signs Temp Pulse Pulse Resp BP BP Pulse Ox 07/07/18 16:00 96.0 F L 78 18 116/56 91 L 07/07/18 15:57 96 07/07/18 15:48 92 07/07/18 12:04 96 07/07/18 12:00 96.3 F L 100 18 149/68 91 L 07/07/18 11:55 88 07/07/18 08:50 96 07/07/18 08:40 92 07/07/18 08:00 96.8 F L 81 18 117/67 94 L 07/07/18 04:00 97.0 F L 76 18 140/58 93 L 07/06/18 23:53 96.9 F L 98 17 117/66 94 L 07/06/18 21:38 97 07/06/18 21:24 97 07/06/18 19:51 96.4 F L 74 18 109/56 93 L 07/06/18 18:30 98.2 F 96 19 116/67 96 07/06/18 18:00 90 18 123/81 94 L Intake and Output 07/07/18 07/07/18 07/07/18 06:59 14:59 22:59 Intake Total 120 Output Total 500 200 Balance -500 -80 Intake: Oral 120 Output: Urine 500 200 Other: Voiding Method Urinal # Voids 2 200 # Bowel Movements 0 Weight 64.8 kg - Constitutional General appearance: average body habitus, cooperative, no acute distress - EENT Eyes: anicteric sclerae, EOMI, PERRLA, dentition normal, normal appearance ENT: NA/AT, normal oropharynx - Neck Neck: normal ROM - Respiratory Respiratory: bilateral: CTA, negative: diminished, dullness, rales, rhonchi - Cardiovascular Rhythm: regular Heart sounds: normal: S1, S2 Abnormal Heart Sounds: no systolic murmur, no diastolic murmur, no rub, no S3 Gallop, no S4 Gallop, no click, no other - Gastrointestinal General gastrointestinal: normal bowel sounds, soft - Integumentary Integumentary: decreased turgor, normal, normal turgor - Neurologic Neurologic: CNII-XII intact - Musculoskeletal Musculoskeletal: generalized weakness - Psychiatric Psychiatric: A&O x's 3, appropriate affect, intact judgment & insight Results CBC & Chem 7: 07/06/18 15:05 07/06/18 15:05 Labs: Abnormal Lab Results - Last 24 Hours (Table) 07/06/18 07/06/18 07/07/18 Range/Units 20:11 21:11 03:31 POC Glucose (mg/dL) 224 H (75-99) mg/dL Total Creatine Kinase 1238 H* 1094 H* (55-170) U/L CK-MB (CK-2) 30.9 H 30.9 H (0.0-2.4) ng/mL Troponin I 0.232 H* 0.141 H* (0.000-0.034) ng/mL HDL Cholesterol (40-60) mg/dL Calcium Oxalate Crystal (None) /hpf Hyaline Casts (0-2) /lpf 07/07/18 07/07/18 07/07/18 Range/Units 03:31 06:28 11:43 POC Glucose (mg/dL) 131 H 127 H (75-99) mg/dL Total Creatine Kinase (55-170) U/L CK-MB (CK-2) (0.0-2.4) ng/mL Troponin I (0.000-0.034) ng/mL HDL Cholesterol 38 L (40-60) mg/dL Calcium Oxalate Crystal (None) /hpf Hyaline Casts (0-2) /lpf 07/07/18 07/07/18 Range/Units 15:40 16:54 POC Glucose (mg/dL) 154 H (75-99) mg/dL Total Creatine Kinase (55-170) U/L CK-MB (CK-2) (0.0-2.4) ng/mL Troponin I (0.000-0.034) ng/mL HDL Cholesterol (40-60) mg/dL Calcium Oxalate Crystal Moderate H (None) /hpf Hyaline Casts 4 H (0-2) /lpf Microbiology - Last 24 Hours (Table) 07/06/18 15:05 Blood Culture - Preliminary Blood No Growth after 24 hours Laboratory Results WBC 9.8 k/uL (3.8-10.6) 07/06/18 15:05 RBC 3.91 m/uL (4.30-5.90) L 07/06/18 15:05 Hgb 12.5 gm/dL (13.0-17.5) L 07/06/18 15:05 Hct 39.8 % (39.0-53.0) 07/06/18 15:05 MCV 101.9 fL (80.0-100.0) H 07/06/18 15:05 MCH 31.9 pg (25.0-35.0) 07/06/18 15:05 MCHC 31.3 g/dL (31.0-37.0) 07/06/18 15:05 RDW 13.8 % (11.5-15.5) 07/06/18 15:05 Plt Count 168 k/uL (150-450) 07/06/18 15:05 Neutrophils % 89 % 07/06/18 15:05 Lymphocytes % 5 % 07/06/18 15:05 Monocytes % 4 % 07/06/18 15:05 Eosinophils % 1 % 07/06/18 15:05 Basophils % 0 % 07/06/18 15:05 Neutrophils # 8.7 k/uL (1.3-7.7) H 07/06/18 15:05 Lymphocytes # 0.4 k/uL (1.0-4.8) L 07/06/18 15:05 Monocytes # 0.4 k/uL (0-1.0) 07/06/18 15:05 Eosinophils # 0.1 k/uL (0-0.7) 07/06/18 15:05 Basophils # 0.0 k/uL (0-0.2) 07/06/18 15:05 Macrocytosis Slight 07/06/18 15:05 PT 22.7 sec (9.0-12.0) H 07/06/18 15:05 INR 2.3 (<1.2) H 07/06/18 15:05 APTT 36.8 sec (22.0-30.0) H 07/06/18 15:05 Sodium 139 mmol/L (137-145) 07/06/18 15:05 Potassium 4.7 mmol/L (3.5-5.1) 07/06/18 15:05 Chloride 100 mmol/L (98-107) 07/06/18 15:05 Carbon Dioxide 29 mmol/L (22-30) 07/06/18 15:05 Anion Gap 10 mmol/L 07/06/18 15:05 BUN 33 mg/dL (9-20) H 07/06/18 15:05 Creatinine 1.27 mg/dL (0.66-1.25) H 07/06/18 15:05 Est GFR (CKD-EPI)AfAm 62 (>60 ml/min/1.73 sqM) 07/06/18 15:05 Est GFR (CKD-EPI)NonAf 54 (>60 ml/min/1.73 sqM) 07/06/18 15:05 Glucose 76 mg/dL (74-99) 07/06/18 15:05 POC Glucose (mg/dL) 154 mg/dL (75-99) H 07/07/18 16:54 POC Glu Monument Installer ID Evelina Thornton 07/07/18 16:54 Calcium 9.2 mg/dL (8.4-10.2) 07/06/18 15:05 Total Bilirubin 0.8 mg/dL (0.2-1.3) 07/06/18 15:05 AST 67 U/L (17-59) H 07/06/18 15:05 ALT 38 U/L (21-72) 07/06/18 15:05 Alkaline Phosphatase 70 U/L (38-126) 07/06/18 15:05 Total Creatine Kinase 1094 U/L (55-170) H* 07/07/18 03:31 CK-MB (CK-2) 30.9 ng/mL (0.0-2.4) H 07/07/18 03:31 CK-MB (CK-2) Rel Index 2.8 07/07/18 03:31 Troponin I 0.141 ng/mL (0.000-0.034) H* 07/07/18 03:31 NT-Pro-B Natriuret Pep 2500 pg/mL 07/06/18 15:05 Total Protein 6.7 g/dL (6.3-8.2) 07/06/18 15:05 Albumin 3.5 g/dL (3.5-5.0) 07/06/18 15:05 Triglycerides 71 mg/dL (<150) 07/07/18 03:31 Cholesterol 119 mg/dL (<200) 07/07/18 03:31 LDL Cholesterol, Calc 67 mg/dL (0-99) 07/07/18 03:31 HDL Cholesterol 38 mg/dL (40-60) L 07/07/18 03:31 Urine Color Yellow 07/07/18 15:40 Urine Appearance Turbid (Clear) 07/07/18 15:40 Urine pH 5.0 (5.0-8.0) 07/07/18 15:40 Ur Specific [place] 1.012 (1.001-1.035) 07/07/18 15:40 Urine Protein Negative (Negative) 07/07/18 15:40 Urine Glucose (UA) Negative (Negative) 07/07/18 15:40 Urine Ketones Negative (Negative) 07/07/18 15:40 Urine Blood Negative (Negative) 07/07/18 15:40 Urine Nitrite Negative (Negative) 07/07/18 15:40 Urine Bilirubin Negative (Negative) 07/07/18 15:40 Urine Urobilinogen <2.0 mg/dL (<2.0) 07/07/18 15:40 Ur Leukocyte Esterase Negative (Negative) 07/07/18 15:40 Urine WBC <1 /hpf (0-5) 07/07/18 15:40 Calcium Oxalate Crystal Moderate /hpf (None) H 07/07/18 15:40 Hyaline Casts 4 /lpf (0-2) H 07/07/18 15:40 Digoxin 1.3 ng/mL 07/06/18 15:05 Influenza Type A RNA Not Detected (Not Detectd) 07/07/18 15:15 Influenza Type B (PCR) Not Detected (Not Detectd) 07/07/18 15:15 Thrombosis Risk Factor Assmnt - DVT/VTE Prophylaxis DVT/VTE Prophylaxis: Pharmacologic Prophylaxis ordered - Choose All That Apply Each Risk Factor Represents 2 Points: Patient confined to bed Each Risk Factor Represents 3 Points: Age 75 years or older, History of DVT/PE Thrombosis Risk Factor Assessment Total Risk Factor Score: 8 Thrombosis Risk Factor Assessment Level: High Risk Assessment and Plan Plan: 1. Atypical chest pain accompanied by pulmonary symptoms, troponin was elevated for which cardiology has been consulted, c, rise in troponin consistent with acute coronary syndrome, echocardiogram requested next 2. COPD with pulmonary fibrosis with exacerbation, acute rhonchitis exacerbation,, patient is immunosuppressed secondary to RA, started on nebulized albuterol Atrovent, Solu Medrol 60 mg every 6 hours, doxycycline 100 mg twice a day and discontinue Bactrim DS secondary to renal sufficiency, would try to get sputum culture if able 3Long-term anticoagulation coumadin, inr checks 4 Chronic pain secondary to RA, on fentanyl patch and gabapentin 300 mg 3 times a day Flexeril no change 5 Rheumatoid arthritis on Plaquenil,, chronic pain with opiates long-term prednisone 10 mg daily. 6. Small left thigh abscess, this has been drained by ER she days ago, cultures are currently pending, discontinue Bactrim DS secondary to renal creatinine elevation, start doxycycline next 7. Acute renal insufficiency underlying CK D stage III 2, admitting creatinine 1.27 baseline 0.7. Nephrotoxins to be avoided, Bactrim discontinued, 8.. Random blood sugars, last A1c 5.22 December 2017 Accu-Cheks to be done 9. Rhabdomyolysis, most likely secondary to underlying rheumatologic disease, IV hydration, avoid statins, Lasix 20 mg daily repeat CPK in a.m. maintain IV hydration saline 50 mL an hour 10. Barnes without any obstructive pathology 11. Diastolic CHF most likely chronic, BNP elevated, echocardiogram shows EF 50 55%, mild TR and mild MR right ventricle systolic pressure 26 moderate aortic stenosis Lasix 20 mg daily 12. Moderate aortic stenosis, this would be monitored by cardiology
--- NOTE | 2018-07-07 18:52 | CONS ---
CONSULTATION This is a 78-year-old male who presented to the emergency department with complaints of chest congestion, cough and rattling in his chest with some difficulty breathing. In addition, the patient states he was very weak and had difficulty transferring from his bed to his wheelchair. For that reason, the patient came into the emergency room to be evaluated. I have seen the patient for many years. He does have asbestosis and he also has rheumatoid arthritis-induced pulmonary fibrosis. Typically though, his lung situation is relatively stable and he does not really admit to much in the way of shortness of breath on a regular basis. Anyway, the cough, chest congestion and shortness of breath seem to be a relatively new process. In addition to that, he was having significant weakness. The patient denied any chest pain or chest discomfort. There was no fever or chill. No urinary complaints. No GI issues. The patient was admitted through the emergency department with a diagnosis of shortness of breath. Likely the patient has a purulent tracheobronchitis, although he cannot really cough up much phlegm. He states it stays to the back of his throat. The patient feels a bit better today than he did yesterday when he came into the emergency room. I talked with him and his daughter today in the room. PAST MEDICAL HISTORY: His past medical history includes: 1. Atrial fibrillation. 2. Deep venous thrombosis. 3. DJD. 4. Rheumatoid arthritis. 5. Asbestosis. 6. Hiatal hernia. 7. Leg abscess which was drained the day before he got admitted in the emergency room. 8. Chronically low blood pressure. 9. Kidney stones. 10.Stomach ulcer. SURGICAL HISTORY: Surgical history includes, among other things: 1. Appendectomy. 2. Back surgery. 3. Heart catheterization. 4. Joint replacement. 5. Tonsillectomy. 6. He has had multiple surgical procedures on his limbs, hands and so forth for his rheumatoid disease. 7. He has also had lithotripsy x2 for kidney stones. SOCIAL HISTORY: Positive for previous tobacco use. Denies any alcohol use or illicit drug use. FAMILY HISTORY: Positive for cancer, pacemaker insertion and underlying cardiac disease. OCCUPATIONAL HISTORY: Noncontributory. REVIEW OF SYSTEMS: CONSTITUTIONAL: Weakness. NEUROLOGIC: Negative. HEENT: Negative. CARDIOVASCULAR: Negative. PULMONARY: Shortness of breath, chest congestion, rattling in his chest, difficulty breathing. GI/: Negative. RHEUMATOLOGIC/IMMUNOLOGIC: Negative. ENDOCRINOLOGIC: Negative. DERMATOLOGIC: Negative. PHYSICAL EXAMINATION: Current vital signs are reviewed. Temperature 96.3, heart rate 88, respiratory rate 18, blood pressure 149/68, mean 95, room-air saturation 91%. He does not appear to be in any respiratory distress at this time. HEENT examination is grossly unremarkable. Mucous membranes are moist. No oral lesions. NECK: Supple. Full range of motion. No adenopathy or thyromegaly. Neck veins are flat. Cardiovascular examination reveals regular rhythm and rate. S1, S2 normal. He does not appear to be in atrial fibrillation at this time. A soft systolic murmur is noted. No S3-S4. Lungs reveal bibasilar crackles. His breath sounds are coarse and raspy. On forced maneuver, he does wheeze. There are crackles at both bases. No wheezes are noted. Breath sounds are equal bilaterally but diminished throughout. ABDOMEN: Soft. Bowel sounds are heard. Extremities are intact. There are multiple deformities from his rheumatoid arthritis. Skin shows multiple areas of ecchymosis. Neurologic examination is brief but nonfocal. LAB DATA: Reviewed. White count 9.8, hemoglobin 12.5, hematocrit 39.8, platelet count normal. PT 22.7, INR 2.3, PTT 36.8. Sodium, potassium, chloride, CO2 all normal. BUN and creatinine were 33 and 1.27. CKs were 1238 and 1094, respectively. CK-MBs were 30.9 and 30.9. Troponins were 0.232 and 1.141. N-terminal proBNP was 2500. Digoxin level is 1.3. Chest x-ray showed primarily chronic changes with some calcifications of the pleura on the left lung laterally. This is from his asbestos exposure. He has got some diffuse interstitial changes, predominantly in the lower lobes. Everything looks chronic and long-standing, and nothing seems to be acute as I recall. ASSESSMENT: 1. Probable purulent tracheobronchitis complicating the patient's known history of asbestosis and rheumatoid arthritis-associated pulmonary fibrosis. 2. History of atrial fibrillation, although the patient is currently in sinus rhythm. 3. History of severe rheumatoid arthritis with rheumatoid arthritis-associated deformities. 4. History of deep venous thrombosis. 5. History of degenerative joint disease. 6. History of hiatal hernia. 7. History of colitis. 8. Previous history of kidney stones with lithotripsy x2. 9. Previous methicillin-resistant Staphylococcus aeruginosa infection. 10.Multiple previous surgical procedures for his rheumatoid disease. 11.Multiple other medical problems and comorbidities. PLAN: Medications are reviewed. The patient probably would benefit from breathing treatments, some steroids and some antibiotics. It does not appear to be a cardiac issue, in my opinion, at this time. We will continue to follow. Prognosis is guarded. I will review the medications and make changes where appropriate. MMODL / IJN: [id number] /
[2018-07-07] MEDS: SODIUM CHLORIDE 0.9% 1,000 ML IV SCH (19:09)
[2018-07-07 20:53] LABS: Glucose,Whole Blood 141 mg/dL (75-99)
[2018-07-07] MEDS: Acetaminophen-Codeine 300-30mg TAB PO PRN (21:48)
[2018-07-07] MEDS: CYCLOBENZAPRINE 5 MG TAB PO SCH (21:50)
[2018-07-07] MEDS: DOXYCYCLINE 100 MG CAP PO SCH (21:53)
[2018-07-08] MEDS: MELATONIN 3 MG TABLET PO SCH ×2 (02:09→20:06)
[2018-07-08] MEDS: MAG HYDROX/AL HYDROX/SIMETH 30 ML CUP PO PRN (02:11)
[2018-07-08] MEDS: methylPREDNISolone SOD SUCCI 40 MG/ML 1 ML VIAL IV SCH ×2 (06:17→12:52)
[2018-07-08 06:23] LABS: Glucose,Whole Blood 122 mg/dL (75-99)
[2018-07-08 07:26] LABS: HCT 34.7 % (39.0-53.0); HGB 11.1 gm/dL (13.0-17.5); MCH 33.1 pg (25.0-35.0); MCV 103.4 fL (80.0-100.0); Macrocytosis Slight; Mean Platelet Volume 7.2; Platelet Count 171 k/uL (150-450); RBC 3.36 m/uL (4.30-5.90); RDW 13.8 % (11.5-15.5); WBC 14.8 k/uL (3.8-10.6)
[2018-07-08 07:38] LABS: Anion Gap 8 mmol/L; Blood Urea Nitrogen 38 mg/dL (9-20); Calcium 8.6 mg/dL (8.4-10.2); Carbon Dioxide 25 mmol/L (22-30); Chloride 105 mmol/L (98-107); Glucose 119 mg/dL (74-99); Potassium 4.8 mmol/L (3.5-5.1); Sodium 138 mmol/L (137-145)
[2018-07-08 07:46] LABS: Creatine Kinase 1450 U/L (55-170)
[2018-07-08] MEDS: IPRATROPIUM-ALBUTEROL 3 ML NEB INHALATION SCH ×4 (07:50→19:02)
[2018-07-08] MEDS: CHOLECALCIFEROL 1,000 UNIT TAB PO SCH (08:30)
[2018-07-08] MEDS: DIGOXIN 125 MCG TAB PO SCH (08:30)
[2018-07-08] MEDS: FERROUS SULFATE 325 MG TAB PO SCH (08:30)
[2018-07-08] MEDS: GABAPENTIN 300 MG CAP PO SCH ×3 (08:30→20:06)
[2018-07-08] MEDS: FUROSEMIDE 20 MG TAB PO SCH (08:30)
[2018-07-08] MEDS: TAMSULOSIN 0.4 MG CAP.ER.24H PO SCH (08:30)
[2018-07-08] MEDS: LIDOCAINE 5% PATCH TOPICAL SCH (08:31)
[2018-07-08] MEDS: HYDROXYCHLOROQUINE SULFATE 200 MG TAB PO SCH (08:31)
[2018-07-08] MEDS: DOXYCYCLINE 100 MG CAP PO SCH ×2 (08:31→20:06)
[2018-07-08] MEDS ORDERED: ASPIRIN 81 MG PO SCH (09:00)
[2018-07-08 09:35] LABS: T4, Free (Free Thyroxine) 1.06 ng/dL (0.78-2.19)
[2018-07-08 11:44] LABS: Glucose,Whole Blood 106 mg/dL (75-99)
--- NOTE | 2018-07-08 13:11 | P.PN ---
Subjective Progress Note Date: 07/08/18 Principal diagnosis: Purulent tracheobronchitis, asbestosis, pulmonary fibrosis Progress note dated 07/08/2018 Patient was seen in evaluated again on selective care unit, patient came into the emergency department with complaints of difficulty breathing, chest congestion, weakness. Patient has underlying history of rheumatoid arthritis related pulmonary fibrosis and asbestosis. Patient is being treated for purulent tracheobronchitis. Chest x-ray showed chronic changes with acute pulmonary process. He is afebrile, hemodynamically stable, currently on room air with a pulse ox of 96%. Current antibiotic coverage includes doxycycline, patient is on IV steroids that are being tapered, and nebulized bronchodilators. On today's exam patient states he is feeling better, breathing easier, lung sounds reveal a few scattered rhonchi over right lower lobe, otherwise no significant wheezing or congestion. Urine and blood cultures remain negative. No fever or chills. No worsening dyspnea. Objective - Vital Signs Vital signs: Vital Signs Temp 96.9 F L 07/08/18 08:00 Pulse 100 07/08/18 11:26 Resp 18 07/08/18 08:00 BP 139/66 07/08/18 08:00 Pulse Ox 96 07/08/18 08:00 Intake & Output 07/07/18 07/08/18 07/08/18 18:59 06:59 18:59 Intake Total 240 520 Output Total 200 700 500 Balance 40 -700 20 Weight 65 kg Intake: Intake, IV Titration 400 Amount Sodium Chloride 0.9% 1, 400 000 ml @ 50 mls/hr IV . Q20H [facility] Rx#:[id number] Oral 240 120 Output: Urine 200 700 500 Other: Voiding Method Urinal # Voids 200 2 # Bowel Movements 0 0 0 - Exam GENERAL EXAM: Alert, pleasant 78-year-old elderly frail white male, comfortable in no apparent distress. HEAD: Normocephalic/atraumatic. EYES: Normal reaction of pupils, equal size. Conjunctiva pink, sclera white. NOSE: Clear with pink turbinates. THROAT: No erythema or exudates. NECK: No masses, no JVD, no thyroid enlargement, no adenopathy. CHEST: No chest wall deformity. Symmetrical expansion. LUNGS: Image breath sounds with scattered rhonchi over right lower lobe CVS: Regular rate and rhythm, normal S1 and S2, no gallops, no murmurs, no rubs ABDOMEN: Soft, nontender. No hepatosplenomegaly, normal bowel sounds, no guarding or rigidity. EXTREMITIES: No clubbing, no edema, no cyanosis, 2+ pulses and upper and lower extremities. Patient has evidence of extensive joint deformity in his bilateral hands with ulnar drift, enlargement of proximal interphalangeal joints. Patient has chronic discoloration of skin on his hands and arms MUSCULOSKELETAL: Muscle strength and tone normal. SPINE: No scoliosis or deformity SKIN: No rashes CENTRAL NERVOUS SYSTEM: Alert and oriented -3. No focal deficits, tone is normal in all 4 extremities. PSYCHIATRIC: Alert and oriented -3. Appropriate affect. Intact judgment and insight. - Labs CBC & Chem 7: 07/08/18 06:43 07/08/18 06:43 Labs: Abnormal Lab Results - Last 24 Hours (Table) 07/07/18 07/07/18 07/07/18 Range/Units 15:40 16:54 20:52 WBC (3.8-10.6) k/uL RBC (4.30-5.90) m/uL Hgb (13.0-17.5) gm/dL Hct (39.0-53.0) % MCV (80.0-100.0) fL BUN (9-20) mg/dL Glucose (74-99) mg/dL POC Glucose (mg/dL) 154 H 141 H (75-99) mg/dL Creatine Kinase (55-170) U/L TSH (0.465-4.680) mIU/L Calcium Oxalate Crystal Moderate H (None) /hpf Hyaline Casts 4 H (0-2) /lpf 07/08/18 07/08/18 07/08/18 Range/Units 06:22 06:43 06:43 WBC 14.8 H (3.8-10.6) k/uL RBC 3.36 L (4.30-5.90) m/uL Hgb 11.1 L (13.0-17.5) gm/dL Hct 34.7 L (39.0-53.0) % MCV 103.4 H (80.0-100.0) fL BUN 38 H (9-20) mg/dL Glucose 119 H (74-99) mg/dL POC Glucose (mg/dL) 122 H (75-99) mg/dL Creatine Kinase 1450 H* (55-170) U/L TSH <0.015 L (0.465-4.680) mIU/L Calcium Oxalate Crystal (None) /hpf Hyaline Casts (0-2) /lpf 07/08/18 Range/Units 11:19 WBC (3.8-10.6) k/uL RBC (4.30-5.90) m/uL Hgb (13.0-17.5) gm/dL Hct (39.0-53.0) % MCV (80.0-100.0) fL BUN (9-20) mg/dL Glucose (74-99) mg/dL POC Glucose (mg/dL) 106 H (75-99) mg/dL Creatine Kinase (55-170) U/L TSH (0.465-4.680) mIU/L Calcium Oxalate Crystal (None) /hpf Hyaline Casts (0-2) /lpf Microbiology - Last 24 Hours (Table) 07/07/18 15:40 Urine Culture - Preliminary Urine,Clean Catch 07/06/18 15:05 Blood Culture - Preliminary Blood No Growth after 24 hours Assessment and Plan Plan: Assessment: #1. Purulent tracheobronchitis, and secondary dyspnea, chest congestion, weakness #2. Rheumatoid arthritis related pulmonary fibrosis #3. Asbestos related lung disease #4. Paroxysmal atrial fibrillation, currently in sinus rhythm #5. Severe rheumatoid arthritis with rheumatoid arthritis associated deformities #6. History of DVT #7. History of degenerative joint disease #8. History of hiatal hernia #9. History of colitis #10. History of kidney stones with lithotripsy #11. Previous MRSA little related infection Plan: Continue current antibiotic coverage. Patient is improving, steroids are being tapered, continue nebulized bronchodilators, no acute distress, he is afebrile, vital signs are stable. From pulmonary perspective patient could be considered for discharge in next 24 hours provided he continues to improve. I performed a history & physical examination of the patient and discussed their management with my nurse practitioner, Pina Molina. I reviewed the nurse practitioner's note and agree with the documented findings and plan of care. Lung sounds are positive for a few scattered rhonchi over right lower lobe. The findings and the impression was discussed with the patient. I attest to the documentation by the nurse practitioner. Time with Patient: Less than 30
[2018-07-08 13:36] LABS: INR 3.7 (<1.2); Prothrombin Time 35.5 sec (9.0-12.0)
[2018-07-08 14:43] LABS: Hemoglobin A1C 5.4 % (4.0-6.0)
--- NOTE | 2018-07-08 14:56 | P.PN ---
Subjective Progress Note Date: 07/08/18 This is a 78-year-old gentleman who follows regularly with Dr. Michelle Stock in the office. He has a known history of severe rheumatoid arthritis, paroxysmal atrial fibrillation, hypertension, hyperlipidemia, pulmonary fibrosis. He also has known aortic stenosis. Patient did have a cardiac catheterization performed in 2010 which did not reveal any significant obstructive coronary artery disease. He presents to the hospital on this occasion with symptoms of feeling weak, patient also states he had an episode of shortness of breath and shaking, his family was unable to move him from his chair to another chair and hence the patient was brought to the emergency room for further evaluation. Patient did have an echocardiogram with Doppler study performed here in September which revealed a normal left ventricular systolic function, moderate aortic stenosis. Chest x-ray on arrival here revealed chronic changes without acute pulmonary process. EKG showed a normal sinus rhythm with no acute changes. His blood pressure on arrival here 78/50, with a heart rate in the 50s, 90% on room air. Blood pressure this morning 117/60 with a heart rate in the 80s, 94% on room air. White blood cell count 9.8, hemoglobin 12.5, platelet count 168. INR 2.3. Sodium 139, potassium 4.7, BUN 33, creatinine 1.2. CK 977, 1238, 1094, MB 21.2, 30.9, 30.9. Troponin 0.29, 0.23, 0.14. BNP level 2500. Lanoxin level 1.3. At the time of my examination this morning, patient is sitting comfortably in bed, no complaints. He denies any chest discomfort. [id number] Patient seen and examined this morning, sitting up in the chair at bedside. Currently on antibiotics as ordered by primary care. Blood pressure 138/60 with a heart rate in the 90s, 96% on room air. White blood cell count 14.8, hemoglobin 11.1, platelet count 171. Sodium 138, potassium 4.8, BUN 38, creatinine 1.0. Objective - Vital Signs Vital signs: Vital Signs Temp 97.3 F L 07/08/18 12:00 Pulse 100 07/08/18 12:00 Resp 18 07/08/18 12:00 BP 139/66 07/08/18 12:00 Pulse Ox 96 07/08/18 12:00 Intake & Output 07/07/1818 07/08/18 18:59 06:59 18:59 Intake Total 240 640 Output Total 200 700 900 Balance 40 -700 -260 Weight 65 kg Intake: Intake, IV Titration 400 Amount Sodium Chloride 0.9% 1, 400 000 ml @ 50 mls/hr IV . Q20H [facility] Rx#:[id number] Oral 240 240 Output: Urine 200 700 900 Other: Voiding Method Urinal # Voids 200 2 # Bowel Movements 0 0 0 - Exam PHYSICAL EXAMINATION: GENERAL: 78-year-old gentleman in no acute distress at the time of my examination HEENT: Head is atraumatic, normocephalic. Pupils equal, round. Sclera anicteric. Conjunctiva are clear. Mucous membranes of the mouth are moist. Neck is supple. There is no elevated jugular venous pressure. No carotid bruit is heard. HEART EXAMINATION: Heart S1 and S2 systolic ejection murmur is heard. CHEST EXAMINATION: Lungs reveal scattered coarse rhonchi throughout. ABDOMEN: Soft, nontender. Bowel sounds are heard. No organomegaly noted. EXTREMITIES: 2+ peripheral pulses with no evidence of peripheral edema and no calf tenderness noted. Severe disfiguration from rheumatoid arthritis. NEUROLOGIC patient is awake, alert and oriented 3. - Labs CBC & Chem 7: 07/08/18 06:43 07/08/18 06:43 Labs: Abnormal Lab Results - Last 24 Hours (Table) 07/07/18 07/07/18 07/07/18 Range/Units 15:40 16:54 20:52 WBC (3.8-10.6) k/uL RBC (4.30-5.90) m/uL Hgb (13.0-17.5) gm/dL Hct (39.0-53.0) % MCV (80.0-100.0) fL PT (9.0-12.0) sec INR (<1.2) BUN (9-20) mg/dL Glucose (74-99) mg/dL POC Glucose (mg/dL) 154 H 141 H (75-99) mg/dL Creatine Kinase (55-170) U/L TSH (0.465-4.680) mIU/L Calcium Oxalate Crystal Moderate H (None) /hpf Hyaline Casts 4 H (0-2) /lpf 07/08/18 07/08/1818 Range/Units 06:22 06:43 06:43 WBC 14.8 H (3.8-10.6) k/uL RBC 3.36 L (4.30-5.90) m/uL Hgb 11.1 L (13.0-17.5) gm/dL Hct 34.7 L (39.0-53.0) % MCV 103.4 H (80.0-100.0) fL PT (9.0-12.0) sec INR (<1.2) BUN 38 H (9-20) mg/dL Glucose 119 H (74-99) mg/dL POC Glucose (mg/dL) 122 H (75-99) mg/dL Creatine Kinase 1450 H* (55-170) U/L TSH <0.015 L (0.465-4.680) mIU/L Calcium Oxalate Crystal (None) /hpf Hyaline Casts (0-2) /lpf 07/08/18 07/08/18 Range/Units 06:43 11:19 WBC (3.8-10.6) k/uL RBC (4.30-5.90) m/uL Hgb (13.0-17.5) gm/dL Hct (39.0-53.0) % MCV (80.0-100.0) fL PT 35.5 H (9.0-12.0) sec INR 3.7 H (<1.2) BUN (9-20) mg/dL Glucose (74-99) mg/dL POC Glucose (mg/dL) 106 H (75-99) mg/dL Creatine Kinase (55-170) U/L TSH (0.465-4.680) mIU/L Calcium Oxalate Crystal (None) /hpf Hyaline Casts (0-2) /lpf Microbiology - Last 24 Hours (Table) 07/07/18 15:40 Urine Culture - Preliminary Urine,Clean Catch 07/06/18 15:05 Blood Culture - Preliminary Blood No Growth after 24 hours Assessment and Plan Plan: Assessment and plan #1 symptoms of fairly sudden onset of weakness with associated shortness of breath and shaking. Chest x-ray showed chronic changes without any acute pulmonary process. BNP level 2500. #2 abnormal CK-MBs, with abnormality in troponin, not consistent with acute coronary syndrome, EKG shows normal sinus rhythm with no acute changes. Has been noted on prior admission that the patient had similar abnormality in troponin. Cardiac catheterization performed in 2010 revealed normal coronary arteries. #3 severe rheumatoid arthritis with chronic pain #4 paroxysmal atrial fibrillation on Coumadin for anticoagulation #5 hypertension #6 hyperlipidemia #7 pulmonary fibrosis Plan From cardiology's perspective, we'll recommend to continue the patient on his current medications. Stable from cardiology's perspective. DNP note has been reviewed, I agree with a documented findings and plan of care. Patient was seen and examined.
[2018-07-08] MEDS: SODIUM CHLORIDE 0.9% 1,000 ML IV SCH (16:06)
[2018-07-08 16:22] LABS: Glucose,Whole Blood 133 mg/dL (75-99)
[2018-07-08] MEDS: WARFARIN 1 MG TAB PO SCH (18:00)
[2018-07-08] MEDS: Acetaminophen-Codeine 300-30mg TAB PO PRN (18:01)
[2018-07-08] MEDS: BUDESONIDE 0.5 MG/2 ML NEBU INHALATION SCH (19:02)
[2018-07-08] MEDS: CYCLOBENZAPRINE 5 MG TAB PO SCH (20:06)
[2018-07-08 20:39] LABS: Glucose,Whole Blood 128 mg/dL (75-99)
[2018-07-08] MEDS ORDERED: methylPREDNISolone SOD SUCCI 40 MG/ML 1 ML VIAL IV SCH (21:00)
[2018-07-08 23:35] VITALS: RESP 16
[2018-07-09 06:11] LABS: Glucose,Whole Blood 111 mg/dL (75-99)
[2018-07-09 08:18] LABS: INR 4.5 (<1.2); Prothrombin Time 43.1 sec (9.0-12.0)
[2018-07-09] MEDS: BUDESONIDE 0.5 MG/2 ML NEBU INHALATION SCH ×2 (08:21→11:12)
[2018-07-09] MEDS: IPRATROPIUM-ALBUTEROL 3 ML NEB INHALATION SCH ×2 (08:21→11:11)
[2018-07-09] MEDS ORDERED: predniSONE 20 MG TAB PO SCH (09:00)
[2018-07-09] MEDS: HYDROXYCHLOROQUINE SULFATE 200 MG TAB PO SCH (09:02)
[2018-07-09] MEDS: DOXYCYCLINE 100 MG CAP PO SCH (09:02)
[2018-07-09] MEDS: TAMSULOSIN 0.4 MG CAP.ER.24H PO SCH (09:02)
[2018-07-09] MEDS: DIGOXIN 125 MCG TAB PO SCH (09:02)
[2018-07-09] MEDS: GABAPENTIN 300 MG CAP PO SCH (09:02)
[2018-07-09] MEDS: LIDOCAINE 5% PATCH TOPICAL SCH (09:02)
[2018-07-09] MEDS: FUROSEMIDE 20 MG TAB PO SCH (09:02)
[2018-07-09] MEDS: Acetaminophen-Codeine 300-30mg TAB PO PRN (09:03)
[2018-07-09] MEDS: SODIUM CHLORIDE 0.9% 1,000 ML IV SCH (09:03)
--- NOTE | 2018-07-09 10:41 | P.PN ---
Subjective Progress Note Date: 07/08/18 77 years old male patient of Dr. Jake Stock, with past medical history of severely debilitating rheumatoid arthritis with loss of function of his hands bilaterally, history of atrial fibrillation, BPH, degenerative disc disease presents pulmonary fibrosis, asbestosis, moderate aortic stenosis, asbestosis admitted to the emergency room secondary to weakness, blood pressure was 78/50, patient also has had cough congestion, since Saturday, weak and has been unable to transfers from chair to lift chair, was started on Bactrim double strength 2 tabs twice a day from the emergency room yesterday secondary to an abscess in the left eye. Patient also is had wheezing and coughing, patient has nebulizer treatments which is not helping, and no O2 requirements at home. Patient has been wheelchair bound secondary to severe RA with multiple rheumatoid nodules and deformities Status post cardiac cath performed in 2010 which failed to reveal any obstructive disease, presenting with a slightly elevated troponin, cardiology has been consulted secondary to the mild troponin elevation, BNP was 2500 troponin on admission was 0.232, 0.141, CK 1238, 1094 CK index 2.5/2.8. Urinalysis shows calcium oxalate crystals, urine WBC of less than 1 influenza test negative 07/08: Patient is feeling improved from yesterday. Breathing is improved. Patient is followed by pulmonary medicine and cardiology. We will plan to decrease Solu-Medrol and start prednisone in the morning. Cardiology is recommending continuing current medications. Acute coronary syndrome has been ruled out. Patient lives at home with his . He does have a caregiver in place 8-10 hours per day. Possible discharge by tomorrow Review Of Systems: Constitutional: No fever, no chills, no night sweats. No weight change. No weakness, fatigue or lethargy. No daytime sleepiness. EENT: No headache. No blurred vision or double vision, no loss of vision. No loss of Hearing, no ringing in the ears, no dizziness. No nasal drainage or congestion. No epistaxis. No sore throat. Lungs: Reports shortness of breath, reports cough, no sputum production. No wheezing. Cardiovascular: No chest pain, no lower extremity edema. No palpitations. No paroxysmal nocturnal dyspnea. No orthopnea. No lightheadedness or dizziness. No syncopal episodes. Abdominal: No abdominal pain. No nausea, vomiting. No diarrhea. No constipation. No bloody or tarry stools.. No loss of appetite. Genitourinary: No dysuria, increased frequency, urgency. No urinary retention. Musculoskeletal: No myalgias. No muscle weakness, no gait dysfunction, no frequent falls. No back pain. No neck pain. Integumentary: No wounds, no lesions. No rash or pruritus. No unusual bruising. No change in hair or nails. Neurologic: No aphasia. No facial droop. No change in mentation. No head injury. No headache. No paralysis. No paresthesia. Psychiatric: No depression. No anxiety. No mood swings. Endocrine: No abnormal blood sugars. No weight change. No excessive sweating or thirst. Objective - Vital Signs Vital signs: Vital Signs Temp 96.9 F L 07/08/18 08:00 Pulse 100 07/08/18 11:26 Resp 18 07/08/18 08:00 BP 139/66 07/08/18 08:00 Pulse Ox 96 07/08/18 08:00 Intake & Output 07/07/18 07/08/18 07/08/18 18:59 06:59 18:59 Intake Total 240 520 Output Total 200 700 500 Balance 40 -700 20 Weight 65 kg Intake: Intake, IV Titration 400 Amount Sodium Chloride 0.9% 1, 400 000 ml @ 50 mls/hr IV . Q20H [facility] Rx#:[id number] Oral 240 120 Output: Urine 200 700 500 Other: Voiding Method Urinal # Voids 200 2 # Bowel Movements 0 0 0 - Exam General appearance: average body habitus, cooperative, no acute distress, patient resting in recliner, daughter is at bedside. - EENT Eyes: anicteric sclerae, EOMI, PERRLA, dentition normal, normal appearance ENT: NA/AT, normal oropharynx - Neck Neck: normal ROM - Respiratory Respiratory: bilateral: CTA, negative: diminished, dullness, rales, rhonchi - Cardiovascular Rhythm: regular Heart sounds: normal: S1, S2 Abnormal Heart Sounds: no systolic murmur, no diastolic murmur, no rub, no S3 Gallop, no S4 Gallop, no click, no other - Gastrointestinal General gastrointestinal: normal bowel sounds, soft - Integumentary Integumentary: decreased turgor, normal, normal turgor - Neurologic Neurologic: CNII-XII intact - Musculoskeletal Musculoskeletal: generalized weakness - Psychiatric Psychiatric: A&O x's 3, appropriate affect, intact judgment & insight - Labs CBC & Chem 7: 07/08/18 06:43 07/08/18 06:43 Labs: Abnormal Lab Results - Last 24 Hours (Table) 07/07/18 07/07/18 07/07/18 Range/Units 15:40 16:54 20:52 WBC (3.8-10.6) k/uL RBC (4.30-5.90) m/uL Hgb (13.0-17.5) gm/dL Hct (39.0-53.0) % MCV (80.0-100.0) fL BUN (9-20) mg/dL Glucose (74-99) mg/dL POC Glucose (mg/dL) 154 H 141 H (75-99) mg/dL Creatine Kinase (55-170) U/L TSH (0.465-4.680) mIU/L Calcium Oxalate Crystal Moderate H (None) /hpf Hyaline Casts 4 H (0-2) /lpf 07/08/18 07/08/18 07/08/18 Range/Units 06:22 06:43 06:43 WBC 14.8 H (3.8-10.6) k/uL RBC 3.36 L (4.30-5.90) m/uL Hgb 11.1 L (13.0-17.5) gm/dL Hct 34.7 L (39.0-53.0) % MCV 103.4 H (80.0-100.0) fL BUN 38 H (9-20) mg/dL Glucose 119 H (74-99) mg/dL POC Glucose (mg/dL) 122 H (75-99) mg/dL Creatine Kinase 1450 H* (55-170) U/L TSH <0.015 L (0.465-4.680) mIU/L Calcium Oxalate Crystal (None) /hpf Hyaline Casts (0-2) /lpf 07/08/18 Range/Units 11:19 WBC (3.8-10.6) k/uL RBC (4.30-5.90) m/uL Hgb (13.0-17.5) gm/dL Hct (39.0-53.0) % MCV (80.0-100.0) fL BUN (9-20) mg/dL Glucose (74-99) mg/dL POC Glucose (mg/dL) 106 H (75-99) mg/dL Creatine Kinase (55-170) U/L TSH (0.465-4.680) mIU/L Calcium Oxalate Crystal (None) /hpf Hyaline Casts (0-2) /lpf Microbiology - Last 24 Hours (Table) 07/07/18 15:40 Urine Culture - Preliminary Urine,Clean Catch 07/06/18 15:05 Blood Culture - Preliminary Blood No Growth after 24 hours Assessment and Plan Plan: 1. Atypical chest pain accompanied by pulmonary symptoms, acute coronary syndrome ruled out. Cardiology consult appreciated. 2. COPD with pulmonary fibrosis with exacerbation, acute rhonchitis exacerbation,, patient is immunosuppressed secondary to RA, started on nebulized albuterol Atrovent, Solu Medrol decreased and transitioned to oral prednisone, doxycycline 100 mg twice a day and discontinue Bactrim DS secondary to renal sufficiency. Pulmonary consult appreciated. 3. Paroxysmal atrial fibrillation. Long-term anticoagulation coumadin, inr checks 4. Chronic pain secondary to RA, on fentanyl patch and gabapentin 300 mg 3 times a day Flexeril no change 5. Rheumatoid arthritis on Plaquenil,, chronic pain with opiates long-term prednisone 10 mg daily. 6. Small left thigh abscess, this has been drained by ER she days ago, cultures are currently pending, discontinue Bactrim DS secondary to renal creatinine elevation, start doxycycline next 7. Acute renal insufficiency underlying CK D stage III 2, admitting creatinine 1.27 baseline 0.7. Nephrotoxins to be avoided, Bactrim discontinued, 8. Random blood sugars, last A1c 5.22 December 2017 Accu-Cheks to be done 9. Rhabdomyolysis, most likely secondary to underlying rheumatologic disease, IV hydration, avoid statins, Lasix 20 mg daily repeat CPK in a.m. maintain IV hydration saline 50 mL an hour 10. Barnes without any obstructive pathology 11. Chronic diastolic heart failure, BNP elevated, echocardiogram shows EF 50 55%, mild TR and mild MR right ventricle systolic pressure 26 moderate aortic stenosis Lasix 20 mg daily 12. Moderate aortic stenosis, this would be monitored by cardiology Discharge plan: Home tomorrow Impression and plan of care have been directed as dictated by the signing physician. Brianna Convery nurse practitioner acting as scribe for signing physician.
[2018-07-09 11:44] VITALS: TEMP 97.5
[2018-07-09 11:45] LABS: Glucose,Whole Blood 82 mg/dL (75-99)
--- NOTE | 2018-07-09 11:49 | P.PN ---
Subjective Progress Note Date: 07/09/18 Principal diagnosis: Purulent tracheobronchitis, asbestosis, pulmonary fibrosis Progress note dated 07/08/2018 Patient was seen in evaluated again on selective care unit, patient came into the emergency department with complaints of difficulty breathing, chest congestion, weakness. Patient has underlying history of rheumatoid arthritis related pulmonary fibrosis and asbestosis. Patient is being treated for purulent tracheobronchitis. Chest x-ray showed chronic changes with acute pulmonary process. He is afebrile, hemodynamically stable, currently on room air with a pulse ox of 96%. Current antibiotic coverage includes doxycycline, patient is on IV steroids that are being tapered, and nebulized bronchodilators. On today's exam patient states he is feeling better, breathing easier, lung sounds reveal a few scattered rhonchi over right lower lobe, otherwise no significant wheezing or congestion. Urine and blood cultures remain negative. No fever or chills. No worsening dyspnea. On 07/09/2018 patient seen in follow-up on selective care unit, sitting up in the recliner, in no acute distress, room air pulse ox 95%, patient is afebrile, hemodynamically stable, respirations are even and nonlabored. No fever, no chills, no worsening dyspnea, cultures negative. Lung sounds are positive for a few scattered rhonchi, current antibiotic coverage with doxycycline, bronchodilators, steroids have been transitioned to oral prednisone. Objective - Vital Signs Vital signs: Vital Signs Temp 97.5 F L 07/09/18 08:00 Pulse 100 07/09/18 11:27 Resp 16 07/09/18 03:23 BP 111/59 07/09/18 08:00 Pulse Ox 95 07/09/18 08:00 Intake & Output 07/08/18 07/09/18 07/09/18 18:59 06:59 18:59 Intake Total 760 240 Output Total 900 425 100 Balance -140 -425 140 Weight 65.5 kg Intake: Intake, IV Titration 400 Amount Sodium Chloride 0.9% 1, 400 000 ml @ 50 mls/hr IV . Q20H [facility] Rx#:[id number] Oral 360 240 Output: Urine 900 425 100 Other: Voiding Method Urinal # Voids 1 1 # Bowel Movements 0 0 - Exam GENERAL EXAM: Alert, pleasant 78-year-old elderly frail white male, comfortable in no apparent distress. HEAD: Normocephalic/atraumatic. EYES: Normal reaction of pupils, equal size. Conjunctiva pink, sclera white. NOSE: Clear with pink turbinates. THROAT: No erythema or exudates. NECK: No masses, no JVD, no thyroid enlargement, no adenopathy. CHEST: No chest wall deformity. Symmetrical expansion. LUNGS: breath sounds with scattered rhonchi over right lower lobe CVS: Regular rate and rhythm, normal S1 and S2, no gallops, no murmurs, no rubs ABDOMEN: Soft, nontender. No hepatosplenomegaly, normal bowel sounds, no guarding or rigidity. EXTREMITIES: No clubbing, no edema, no cyanosis, 2+ pulses and upper and lower extremities. Patient has evidence of extensive joint deformity in his bilateral hands with ulnar drift, enlargement of proximal interphalangeal joints. Patient has chronic discoloration of skin on his hands and arms MUSCULOSKELETAL: Muscle strength and tone normal. SPINE: No scoliosis or deformity SKIN: No rashes CENTRAL NERVOUS SYSTEM: Alert and oriented -3. No focal deficits, tone is normal in all 4 extremities. PSYCHIATRIC: Alert and oriented -3. Appropriate affect. Intact judgment and insight. - Labs CBC & Chem 7: 07/08/18 06:43 07/08/18 06:43 Labs: Abnormal Lab Results - Last 24 Hours (Table) 07/08/18 07/08/18 07/08/18 Range/Units 06:43 16:12 20:38 PT 35.5 H (9.0-12.0) sec INR 3.7 H (<1.2) POC Glucose (mg/dL) 133 H 128 H (75-99) mg/dL Creatine Kinase (55-170) U/L 07/09/18 07/09/18 07/09/18 Range/Units 06:08 07:26 07:26 PT 43.1 H (9.0-12.0) sec INR 4.5 H (<1.2) POC Glucose (mg/dL) 111 H (75-99) mg/dL Creatine Kinase 759 H (55-170) U/L Microbiology - Last 24 Hours (Table) 07/06/18 15:05 Blood Culture - Preliminary Blood No Growth after 48 hours Assessment and Plan Plan: Assessment: #1. Purulent tracheobronchitis, and secondary dyspnea, chest congestion, weakness #2. Rheumatoid arthritis related pulmonary fibrosis #3. Asbestos related lung disease #4. Paroxysmal atrial fibrillation, currently in sinus rhythm #5. Severe rheumatoid arthritis with rheumatoid arthritis associated deformities #6. History of DVT #7. History of degenerative joint disease #8. History of hiatal hernia #9. History of colitis #10. History of kidney stones with lithotripsy #11. Previous MRSA little related infection Plan: Patient remains stable, continues to improve, breathing easier, no distress, on room air, no fever or chills, vital signs are stable. Cultures are negative, from pulmonary perspective patient is stable for discharge home today and he can finish outpatient course of doxycycline, prednisone, nebulized bronchodilators. Follow-up with Dr. Anna in the office down to 10 days I performed a history & physical examination of the patient and discussed their management with my nurse practitioner, Pina Molina. I reviewed the nurse practitioner's note and agree with the documented findings and plan of care. Lung sounds are positive for a few scattered rhonchi over right lower lobe. The findings and the impression was discussed with the patient. I attest to the documentation by the nurse practitioner. Time with Patient: Less than 30
[2018-07-09] MEDS: FERROUS SULFATE 325 MG TAB PO SCH (13:04)
[2018-07-09] MEDS: CHOLECALCIFEROL 1,000 UNIT TAB PO SCH (13:04)
[2018-07-09] MEDS: MAG HYDROX/AL HYDROX/SIMETH 30 ML CUP PO PRN (13:42)
--- NOTE | 2018-07-09 15:04 | P.PN ---
Subjective Progress Note Date: 07/09/18 This is a 78-year-old gentleman who follows regularly with Dr. Michelle Stock in the office. He has a known history of severe rheumatoid arthritis, paroxysmal atrial fibrillation, hypertension, hyperlipidemia, pulmonary fibrosis. He also has known aortic stenosis. Patient did have a cardiac catheterization performed in 2010 which did not reveal any significant obstructive coronary artery disease. He presents to the hospital on this occasion with symptoms of feeling weak, patient also states he had an episode of shortness of breath and shaking, his family was unable to move him from his chair to another chair and hence the patient was brought to the emergency room for further evaluation. Patient did have an echocardiogram with Doppler study performed here in September which revealed a normal left ventricular systolic function, moderate aortic stenosis. Chest x-ray on arrival here revealed chronic changes without acute pulmonary process. EKG showed a normal sinus rhythm with no acute changes. His blood pressure on arrival here 78/50, with a heart rate in the 50s, 90% on room air. Blood pressure this morning 117/60 with a heart rate in the 80s, 94% on room air. White blood cell count 9.8, hemoglobin 12.5, platelet count 168. INR 2.3. Sodium 139, potassium 4.7, BUN 33, creatinine 1.2. CK 977, 1238, 1094, MB 21.2, 30.9, 30.9. Troponin 0.29, 0.23, 0.14. BNP level 2500. Lanoxin level 1.3. At the time of my examination this morning, patient is sitting comfortably in bed, no complaints. He denies any chest discomfort. 07/08/2018 Patient seen and examined this morning, sitting up in the chair at bedside. Currently on antibiotics as ordered by primary care. Blood pressure 138/60 with a heart rate in the 90s, 96% on room air. White blood cell count 14.8, hemoglobin 11.1, platelet count 171. Sodium 138, potassium 4.8, BUN 38, creatinine 1.0. 07/09/2018 Patient sitting up in bed side today, overall feeling significantly better. INR today 4.5, we will hold the patient's Coumadin and check his INR in the morning. If the patient does get discharged home today and recommended by Dr. Michelle Stock to check his PT/INR on Saturday and call the office with the results. Until that time he's been instructed to hold his Coumadin. Objective - Vital Signs Vital signs: Vital Signs Temp 97.5 F L 07/09/18 08:00 Pulse 100 07/09/18 11:27 Resp 16 07/09/18 03:23 BP 111/59 07/09/18 08:00 Pulse Ox 95 07/09/18 08:00 Intake & Output 07/08/18 07/09/18 07/09/18 18:59 06:59 18:59 Intake Total 760 240 Output Total 900 425 100 Balance -140 -425 140 Weight 65.5 kg Intake: Intake, IV Titration 400 Amount Sodium Chloride 0.9% 1, 400 000 ml @ 50 mls/hr IV . Q20H [facility] Rx#:[id number] Oral 360 240 Output: Urine 900 425 100 Other: Voiding Method Urinal # Voids 1 1 # Bowel Movements 0 0 - Exam PHYSICAL EXAMINATION: GENERAL: 78-year-old gentleman in no acute distress at the time of my examination HEENT: Head is atraumatic, normocephalic. Pupils equal, round. Sclera anicteric. Conjunctiva are clear. Mucous membranes of the mouth are moist. Neck is supple. There is no elevated jugular venous pressure. No carotid bruit is heard. HEART EXAMINATION: Heart S1 and S2 systolic ejection murmur is heard. CHEST EXAMINATION: Lungs reveal scattered coarse rhonchi throughout. ABDOMEN: Soft, nontender. Bowel sounds are heard. No organomegaly noted. EXTREMITIES: 2+ peripheral pulses with no evidence of peripheral edema and no calf tenderness noted. Severe disfiguration from rheumatoid arthritis. NEUROLOGIC patient is awake, alert and oriented 3. - Labs CBC & Chem 7: 07/08/18 06:43 07/08/18 06:43 Labs: Abnormal Lab Results - Last 24 Hours (Table) 07/08/18 07/08/18 07/09/18 Range/Units 16:12 20:38 06:08 PT (9.0-12.0) sec INR (<1.2) POC Glucose (mg/dL) 133 H 128 H 111 H (75-99) mg/dL Creatine Kinase (55-170) U/L 07/09/18 07/09/18 Range/Units 07:26 07:26 PT 43.1 H (9.0-12.0) sec INR 4.5 H (<1.2) POC Glucose (mg/dL) (75-99) mg/dL Creatine Kinase 759 H (55-170) U/L Microbiology - Last 24 Hours (Table) 07/06/18 15:05 Blood Culture - Preliminary Blood No Growth after 48 hours Assessment and Plan Plan: Assessment and plan #1 symptoms of fairly sudden onset of weakness with associated shortness of breath and shaking. Chest x-ray showed chronic changes without any acute pulmonary process. BNP level 2500. #2 abnormal CK-MBs, with abnormality in troponin, not consistent with acute coronary syndrome, EKG shows normal sinus rhythm with no acute changes. Has been noted on prior admission that the patient had similar abnormality in troponin. Cardiac catheterization performed in 2010 revealed normal coronary arteries. #3 severe rheumatoid arthritis with chronic pain #4 paroxysmal atrial fibrillation on Coumadin for anticoagulation #5 hypertension #6 hyperlipidemia #7 pulmonary fibrosis Plan From cardiology's perspective, we'll recommend to continue the patient on his current medications. Hold Coumadin, check PT/INR on Saturday, call office with results. Stable from cardiology's perspective. DNP note has been reviewed, I agree with a documented findings and plan of care. Patient was seen and examined.
[2018-07-09 15:14] VITALS: BP 127/57; PULSE 101
--- NOTE | 2018-07-09 15:43 | P.DS ---
Providers Date of admission: 07/08/18 14:07 Expected date of discharge: 07/09/18 Attending physician: Pati Villela Consults: 07/06/18 17:01 Consult Physician Routine Consulting Provider: Sanchez Anna Consult Reason/Comments: dyspnea Do you want consulting provider notified?: Yes Consult Physician Urgent Consulting Provider: Lyndsay Stock Consult Reason/Comments: Cardiac evaluation Do you want consulting provider notified?: Yes Primary care physician: [facility] Course: 77 years old male patient of Dr. Jake Stock, with past medical history of severely debilitating rheumatoid arthritis with loss of function of his hands bilaterally, history of atrial fibrillation, BPH, degenerative disc disease presents pulmonary fibrosis, asbestosis, moderate aortic stenosis, asbestosis admitted to the emergency room secondary to weakness, blood pressure was 78/50, patient also has had cough congestion, since Saturday, weak and has been unable to transfers from chair to lift chair, was started on Bactrim double strength 2 tabs twice a day from the emergency room yesterday secondary to an abscess in the left eye. Patient also is had wheezing and coughing, patient has nebulizer treatments which is not helping, and no O2 requirements at home. Patient has been wheelchair bound secondary to severe RA with multiple rheumatoid nodules and deformities Status post cardiac cath performed in 2010 which failed to reveal any obstructive disease, presenting with a slightly elevated troponin, cardiology has been consulted secondary to the mild troponin elevation, BNP was 2500 troponin on admission was 0.232, 0.141, CK 1238, 1094 CK index 2.5/2.8. Urinalysis shows calcium oxalate crystals, urine WBC of less than 1 influenza test negative 07/08: Patient is feeling improved from yesterday. Breathing is improved. Patient is followed by pulmonary medicine and cardiology. We will plan to decrease Solu-Medrol and start prednisone in the morning. Cardiology is recommending continuing current medications. Acute coronary syndrome has been ruled out. Patient lives at home with his . He does have a caregiver in place 8-10 hours per day. Possible discharge by tomorrow 07/09: Pulse ox is 94% on room air, vital signs and stable. Patient has been afebrile. INR is 4.5 and patient has been instructed to hold his home dose of Coumadin tonight and resume as normal tomorrow. Patient has been cleared by cardiology and pulmonary medicine for discharge. Patient will be discharged home today in stable condition. Discharge diagnoses: 1. Atypical chest pain accompanied by pulmonary symptoms, acute coronary syndrome ruled out. 2. COPD with pulmonary fibrosis with exacerbation, acute bronchitis exacerbation, in immunocompromised host 3. Paroxysmal atrial fibrillation. 4. Chronic pain secondary to RA 5. Rheumatoid arthritis 6. Small left thigh abscess, this has been drained by ER days ago, 7. Acute renal insufficiency without acute und kidney injury, CKD stage III 8. Random blood sugars, last A1c 5.3 no diabetes diagnosis 9. Rhabdomyolysis, most likely secondary to underlying rheumatologic disease 10. Barnes without any obstructive pathology 11. Chronic diastolic heart failure 12. Moderate aortic stenosis Discharge plan: Home Impression and plan of care have been directed as dictated by the signing physician. Brianna Malik nurse practitioner acting as scribe for signing physician. Patient Condition at Discharge: Good Plan - Discharge Summary New Discharge Prescriptions: New Cephalexin [Keflex] 500 mg PO Q8HR #21 cap predniSONE 0 mg PO DIRECTED #40 tab Ipratropium-Albuterol Nebulize [Duoneb 0.5 mg-3 mg/3 ml Soln] 3 ml INHALATION RT-QID #120 ampul.neb Continue fentaNYL 50MCG/HR PATCH [Duragesic 50MCG/HR] 50 mcg TRANSDERM Q72H Aspirin 81 mg PO DAILY Hydroxychloroquine Sulfate [Plaquenil] 200 mg PO DAILY Tamsulosin [Flomax] 0.4 mg PO DAILY Gabapentin [Neurontin] 300 mg PO TID Acetaminophen-Codeine 300-30mg [Tylenol w/codeine #3] 1 tab PO Q6H PRN PRN Reason: Pain L.acidoph,Paracasei, B.lactis [Probiotic] 1 cap PO DAILY Digoxin [Lanoxin] 125 mcg PO QAM Ferrous Sulfate [Iron (65 MG Elemental)] 325 mg PO DAILY Warfarin [Coumadin] 1 mg PO SUTUTH Cholecalciferol (Vitamin D3) [Vitamin D3] 2,000 unit PO DAILY Cyclobenzaprine [Flexeril] 5 mg PO HS predniSONE 10 mg PO DAILY Lidocaine 5% Patch [Lidoderm 5% Patch] 1 patch TOPICAL DAILY Furosemide [Lasix] 20 mg PO DAILY Warfarin [Coumadin] 1.5 mg PO MOWEFRSA Discontinued Sulfamethox-Tmp 800-160Mg [Bactrim DS 800-160 mg] 2 tab PO Q12HR Discharge Medication List Acetaminophen-Codeine 300-30mg [Tylenol w/codeine #3] 1 tab PO Q6H PRN 07/18/16 [History] Aspirin 81 mg PO DAILY 07/18/16 [History] Gabapentin [Neurontin] 300 mg PO TID 07/18/16 [History] Hydroxychloroquine Sulfate [Plaquenil] 200 mg PO DAILY 07/18/16 [History] L.acidoph,Paracasei, B.lactis [Probiotic] 1 cap PO DAILY 07/18/16 [History] Tamsulosin [Flomax] 0.4 mg PO DAILY 07/18/16 [History] fentaNYL 50MCG/HR PATCH [Duragesic 50MCG/HR] 50 mcg TRANSDERM Q72H 07/18/16 [ History] Digoxin [Lanoxin] 125 mcg PO QAM 01/10/17 [History] Ferrous Sulfate [Iron (65 MG Elemental)] 325 mg PO DAILY 08/21/17 [History] Cholecalciferol (Vitamin D3) [Vitamin D3] 2,000 unit PO DAILY 10/11/17 [History] Cyclobenzaprine [Flexeril] 5 mg PO HS 10/11/17 [History] Warfarin [Coumadin] 1 mg PO SUTUTH 10/11/17 [History] Furosemide [Lasix] 20 mg PO DAILY 07/06/18 [History] Lidocaine 5% Patch [Lidoderm 5% Patch] 1 patch TOPICAL DAILY 07/06/18 [History] Warfarin [Coumadin] 1.5 mg PO MOWEFRSA 07/06/18 [History] predniSONE 10 mg PO DAILY 07/06/18 [History] Cephalexin [Keflex] 500 mg PO Q8HR #21 cap 07/09/18 [Rx] Ipratropium-Albuterol Nebulize [Duoneb 0.5 mg-3 mg/3 ml Soln] 3 ml INHALATION RT -QID #120 ampul.neb 07/09/18 [Rx] predniSONE 0 mg PO DIRECTED #40 tab 07/09/18 [Rx] Follow up Appointment(s)/Referral(s): Lyndsay Stock MD [STAFF PHYSICIAN] - 07/28/18 9:15 am Pete Joseph MD [Primary Care Provider] - 07/17/18 11:15 am () Sanchez Anna DO [Doctor of Osteopathic Medicine] - 07/24/18 9:30 am Patient Instructions/Handouts: Acute Bronchitis (ED), Dyspnea (DC) Activity/Diet/Wound Care/Special Instructions: No coumadin tonight. Resume normal dose tomorrow. Discharge Disposition: HOME SELF-CARE
== END 2018-07-09 14:35 | disposition home or self-care (01) | DRG 191 ==
LOC: EC 14:26 → 3SCARD 17:09 → OBSVTOIN 07-08 14:07
PROVIDERS: ADMIT Family Medicine; ATTEND Family Medicine
DX: J44.0 Chronic obstructive pulmonary disease with (acute) lower respiratory infection (principal); L02.416 Cutaneous abscess of left lower limb; I13.0 Hypertensive heart and chronic kidney disease with heart failure and stage 1 through stage 4 chronic kidney disease, or unspecified chronic kidney disease; M62.82 Rhabdomyolysis; I50.32 Chronic diastolic (congestive) heart failure; J44.1 Chronic obstructive pulmonary disease with (acute) exacerbation; I08.3 Combined rheumatic disorders of mitral, aortic and tricuspid valves; I48.0 Paroxysmal atrial fibrillation; J20.9 Acute bronchitis, unspecified; M06.9 Rheumatoid arthritis, unspecified; N18.3 Chronic kidney disease, stage 3 (moderate); R07.89 Other chest pain; N28.9 Disorder of kidney and ureter, unspecified; J61 Pneumoconiosis due to asbestos and other mineral fibers; K44.9 Diaphragmatic hernia without obstruction or gangrene; E78.5 Hyperlipidemia, unspecified; M19.90 Unspecified osteoarthritis, unspecified site; N40.0 Benign prostatic hyperplasia without lower urinary tract symptoms; G89.29 Other chronic pain; Z79.82 Long term (current) use of aspirin; Z79.01 Long term (current) use of anticoagulants; Z79.52 Long term (current) use of systemic steroids; Z79.899 Other long term (current) drug therapy; Z88.5 Allergy status to narcotic agent; Z86.718 Personal history of other venous thrombosis and embolism; Z87.11 Personal history of peptic ulcer disease; Z99.3 Dependence on wheelchair; Z86.14 Personal history of Methicillin resistant Staphylococcus aureus infection; Z87.442 Personal history of urinary calculi; Z96.653 Presence of artificial knee joint, bilateral; Z96.619 Presence of unspecified artificial shoulder joint; Z98.1 Arthrodesis status; Z87.891 Personal history of nicotine dependence; Z80.3 Family history of malignant neoplasm of breast; Z82.49 Family history of ischemic heart disease and other diseases of the circulatory system; Z87.19 Personal history of other diseases of the digestive system
CPT/HCPCS: 36415; 71046; 80048; 80053; 80061; 80162; 81001; 82550; 82553; 83036; 83880; 84439; 84443; 84445; 84484; 85025; 85027; 85610; 85730; 87040; 87086; 87502; 93005; 93306; 94640; 94760; 96375; 99285

== ENCOUNTER 2018-07-14 19:26 | Inpatient (IN) | payer MEDICARE ==
[2018-07-14] MEDS ORDERED: SODIUM CHLORIDE 0.9% 1,000 ML IV STA ×3 (19:32→19:47)
[2018-07-14] MEDS ORDERED: ONDANSETRON 4 MG/2 ML VIAL IVP STA (19:33)
[2018-07-14] MEDS ORDERED: PANTOPRAZOLE 40 MG/10 ML VIAL IVP STA (19:33)
--- NOTE | 2018-07-14 19:34 | ED ---
Weakness HPI - General Stated complaint: Nausea, Vomiting Time Seen by Provider: 07/14/18 19:33 Source: RN notes reviewed, old records reviewed - History of Present Illness Initial comments: This is a 70-year-old male to the ER for evaluation presents for nausea vomiting and diarrhea 2 days. Patient does have positive neurovirus exposure denies fever states he cannot keep anything down has not eaten or drank in in about 2 days secondary to severe nausea vomiting diarrhea, admits to significant dehydration weakness fatigue. Denies fever MD Complaint: generalized weakness, lack of energy -: days(s) Location: generalized Severity: severe Severity scale (1-10): 9 Quality: other (No pain) Consistency: other Improves with: none Worsens with: none Context: other Associated Symptoms: nausea/vomiting - Related Data Home Medications Medication Instructions Recorded Confirmed Acetaminophen-Codeine 300-30mg 1 tab PO Q6H PRN 07/18/16 07/14/18 [Tylenol w/codeine #3] Aspirin 81 mg PO DAILY 07/18/16 07/14/18 Gabapentin [Neurontin] 300 mg PO TID 07/18/16 07/14/18 Hydroxychloroquine Sulfate 200 mg PO DAILY 07/18/16 07/14/18 [Plaquenil] L.acidoph,Paracasei, B.lactis 1 cap PO DAILY 07/18/16 07/14/18 [Probiotic] Tamsulosin [Flomax] 0.4 mg PO DAILY 07/18/16 07/14/18 fentaNYL 50MCG/HR PATCH [Duragesic 50 mcg TRANSDERM Q72H 07/18/16 07/14/18 50MCG/HR] Digoxin [Lanoxin] 125 mcg PO DAILY 01/10/17 07/14/18 Ferrous Sulfate [Iron (65 MG 325 mg PO DAILY 08/21/17 07/14/18 Elemental)] Cholecalciferol (Vitamin D3) 2,000 unit PO DAILY 10/11/17 07/14/18 [Vitamin D3] Cyclobenzaprine [Flexeril] 5 mg PO HS 10/11/17 07/14/18 Warfarin [Coumadin] 1 mg PO SUTUTH 10/11/17 07/14/18 Furosemide [Lasix] 20 mg PO DAILY 07/06/18 07/14/18 Warfarin [Coumadin] 1.5 mg PO MOWEFRSA 07/06/18 07/14/18 predniSONE 10 mg PO DAILY 07/06/18 07/14/18 Allergies Allergy/AdvReac Type Severity Reaction Status Date / Time meperidine Allergy Nausea & Verified 07/14/18 21:22 Vomiting propoxyphene [From Darvon] Allergy Unknown Verified 07/14/18 21:22 morphine AdvReac Confusion Verified 07/14/18 21:22 Review of Systems ROS Statement: Those systems with pertinent positive or pertinent negative responses have been documented in the HPI. ROS Other: All systems not noted in ROS Statement are negative. Past Medical History Past Medical History: Atrial Fibrillation, Deep Vein Thrombosis (DVT), Osteoarthritis (OA), Rheumatoid Arthritis (RA), Skin Disorder Additional Past Medical History / Comment(s): small hiatal hernia, asbestosis, wound outside left foot, hx colitis, wheelchair-non ambulatory from severe RA- "difficulty bending wrists or striaghtening arms, hx fx back,, "low BP", hx DVT rt [id number], kidney stones, stomach ulcer. History of Any Multi-Drug Resistant Organisms: MRSA Date of last positivie culture/infection: 11/19/07 MDRO Source:: Unknown Past Surgical History: Appendectomy, Back Surgery, Heart Catheterization, Joint Replacement, Tonsillectomy Additional Past Surgical History / Comment(s): alfredito hip replacments &alfredito knee replacments,,metatarsal heads removed,fingers,shoulder joint replaced,spinal fusion C1&2,colectomy 08/28/16 debridement left lateral foot, lt great toe amp thru metatarsal, upper endocodpy. picc line -since removed,lithotripsy x2 Past Anesthesia/Blood Transfusion Reactions: Postoperative Nausea & Vomiting ( PONV) Past Psychological History: No Psychological Hx Reported Additional Psychological History / Comment(s): pt lives iwth sujey in single level home with no porch steps. has electric w/c. private care hired. no pets. 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 Smoking Status: Former smoker Past Alcohol Use History: None Reported Additional Past Alcohol Use History / Comment(s): started smoking age 19(1959), quit 1972 smoked 1.5 ppd Past Drug Use History: None Reported - Past Family History Mother Family Medical History: AICD/Pacemaker, Cancer Additional Family Medical History / Comment(s): Breast, pacemaker Father Family Medical History: AICD/Pacemaker Additional Family Medical History / Comment(s): pacemaker General Exam General appearance: alert, lethargic, in distress Head exam: Present: atraumatic, normocephalic, normal inspection Eye exam: Present: normal appearance, PERRL, EOMI. Absent: scleral icterus, conjunctival injection, periorbital swelling ENT exam: Present: normal exam, TM's normal bilaterally Neck exam: Present: normal inspection. Absent: tenderness, meningismus, lymphadenopathy Respiratory exam: Present: normal lung sounds bilaterally. Absent: respiratory distress, wheezes, rales, rhonchi, stridor Cardiovascular Exam: Present: normal rhythm, tachycardia, normal heart sounds. Absent: systolic murmur, diastolic murmur, rubs, gallop, clicks GI/Abdominal exam: Present: soft, normal bowel sounds. Absent: distended, tenderness, guarding, rebound, rigid Extremities exam: Present: normal inspection, full ROM, normal capillary refill. Absent: tenderness, pedal edema, joint swelling, calf tenderness Back exam: Present: normal inspection Neurological exam: Present: alert, oriented X3, CN II-XII intact Psychiatric exam: Present: normal affect, normal mood Skin exam: Present: warm, dry, intact, normal color. Absent: rash Course Vital Signs 07/14/18 07/14/18 07/14/18 19:34 20:00 20:30 Temperature 99.4 F Pulse Rate 125 H 125 H 120 H Respiratory 16 26 H 11 L Rate Blood Pressure 81/52 81/52 98/64 O2 Sat by Pulse 94 L 90 L 97 Oximetry 07/14/18 07/14/18 07/14/18 21:00 21:30 22:00 Temperature Pulse Rate 115 H 105 H 112 H Respiratory 15 18 15 Rate Blood Pressure 94/45 91/57 105/53 O2 Sat by Pulse Oximetry 07/14/18 22:30 Temperature Pulse Rate 112 H Respiratory 18 Rate Blood Pressure 116/50 O2 Sat by Pulse Oximetry - Reevaluation(s) Reevaluation #1: Medical record is reviewed Patient does feel mildly improved EKG Findings - EKG Comments: EKG Findings:: EKG shows sinus tachycardia rate 1:30, NM 144, QRS 90, QTC 379 Medical Decision Making - Medical Decision Making 78 male recently exposed to normal virus family members, patient has had persistent nausea vomiting diarrhea with severe dehydration will admit for symptom control and IV hydration - Lab Data Result diagrams: 07/14/18 19:00 07/14/18 19:00 Lab Results 07/14/18 07/14/18 07/14/18 Range/Units 19:00 19:00 19:00 WBC 18.0 H (3.8-10.6) k/uL RBC 3.98 L (4.30-5.90) m/uL Hgb 13.4 (13.0-17.5) gm/dL Hct 40.2 (39.0-53.0) % MCV 100.9 H (80.0-100.0) fL MCH 33.6 (25.0-35.0) pg MCHC 33.3 (31.0-37.0) g/dL RDW 13.9 (11.5-15.5) % Plt Count 284 (150-450) k/uL Neutrophils % 93 % Lymphocytes % 1 % Monocytes % 3 % Eosinophils % 2 % Basophils % 0 % Neutrophils # 16.8 H (1.3-7.7) k/uL Lymphocytes # 0.3 L (1.0-4.8) k/uL Monocytes # 0.5 (0-1.0) k/uL Eosinophils # 0.3 (0-0.7) k/uL Basophils # 0.0 (0-0.2) k/uL Macrocytosis Slight PT (9.0-12.0) sec INR (<1.2) APTT (22.0-30.0) sec Sodium 137 (137-145) mmol/L Potassium 5.5 H (3.5-5.1) mmol/L Chloride 103 (98-107) mmol/L Carbon Dioxide 26 (22-30) mmol/L Anion Gap 8 mmol/L BUN 49 H (9-20) mg/dL Creatinine 1.02 (0.66-1.25) mg/dL Est GFR (CKD-EPI)AfAm 81 (>60 ml/min/1.73 sqM) Est GFR (CKD-EPI)NonAf 70 (>60 ml/min/1.73 sqM) Glucose 110 H (74-99) mg/dL Plasma Lactic Acid Kurtis 1.6 (0.7-2.0) mmol/L Calcium 8.5 (8.4-10.2) mg/dL Phosphorus 1.9 L (2.5-4.5) mg/dL Magnesium 1.9 (1.6-2.3) mg/dL Total Bilirubin 1.3 (0.2-1.3) mg/dL AST 41 (17-59) U/L ALT 41 (21-72) U/L Alkaline Phosphatase 52 (38-126) U/L Total Creatine Kinase (55-170) U/L CK-MB (CK-2) (0.0-2.4) ng/mL CK-MB (CK-2) Rel Index Troponin I (0.000-0.034) ng/mL Total Protein 6.2 L (6.3-8.2) g/dL Albumin 3.1 L (3.5-5.0) g/dL Urine Color Urine Appearance (Clear) Urine pH (5.0-8.0) Ur Specific Gleason (1.001-1.035) Urine Protein (Negative) Urine Glucose (UA) (Negative) Urine Ketones (Negative) Urine Blood (Negative) Urine Nitrite (Negative) Urine Bilirubin (Negative) Urine Urobilinogen (<2.0) mg/dL Ur Leukocyte Esterase (Negative) Urine RBC (0-5) /hpf Urine WBC (0-5) /hpf Ur Squamous Epith Cells (0-4) /hpf Hyaline Casts (0-2) /lpf Urine Mucus (None) /hpf 07/14/18 07/14/18 07/14/18 Range/Units 19:32 19:32 21:15 WBC (3.8-10.6) k/uL RBC (4.30-5.90) m/uL Hgb (13.0-17.5) gm/dL Hct (39.0-53.0) % MCV (80.0-100.0) fL MCH (25.0-35.0) pg MCHC (31.0-37.0) g/dL RDW (11.5-15.5) % Plt Count (150-450) k/uL Neutrophils % % Lymphocytes % % Monocytes % % Eosinophils % % Basophils % % Neutrophils # (1.3-7.7) k/uL Lymphocytes # (1.0-4.8) k/uL Monocytes # (0-1.0) k/uL Eosinophils # (0-0.7) k/uL Basophils # (0-0.2) k/uL Macrocytosis PT 19.0 H (9.0-12.0) sec INR 1.9 H (<1.2) APTT 26.2 (22.0-30.0) sec Sodium (137-145) mmol/L Potassium (3.5-5.1) mmol/L Chloride (98-107) mmol/L Carbon Dioxide (22-30) mmol/L Anion Gap mmol/L BUN (9-20) mg/dL Creatinine (0.66-1.25) mg/dL Est GFR (CKD-EPI)AfAm (>60 ml/min/1.73 sqM) Est GFR (CKD-EPI)NonAf (>60 ml/min/1.73 sqM) Glucose (74-99) mg/dL Plasma Lactic Acid Kurtis (0.7-2.0) mmol/L Calcium (8.4-10.2) mg/dL Phosphorus (2.5-4.5) mg/dL Magnesium (1.6-2.3) mg/dL Total Bilirubin (0.2-1.3) mg/dL AST (17-59) U/L ALT (21-72) U/L Alkaline Phosphatase (38-126) U/L Total Creatine Kinase 73 (55-170) U/L CK-MB (CK-2) 2.2 (0.0-2.4) ng/mL CK-MB (CK-2) Rel Index 3.0 Troponin I 0.240 H* (0.000-0.034) ng/mL Total Protein (6.3-8.2) g/dL Albumin (3.5-5.0) g/dL Urine Color Yellow Urine Appearance Cloudy (Clear) Urine pH 5.0 (5.0-8.0) Ur Specific Gleason 1.019 (1.001-1.035) Urine Protein 1+ H (Negative) Urine Glucose (UA) Negative (Negative) Urine Ketones 1+ H (Negative) Urine Blood Negative (Negative) Urine Nitrite Negative (Negative) Urine Bilirubin Negative (Negative) Urine Urobilinogen <2.0 (<2.0) mg/dL Ur Leukocyte Esterase Negative (Negative) Urine RBC 6 H (0-5) /hpf Urine WBC 5 (0-5) /hpf Ur Squamous Epith Cells 1 (0-4) /hpf Hyaline Casts 27 H (0-2) /lpf Urine Mucus Few H (None) /hpf - Radiology Data Radiology results: report reviewed (CXR is negative for acute disease), image reviewed Disposition Clinical Impression: Weakness, Dehydration, Gastroenteritis Disposition: ADMITTED IP TO THIS HOSP Condition: Fair Is patient prescribed a controlled substance at d/c from ED?: No
[2018-07-14 20:08] LABS: Basophils % (A) 0 %; Eosinophils # (A) 0.3 k/uL (0-0.7); Eosinophils % (A) 2 %; HCT 40.2 % (39.0-53.0); HGB 13.4 gm/dL (13.0-17.5); Lymphocytes # (A) 0.3 k/uL (1.0-4.8); Lymphocytes % (A) 1 %; MCH 33.6 pg (25.0-35.0); MCHC 33.3 g/dL (31.0-37.0); MCV 100.9 fL (80.0-100.0); Macrocytosis Slight; Mean Platelet Volume 8.1; Monocytes # (A) 0.5 k/uL (0-1.0); Monocytes % (A) 3 %; Neutrophils # (A) 16.8 k/uL (1.3-7.7); Neutrophils % (A) 93 %; Platelet Count 284 k/uL (150-450); RBC 3.98 m/uL (4.30-5.90); RDW 13.9 % (11.5-15.5)
[2018-07-14 20:18] LABS: Albumin 3.1 g/dL (3.5-5.0); Calcium 8.5 mg/dL (8.4-10.2); Magnesium 1.9 mg/dL (1.6-2.3); Phosphorus 1.9 mg/dL (2.5-4.5); Total Bilirubin 1.3 mg/dL (0.2-1.3); Total Protein 6.2 g/dL (6.3-8.2)
--- NOTE | 2018-07-14 20:43 | XR ---
EXAMINATION TYPE: XR chest 2V DATE OF EXAM: 07/14/2018 COMPARISON: 07/06/2018 HISTORY: Shortness of breath TECHNIQUE: Frontal and lateral views of the chest are obtained. FINDINGS: Scattered senescent parenchymal changes noted. Hyperinflation compatible with COPD. Left-sided pleura l calcifications again noted. Increased patchy density left lower lobe may reflect underlying infiltrate. Heart size is stable. Mediastinal structures are stable and grossly unremarkable. No evidence for hilar prominence. Degenerative changes dorsal spine. IMPRESSION: 1. Increased patchy density left lower lobe may reflect underlying infiltrate.
[2018-07-14 21:06] LABS: INR 1.9 (<1.2)
[2018-07-14 21:07] LABS: Partial Thromboplastin Time 26.2 sec (22.0-30.0)
[2018-07-14 21:09] LABS: Potassium 5.5 mmol/L (3.5-5.1)
[2018-07-14 21:33] LABS: Appearance,Urine Cloudy (Clear); Bilirubin,Urine Negative (Negative); Blood,Urine Negative (Negative); Color,Urine Yellow; Glucose,Urine (UA) Negative (Negative); Hyaline Casts,Urine 27 /lpf (0-2); Ketones,Urine 1+ (Negative); Leukocyte Esterase,Urine Negative (Negative); Mucus,Urine Few /hpf; Nitrite,Urine Negative (Negative); Protein,Urine 1+ (Negative); RBC,Urine 6 /hpf (0-5); Specific Gravity,Urine 1.019 (1.001-1.035); Squamous Epithelial Cell,Urine 1 /hpf (0-4); Urobilinogen,Urine <2.0 mg/dL (<2.0); WBC,Urine 5 /hpf (0-5)
[2018-07-14] MEDS ORDERED: SODIUM CHLORIDE 0.9% 1,000 ML IV ONE (21:43)
[2018-07-14] MEDS ORDERED: ONDANSETRON 4 MG/2 ML VIAL IVP PRN (21:44)
[2018-07-14 21:45] LABS: Creatine Kinase MB 2.2 ng/mL (0.0-2.4)
[2018-07-14 21:52] LABS: Troponin I 0.24 ng/mL (0.000-0.034)
[2018-07-14] MEDS ORDERED: HYDROmorphone 0.5 MG/0.5 ML SYRINGE IVP STA (22:13)
[2018-07-15] MEDS: CYCLOBENZAPRINE 5 MG TAB PO SCH ×2 (01:41→20:30)
[2018-07-15] MEDS: ALBUTEROL NEBULIZED 2.5 MG/3 ML INHALATION SCH ×5 (03:55→21:37)
[2018-07-15 07:21] LABS: Basophils % (A) 0 %; Eosinophils # (A) 0.3 k/uL (0-0.7); Eosinophils % (A) 2 %; HCT 33.5 % (39.0-53.0); HGB 10.5 gm/dL (13.0-17.5); Lymphocytes # (A) 0.3 k/uL (1.0-4.8); Lymphocytes % (A) 3 %; MCH 32.4 pg (25.0-35.0); MCHC 31.4 g/dL (31.0-37.0); MCV 103.1 fL (80.0-100.0); Macrocytosis Slight; Mean Platelet Volume 6.8; Monocytes # (A) 0.2 k/uL (0-1.0); Monocytes % (A) 2 %; Neutrophils # (A) 11.7 k/uL (1.3-7.7); Neutrophils % (A) 93 %; Platelet Count 297 k/uL (150-450); RBC 3.24 m/uL (4.30-5.90); RDW 14.1 % (11.5-15.5); WBC 12.7 k/uL (3.8-10.6)
[2018-07-15 07:30] LABS: ALT 34 U/L (21-72); AST 25 U/L (17-59); Albumin 2.3 g/dL (3.5-5.0); Alkaline Phosphatase 45 U/L (38-126); Anion Gap 4 mmol/L; Blood Urea Nitrogen 38 mg/dL (9-20); Calcium 7.3 mg/dL (8.4-10.2); Carbon Dioxide 28 mmol/L (22-30); Chloride 108 mmol/L (98-107); Glucose 68 mg/dL (74-99); Magnesium 1.8 mg/dL (1.6-2.3); Potassium 4.3 mmol/L (3.5-5.1); Sodium 140 mmol/L (137-145); Total Protein 4.8 g/dL (6.3-8.2)
[2018-07-15] MEDS ORDERED: ENOXAPARIN 40 MG/0.4 ML SYRINGE SQ SCH (09:00)
[2018-07-15] MEDS: CHOLECALCIFEROL 1,000 UNIT TAB PO SCH (09:32)
[2018-07-15] MEDS: Acetaminophen-Codeine 300-30mg TAB PO PRN ×3 (09:32→22:23)
[2018-07-15] MEDS: ASPIRIN 81 MG PO SCH (09:32)
[2018-07-15] MEDS: predniSONE 10 MG TAB PO SCH (09:33)
[2018-07-15] MEDS: FUROSEMIDE 20 MG TAB PO SCH (09:33)
[2018-07-15] MEDS: DIGOXIN 125 MCG TAB PO SCH (09:33)
[2018-07-15] MEDS: TAMSULOSIN 0.4 MG CAP.ER.24H PO SCH (09:33)
[2018-07-15] MEDS: PANTOPRAZOLE 40 MG/10 ML VIAL IVP SCH (09:33)
[2018-07-15] MEDS: GABAPENTIN 300 MG CAP PO SCH ×3 (09:33→20:30)
[2018-07-15] MEDS: FERROUS SULFATE 325 MG TAB PO SCH (09:33)
[2018-07-15] MEDS: HYDROXYCHLOROQUINE SULFATE 200 MG TAB PO SCH (10:02)
--- NOTE | 2018-07-15 10:05 | P.CRDCN ---
History of Present Illness Consult date: 07/15/18 History of present illness: His is a 78-year-old gentleman with history of severe rheumatoid arthritis, paroxysmal atrial fibrillation, hypertension, hyperlipidemia and also pulmonary fibrosis. He also has moderate aortic stenosis. He was in this hospital on July 06 with episode of shortness of breath. Patient is now admitted to the hospital with complaints of weakness, nausea vomiting and diarrhea. He also has chronic shortness of breath. We're asked to see the patient because of abnormal troponin values. The troponins are elevated but the pattern is not consistent with acute coronary syndrome. Patient had a cardiac catheterization in 2010 and was not performed having significant obstructive disease. I do not advocate any further cardiac evaluation at this time. Based on the troponin values. Patient has diarrhea and the positive Clostridium difficile to be considered. Patient's clinical examination shows diffuse rales in the lungs related to his pulmonary fibrosis. Systolic murmur heard consistent with moderate aortic stenosis. Patient prognosis is guarded Past Medical History Past Medical History: Atrial Fibrillation, Deep Vein Thrombosis (DVT), Osteoarthritis (OA), Rheumatoid Arthritis (RA), Skin Disorder Additional Past Medical History / Comment(s): small hiatal hernia, asbestosis, wound outside left foot, hx colitis, wheelchair-non ambulatory from severe RA- "difficulty bending wrists or striaghtening arms, hx fx back,, "low BP", hx DVT rt [id number], kidney stones, stomach ulcer. History of Any Multi-Drug Resistant Organisms: MRSA Date of last positivie culture/infection: 11/19/07 MDRO Source:: Unknown Past Surgical History: Appendectomy, Back Surgery, Heart Catheterization, Joint Replacement, Tonsillectomy Additional Past Surgical History / Comment(s): alfredito hip replacments &alfredito knee replacments,,metatarsal heads removed,fingers,shoulder joint replaced,spinal fusion C1&2,colectomy 08/28/16 debridement left lateral foot, lt great toe amp thru metatarsal, upper endoscopy; picc line -since removed,lithotripsy x2 Past Anesthesia/Blood Transfusion Reactions: Postoperative Nausea & Vomiting ( PONV) Past Psychological History: No Psychological Hx Reported Additional Psychological History / Comment(s): pt lives with sujey in single level home with no porch steps. has electric w/c. private care and home care hired. no pets. 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 Smoking Status: Former smoker Past Alcohol Use History: None Reported Additional Past Alcohol Use History / Comment(s): started smoking age 19(1959), quit 1973 smoked 1.5 ppd Past Drug Use History: None Reported - Past Family History Mother Family Medical History: AICD/Pacemaker, Cancer Additional Family Medical History / Comment(s): Breast, pacemaker Father Family Medical History: AICD/Pacemaker Additional Family Medical History / Comment(s): pacemaker Medications and Allergies Home Medications Medication Instructions Recorded Confirmed Type Acetaminophen-Codeine 300-30mg 1 tab PO Q6H PRN 07/18/16 07/14/18 History [Tylenol w/codeine #3] Aspirin 81 mg PO DAILY 07/18/16 07/14/18 History Gabapentin [Neurontin] 300 mg PO TID 07/18/16 07/14/18 History Hydroxychloroquine Sulfate 200 mg PO DAILY 07/18/16 07/14/18 History [Plaquenil] L.acidoph,Paracasei, B.lactis 1 cap PO DAILY 07/18/16 07/14/18 History [Probiotic] Tamsulosin [Flomax] 0.4 mg PO DAILY 07/18/16 07/14/18 History fentaNYL 50MCG/HR PATCH [Duragesic 50 mcg TRANSDERM Q72H 07/18/16 07/14/18 History 50MCG/HR] Digoxin [Lanoxin] 125 mcg PO DAILY 01/10/17 07/14/18 History Ferrous Sulfate [Iron (65 MG 325 mg PO DAILY 08/21/17 07/14/18 History Elemental)] Cholecalciferol (Vitamin D3) 2,000 unit PO DAILY 10/11/17 07/14/18 History [Vitamin D3] Cyclobenzaprine [Flexeril] 5 mg PO HS 10/11/17 07/14/18 History Warfarin [Coumadin] 1 mg PO SUTUTH 10/11/17 07/14/18 History Furosemide [Lasix] 20 mg PO DAILY 07/06/18 07/14/18 History Warfarin [Coumadin] 1.5 mg PO MOWEFRSA 07/06/18 07/14/18 History predniSONE 10 mg PO DAILY 07/06/18 07/14/18 History Allergies Allergy/AdvReac Type Severity Reaction Status Date / Time meperidine Allergy Nausea & Verified 07/14/18 21:22 Vomiting propoxyphene [From Darvon] Allergy Unknown Verified 07/14/18 21:22 morphine AdvReac Confusion Verified 07/14/18 21:22 Physical Exam Vitals: Vital Signs Temp Pulse Pulse Resp BP BP Pulse Ox 07/15/18 08:00 98.2 F 66 16 124/78 92 L 07/15/18 07:39 76 07/15/18 07:25 72 07/15/18 04:07 80 07/15/18 04:00 98 F 70 17 100/64 95 07/15/18 03:55 80 100 07/15/18 00:00 98 F 103 H 63 17 112/69 07/14/18 23:55 98.3 F 63 17 95/52 93 L 07/14/18 23:30 108 H 18 110/64 07/14/18 23:00 101 H 13 105/51 07/14/18 22:30 112 H 18 116/50 07/14/18 22:00 112 H 15 105/53 07/14/18 21:30 105 H 18 91/57 07/14/18 21:00 115 H 15 94/45 07/14/18 20:30 120 H 11 L 98/64 97 07/14/18 20:00 125 H 26 H 81/52 90 L 07/14/18 19:34 99.4 F 125 H 16 81/52 94 L Intake and Output 07/14/18 07/15/18 07/15/18 22:59 06:59 14:59 Intake Total 1250 Balance 1250 Intake: Intake, IV Titration 800 Amount Sodium Chloride 0.9% 1, 800 000 ml @ 100 mls/hr IV . Q10H ONE Rx#:[id number] Oral 450 Other: Voiding Method Urinal # Voids 250 Weight 58.967 kg 62.5 kg GENERAL EXAM: Patient is frail and weak. HEENT: Normocephalic. NECK: No masses, no nuchal rigidity. CHEST: No chest wall deformity. LUNGS: [Course rales bilaterally HEART: [S1 and S2 normal with systolic murmur in the aortic area ABDOMEN: No hepatosplenomegaly, normal bowel sounds, no guarding or rigidity. SKIN: No rashes CENTRAL NERVOUS SYSTEM: No focal deficits. EXTREMITIES: [No cyanosis, clubbing or edema.] Results 07/15/18 06:45 07/15/18 06:45 Cardiac Enzymes 07/14/18 07/14/18 07/15/18 Range/Units 19:00 19:32 01:22 AST 41 (17-59) U/L CK-MB (CK-2) 2.2 (0.0-2.4) ng/mL Troponin I 0.240 H* 0.233 H* (0.000-0.034) ng/mL 07/15/18 07/15/18 Range/Units 06:45 06:45 AST 25 (17-59) U/L CK-MB (CK-2) (0.0-2.4) ng/mL Troponin I 0.234 H* (0.000-0.034) ng/mL Coagulation 07/14/18 Range/Units 19:32 PT 19.0 H (9.0-12.0) sec APTT 26.2 (22.0-30.0) sec CBC 07/14/18 07/15/18 Range/Units 19:00 06:45 WBC 18.0 H 12.7 H (3.8-10.6) k/uL RBC 3.98 L 3.24 L (4.30-5.90) m/uL Hgb 13.4 10.5 L (13.0-17.5) gm/dL Hct 40.2 33.5 L (39.0-53.0) % Plt Count 284 297 (150-450) k/uL Comprehensive Metabolic Panel 07/14/18 07/15/18 Range/Units 19:00 06:45 Sodium 137 140 (137-145) mmol/L Potassium 5.5 H 4.3 (3.5-5.1) mmol/L Chloride 103 108 H (98-107) mmol/L Carbon Dioxide 26 28 (22-30) mmol/L BUN 49 H 38 H (9-20) mg/dL Creatinine 1.02 0.91 (0.66-1.25) mg/dL Glucose 110 H 68 L (74-99) mg/dL Calcium 8.5 7.3 L (8.4-10.2) mg/dL AST 41 25 (17-59) U/L ALT 41 34 (21-72) U/L Alkaline Phosphatase 52 45 (38-126) U/L Total Protein 6.2 L 4.8 L (6.3-8.2) g/dL Albumin 3.1 L 2.3 L (3.5-5.0) g/dL Current Medications Generic Name Dose Route Start Last Admin Trade Name Freq PRN Reason Stop Dose Admin Acetaminophen/Codeine Phosphate 1 each 07/15/18 01:03 07/15/18 09:32 Tylenol #3 PO 1 each Q6H PRN Administration Pain Albuterol Sulfate 2.5 mg 07/15/18 04:00 07/15/18 07:23 Ventolin Nebulized INHALATION 2.5 mg RT-Q4H GIGI Administration Aspirin 81 mg 07/15/18 09:00 07/15/18 09:32 Aspirin PO 81 mg DAILY GIGI Administration Cholecalciferol 2,000 unit 07/15/18 09:00 07/15/18 09:32 Vitamin D3 PO 2,000 unit DAILY GIGI Administration Cyclobenzaprine HCl 5 mg 07/15/18 01:30 07/15/18 01:41 Flexeril PO 5 mg HS GIGI Administration Digoxin 125 mcg 07/15/18 09:00 07/15/18 09:33 Lanoxin PO 125 mcg DAILY GIGI Administration Fentanyl 1 patch 07/15/18 09:00 07/15/18 09:33 Duragesic 50mcg/Hr Patch TRANSDERM 1 patch Q72H GIGI Administration Ferrous Sulfate 325 mg 07/15/18 09:00 07/15/18 09:33 Feosol PO 325 mg DAILY GIGI Administration Furosemide 20 mg 07/15/18 09:00 07/15/18 09:33 Lasix PO 20 mg DAILY GIGI Administration Gabapentin 300 mg 07/15/18 09:00 07/15/18 09:33 Neurontin PO 300 mg TID GIGI Administration Hydroxychloroquine Sulfate 200 mg 07/15/18 09:00 Plaquenil PO DAILY GIGI Ondansetron HCl 4 mg 07/14/18 21:44 Zofran IVP Q6HR PRN Nausea And Vomiting Pantoprazole Sodium 40 mg 07/15/18 09:00 07/15/18 09:33 Protonix IVP 40 mg DAILY GIGI Administration Prednisone 10 mg 07/15/18 09:00 07/15/18 09:33 PO 10 mg DAILY GIGI Administration Tamsulosin HCl 0.4 mg 07/15/18 09:00 07/15/18 09:33 Flomax PO 0.4 mg DAILY GIGI Administration Warfarin Sodium 1 mg 07/15/18 18:00 Coumadin PO SuTuTh@1800 GIGI Warfarin Sodium 1.5 mg 07/16/18 18:00 Coumadin PO MoWeFrSa@1800 GIGI Intake and Output 07/14/18 07/15/18 07/15/18 22:59 06:59 14:59 Intake Total 1250 Balance 1250 Intake: Intake, IV Titration 800 Amount Sodium Chloride 0.9% 1, 800 000 ml @ 100 mls/hr IV . Q10H ONE Rx#:[id number] Oral 450 Other: Voiding Method Urinal # Voids 250 Weight 58.967 kg 62.5 kg 07/15/18 06:45 07/15/18 06:45 EKG Interpretations (text) Sinus tachycardia Assessment and Plan (1) Paroxysmal atrial fibrillation Current Visit: Yes Status: Acute Code(s): I48.0 - PAROXYSMAL ATRIAL FIBRILLATION SNOMED Code(s): 113803026 (2) Dehydration Current Visit: Yes Status: Acute Code(s): E86.0 - DEHYDRATION SNOMED Code( s): 62223430 (3) Gastroenteritis Current Visit: Yes Status: Acute Code(s): K52.9 - NONINFECTIVE GASTROENTERITIS AND COLITIS, UNSPECIFIED SNOMED Code(s): 18018317 (4) Elevated troponin Current Visit: No Status: Acute Code(s): R74.8 - ABNORMAL LEVELS OF OTHER SERUM ENZYMES SNOMED Code(s): 739952194 (5) Moderate aortic stenosis Current Visit: Yes Status: Acute Code(s): I35.0 - NONRHEUMATIC AORTIC (VALVE ) STENOSIS SNOMED Code(s): 61241898 Plan: The pattern of troponin elevation is not consistent with acute coronary syndrome. It could be mismatch between supply and demand. His main problem seemed to be nausea vomiting and area and weakness. Patient may be dehydrated. No further cardiac evaluation at this time
[2018-07-15 12:51] VITALS: BMI 21.5
--- NOTE | 2018-07-15 14:05 | P.HPIM ---
History of Present Illness H&P Date: 07/15/18 Chief Complaint: n/v diarrhoea 77 years old male patient of Dr. Jake Stock, with past medical history of severely debilitating rheumatoid arthritis with loss of function of his hands bilaterally, history of atrial fibrillation, BPH, degenerative disc disease presents pulmonary fibrosis, asbestosis, moderate aortic stenosis, asbestosis Status post cardiac cath performed in 2010 which failed to reveal any obstructive disease last admitted for acute bronchitis, atypical chest pain 1 week ago comes in to the emergency room increased nausea and vomiting and diarrhea for 2 days. Patient had noravirus exposure from his family and has been sick for the past 2 days. Patient on evaluation documents constipation alternating with diarrhea. He complains of generalized weakness and has been bedbound for many weeks. Patient interested to come out of bed and cannot transfer himself out of the bed. Nausea and vomiting has resolved but patient had 2 bowel movements this morning he denies any abdominal pain. Patient has history of MRSA and therefore is on the contact precautions vital signs in the ER showed a temp of 99.4 tachycardic 125 blood pressure 81/52. Labs developed to suggest a WBC of 18, leukocytosis, creatinine 1.02 BUN 49 potassium 5.5 phosphorus 1.9, lactic acid 1.6 troponin 0.240. Labs improved this morning with leukocytosis of 12.7 hemoglobin 10.5 which appears to patient' s baseline creatinine is improved to 0.9. Troponin 3 with a similar 0.234 EKG with sinus tachycardia with nonspecific T-wave changes. Cardiology has evaluated. The patient is morning and has ruled out ACS Review of Systems Constitutional: Reports anorexia, Reports chronic pain, Reports fatigue, Reports lethargy, Reports poor appetite, Denies chills, Denies fever Eyes: denies blurred vision, denies bulging eye, denies diplopia, denies irritation, denies photophobia Ears: bilateral: decreased hearing, deny: earache, tinnitus Ears, nose, mouth and throat: Denies ant. neck pain, Denies bleeding gums, Denies dysphagia, Denies epistaxis, Denies headache, Denies hoarseness, Denies mouth pain, Denies nasal congestion, Denies nasal discharge, Denies nose pain Cardiovascular: Denies chest pain, Denies decreased exercise tolerance, Denies dyspnea on exertion, Denies edema, Denies high blood pressure, Denies irregular heart beat, Denies leg edema, Denies lightheadedness, Denies orthopnea, Denies palpitations Respiratory: Denies congestion, Denies cough, Denies cough with sputum, Denies dyspnea, Denies hemoptysis, Denies home oxygen, Denies pain on inspiration Gastrointestinal: Reports constipation, Reports diarrhea, Reports loss of appetite, Reports nausea, Reports vomiting, Denies abdominal pain, Denies belching, Denies bloating, Denies BRBPR, Denies heartburn, Denies hematemesis, Denies hematochezia, Denies indigestion, Denies jaundice Genitourinary: Denies discharge, Denies dysuria, Denies flank pain, Denies hematuria, Denies incontinence, Denies kidney stones, Denies nocturia, Denies urinary frequency, Denies urinary hesitancy Musculoskeletal: Reports frequent falls, Reports gait dysfunction, Reports limitation of motion, Reports morning stiffness, Reports muscle cramps, Reports muscle weakness, Reports myalgias, Reports neck pain, Reports neck stiffness, Reports redness of joints, Denies arm numbness/tingling, Denies leg numbness/ tingling, Denies loss of height, Denies low back pain Musculoskeletal: right: elbow pain, hip pain, knee pain, shoulder pain, wrist pain, absent: ankle pain, foot pain, foot swelling, hand pain Integumentary: Reports dryness, Reports sores, Denies acne, Denies change in hair/nails, Denies darkening of skin, Denies foot/leg ulcers, Denies unusual bruising Neurological: Denies aphasia, Denies ataxia, Denies burning pain, Denies lack of coordination, Denies memory loss, Denies paralysis, Denies spasticity, Denies syncope, Denies vertigo, Denies weakness Psychiatric: Denies anxiety, Denies depression, Denies memory loss, Denies sleep disturbances Endocrine: Reports fatigue, Reports low blood sugars, Denies deepening of the voice, Denies excessive sweating, Denies palpitations, Denies polydipsia, Denies weight change Allergic/Immunologic: Denies allergic rhinitis, Denies angioedema, Denies persistent infections, Denies wheezing Past Medical History Past Medical History: Atrial Fibrillation, Deep Vein Thrombosis (DVT), Osteoarthritis (OA), Rheumatoid Arthritis (RA), Skin Disorder Additional Past Medical History / Comment(s): small hiatal hernia, asbestosis, wound outside left foot, hx colitis, wheelchair-non ambulatory from severe RA- "difficulty bending wrists or striaghtening arms, hx fx back,, "low BP", hx DVT rt [id number], kidney stones, stomach ulcer. History of Any Multi-Drug Resistant Organisms: MRSA Date of last positivie culture/infection: 11/19/07 MDRO Source:: Unknown Past Surgical History: Appendectomy, Back Surgery, Heart Catheterization, Joint Replacement, Tonsillectomy Additional Past Surgical History / Comment(s): alfredito hip replacments &alfredito knee replacments,,metatarsal heads removed,fingers,shoulder joint replaced,spinal fusion C1&2,colectomy 08/28/16 debridement left lateral foot, lt great toe amp thru metatarsal, upper endoscopy; picc line -since removed,lithotripsy x2 Past Anesthesia/Blood Transfusion Reactions: Postoperative Nausea & Vomiting ( PONV) Past Psychological History: No Psychological Hx Reported Additional Psychological History / Comment(s): pt lives with sujey in single level home with no porch steps. has electric w/c. private care and home care hired. no pets. pt served in the [employer] and is retired,worked in sales. Smoking Status: Former smoker Past Alcohol Use History: None Reported Additional Past Alcohol Use History / Comment(s): started smoking age 19(1958), quit 1973 smoked 1.5 ppd Past Drug Use History: None Reported - Past Family History Mother Family Medical History: AICD/Pacemaker, Cancer Additional Family Medical History / Comment(s): Breast, pacemaker Father Family Medical History: AICD/Pacemaker Additional Family Medical History / Comment(s): pacemaker Medications and Allergies Home Medications Medication Instructions Recorded Confirmed Type Acetaminophen-Codeine 300-30mg 1 tab PO Q6H PRN 07/18/16 07/14/18 History [Tylenol w/codeine #3] Aspirin 81 mg PO DAILY 07/18/16 07/14/18 History Gabapentin [Neurontin] 300 mg PO TID 07/18/16 07/14/18 History Hydroxychloroquine Sulfate 200 mg PO DAILY 07/18/16 07/14/18 History [Plaquenil] L.acidoph,Paracasei, B.lactis 1 cap PO DAILY 07/18/16 07/14/18 History [Probiotic] Tamsulosin [Flomax] 0.4 mg PO DAILY 07/18/16 07/14/18 History fentaNYL 50MCG/HR PATCH [Duragesic 50 mcg TRANSDERM Q72H 07/18/16 07/14/18 History 50MCG/HR] Digoxin [Lanoxin] 125 mcg PO DAILY 01/10/17 07/14/18 History Ferrous Sulfate [Iron (65 MG 325 mg PO DAILY 08/21/17 07/14/18 History Elemental)] Cholecalciferol (Vitamin D3) 2,000 unit PO DAILY 10/11/17 07/14/18 History [Vitamin D3] Cyclobenzaprine [Flexeril] 5 mg PO HS 10/11/17 07/14/18 History Warfarin [Coumadin] 1 mg PO SUTUTH 10/11/17 07/14/18 History Furosemide [Lasix] 20 mg PO DAILY 07/06/18 07/14/18 History Warfarin [Coumadin] 1.5 mg PO MOWEFRSA 07/06/18 07/14/18 History predniSONE 10 mg PO DAILY 07/06/18 07/14/18 History Allergies Allergy/AdvReac Type Severity Reaction Status Date / Time meperidine Allergy Nausea & Verified 07/14/18 21:22 Vomiting propoxyphene [From Darvon] Allergy Unknown Verified 07/14/18 21:22 morphine AdvReac Confusion Verified 07/14/18 21:22 Physical Exam Vitals: Vital Signs Temp Pulse Pulse Resp BP BP Pulse Ox 07/15/18 11:57 72 07/15/18 11:50 100 18 07/15/18 11:49 100 18 118/70 95 07/15/18 11:43 68 07/15/18 08:00 98.2 F 66 16 124/78 92 L 07/15/18 07:39 76 07/15/18 07:25 72 07/15/18 04:07 80 07/15/18 04:00 98 F 70 17 100/64 95 07/15/18 03:55 80 100 07/15/18 00:00 98 F 103 H 63 17 112/69 07/14/18 23:55 98.3 F 63 17 95/52 93 L 07/14/18 23:30 108 H 18 110/64 07/14/18 23:00 101 H 13 105/51 07/14/18 22:30 112 H 18 116/50 07/14/18 22:00 112 H 15 105/53 07/14/18 21:30 105 H 18 91/57 07/14/18 21:00 115 H 15 94/45 07/14/18 20:30 120 H 11 L 98/64 97 07/14/18 20:00 125 H 26 H 81/52 90 L 07/14/18 19:34 99.4 F 125 H 16 81/52 94 L Intake and Output 07/14/18 07/15/18 07/15/18 22:59 06:59 14:59 Intake Total 1250 Balance 1250 Intake: Intake, IV Titration 800 Amount Sodium Chloride 0.9% 1, 800 000 ml @ 100 mls/hr IV . Q10H ONE Rx#:[id number] Oral 450 Other: Voiding Method Urinal # Voids 250 Weight 58.967 kg 62.5 kg 62.5 kg - Constitutional General appearance: cooperative, no acute distress, thin-appearing fragile - EENT Eyes: anicteric sclerae, PERRLA, normal appearance ENT: hearing grossly normal - Neck Neck: no lymphadenopathy, normal ROM, no other, no rigidity, no stridor, no thyromegaly - Respiratory Respiratory: bilateral: CTA, negative: diminished, dullness, rales, rhonchi - Cardiovascular Rhythm: regular Heart sounds: normal: S1, S2 Abnormal Heart Sounds: 2+ systolic murmur, no diastolic murmur - Gastrointestinal General gastrointestinal: normal bowel sounds, soft nontender nondistended - Integumentary Integumentary: no rash - Neurologic Neurologic: CNII-XII intact motor deficit generalized weakness present - Musculoskeletal Musculoskeletal: gait couldn't be assessed strength equal bilaterally but weak bilaterally contractures seen in both upper and lower extremity - Psychiatric Psychiatric: A&O x's 3, appropriate affect Results CBC & Chem 7: 07/15/18 06:45 07/15/18 06:45 Labs: Abnormal Lab Results - Last 24 Hours (Table) 07/14/18 07/14/18 07/14/18 Range/Units 19:00 19:00 19:32 WBC 18.0 H (3.8-10.6) k/uL RBC 3.98 L (4.30-5.90) m/uL Hgb (13.0-17.5) gm/dL Hct (39.0-53.0) % MCV 100.9 H (80.0-100.0) fL Neutrophils # 16.8 H (1.3-7.7) k/uL Lymphocytes # 0.3 L (1.0-4.8) k/uL PT 19.0 H (9.0-12.0) sec INR 1.9 H (<1.2) Potassium 5.5 H (3.5-5.1) mmol/L Chloride (98-107) mmol/L BUN 49 H (9-20) mg/dL Glucose 110 H (74-99) mg/dL Calcium (8.4-10.2) mg/dL Phosphorus 1.9 L (2.5-4.5) mg/dL Troponin I (0.000-0.034) ng/mL Total Protein 6.2 L (6.3-8.2) g/dL Albumin 3.1 L (3.5-5.0) g/dL Urine Protein (Negative) Urine Ketones (Negative) Urine RBC (0-5) /hpf Hyaline Casts (0-2) /lpf Urine Mucus (None) /hpf 07/14/18 07/14/18 07/15/18 Range/Units 19:32 21:15 01:22 WBC (3.8-10.6) k/uL RBC (4.30-5.90) m/uL Hgb (13.0-17.5) gm/dL Hct (39.0-53.0) % MCV (80.0-100.0) fL Neutrophils # (1.3-7.7) k/uL Lymphocytes # (1.0-4.8) k/uL PT (9.0-12.0) sec INR (<1.2) Potassium (3.5-5.1) mmol/L Chloride (98-107) mmol/L BUN (9-20) mg/dL Glucose (74-99) mg/dL Calcium (8.4-10.2) mg/dL Phosphorus (2.5-4.5) mg/dL Troponin I 0.240 H* 0.233 H* (0.000-0.034) ng/mL Total Protein (6.3-8.2) g/dL Albumin (3.5-5.0) g/dL Urine Protein 1+ H (Negative) Urine Ketones 1+ H (Negative) Urine RBC 6 H (0-5) /hpf Hyaline Casts 27 H (0-2) /lpf Urine Mucus Few H (None) /hpf 07/15/18 07/15/18 07/15/18 Range/Units 06:45 06:45 06:45 WBC 12.7 H (3.8-10.6) k/uL RBC 3.24 L (4.30-5.90) m/uL Hgb 10.5 L (13.0-17.5) gm/dL Hct 33.5 L (39.0-53.0) % MCV 103.1 H (80.0-100.0) fL Neutrophils # 11.7 H (1.3-7.7) k/uL Lymphocytes # 0.3 L (1.0-4.8) k/uL PT (9.0-12.0) sec INR (<1.2) Potassium (3.5-5.1) mmol/L Chloride 108 H (98-107) mmol/L BUN 38 H (9-20) mg/dL Glucose 68 L (74-99) mg/dL Calcium 7.3 L (8.4-10.2) mg/dL Phosphorus (2.5-4.5) mg/dL Troponin I 0.234 H* (0.000-0.034) ng/mL Total Protein 4.8 L (6.3-8.2) g/dL Albumin 2.3 L (3.5-5.0) g/dL Urine Protein (Negative) Urine Ketones (Negative) Urine RBC (0-5) /hpf Hyaline Casts (0-2) /lpf Urine Mucus (None) /hpf Microbiology - Last 24 Hours (Table) 07/14/18 21:15 Urine Culture - Preliminary Urine,Voided Thrombosis Risk Factor Assmnt - DVT/VTE Prophylaxis DVT/VTE Prophylaxis: Pharmacologic Prophylaxis ordered - Choose All That Apply Any of the Below Risk Factors Present?: No Each Risk Factor Represents 3 Points: Age 75 years or older, Family history of DVT/PE Other congenital or acquired thrombophilia - If yes, enter type in comment: No Thrombosis Risk Factor Assessment Total Risk Factor Score: 6 Thrombosis Risk Factor Assessment Level: High Risk Assessment and Plan Plan: 1. Nausea and vomiting with diarrhea likely secondary to viral gastroenteritis abdominal x-ray ordered to rule out impaction. Bowel sounds are present. Patient will needan adequate bowel regimen normal saline initiated at 75 mL per hour 2. h/o COPD with pulmonary fibrosis stable, duoneb as needed for SOB 3Long-term anticoagulation coumadin, inr checks 4 Chronic pain secondary to RA, on fentanyl patch and gabapentin 300 mg 3 times a day Flexeril no change 5 Rheumatoid arthritis on Plaquenil,, chronic pain with opiates long-term prednisone 10 mg daily. 6. troponemia likley sec to tachycardia and demand supply ischemia, ECG sinus tachycardia, non specific ST changes 7. Acute renal insufficiency underlying CK D stage III 2, admitting creatinine 1.04 baseline 0.7. Nephrotoxins to be avoided 8. Barnes without any obstructive pathology 9. Diastolic CHF most likely chronic echocardiogram shows EF 50 55%, mild TR and mild MR right ventricle systolic pressure 26 moderate aortic stenosis Lasix 20 mg daily 10. Moderate aortic stenosis, stable Disposition - once stalbised, patient would need at least 2 inpatient nights
[2018-07-15] MEDS: DEXTROSE 5%-0.45% NACL 1,000 ML IV SCH (14:13)
--- NOTE | 2018-07-15 16:33 | XR ---
EXAMINATION TYPE: XR abdomen 1V DATE OF EXAM: 07/15/2018 COMPARISON: NONE HISTORY: Abdominal pain TECHNIQUE: 2 views supine FINDINGS: There is no sign of intestinal obstruction or pneumoperitoneum. There is extensive calcifie d pleural plaque on the left side. There are bilateral hip prostheses. There are spondylotic changes in the lumbar spine. There is gas down to the rectum. IMPRESSION: Nonacute abdomen. No free air.
[2018-07-15] MEDS ORDERED: WARFARIN 1 MG TAB PO SCH (18:00)
[2018-07-15] MEDS ORDERED: CYCLOBENZAPRINE 5 MG TAB PO SCH (21:00)
[2018-07-16] MEDS: DEXTROSE 5%-0.45% NACL 1,000 ML IV SCH (02:26)
[2018-07-16] MEDS: ALBUTEROL NEBULIZED 2.5 MG/3 ML INHALATION SCH ×5 (02:37→15:58)
[2018-07-16 07:14] LABS: INR 1.9 (<1.2)
[2018-07-16 08:24] VITALS: RESP 16
[2018-07-16] MEDS: PANTOPRAZOLE 40 MG/10 ML VIAL IVP SCH (09:25)
[2018-07-16] MEDS: FERROUS SULFATE 325 MG TAB PO SCH (09:25)
[2018-07-16] MEDS: GABAPENTIN 300 MG CAP PO SCH (09:26)
[2018-07-16] MEDS: CHOLECALCIFEROL 1,000 UNIT TAB PO SCH (09:26)
[2018-07-16] MEDS: predniSONE 10 MG TAB PO SCH (09:26)
[2018-07-16] MEDS: TAMSULOSIN 0.4 MG CAP.ER.24H PO SCH (09:26)
[2018-07-16] MEDS: ASPIRIN 81 MG PO SCH (09:26)
[2018-07-16] MEDS: DIGOXIN 125 MCG TAB PO SCH (09:26)
[2018-07-16] MEDS: FUROSEMIDE 20 MG TAB PO SCH (09:26)
[2018-07-16] MEDS: HYDROXYCHLOROQUINE SULFATE 200 MG TAB PO SCH (09:27)
--- NOTE | 2018-07-16 09:31 | P.PN ---
Progress Note - Text Patient is doing well. Sitting up comfortably in bed today no shortness of breath at this time. He was admitted with nausea vomiting and diarrhea He has paroxysmal atrial fibrillation and hypertension as well as a history of DVT, and is on anticoagulation Afebrile 97.65F pulse rate in the 70s blood pressure 132 91 mmHg Breath sounds are reduced bilaterally no rhonchi no crackles Heart sounds. Normal S1 normal S2 ejection systolic murmur Abdomen soft Extended is warm, patient reported arthritis Twelve-lead ECG was reviewed and it shows most likely an atrial tachycardia, irregular Impression Paroxysmal atrial fibrillation currently in sinus rhythm known moderate aortic stenosis Abnormal troponins of 0.2, nonrising pattern, 3, likely to be an acute myocardial infarction Suggest Continue with medical treatment no further cardiac workup at this point
[2018-07-16] MEDS: Acetaminophen-Codeine 300-30mg TAB PO PRN (12:07)
--- NOTE | 2018-07-16 13:55 | P.DS ---
Providers Date of admission: 07/16/18 12:11 Attending physician: Phil Celeste MD Consults: 07/15/18 07:56 Consult Physician Routine Consulting Provider: Margie Putnam Consult Reason/Comments: troponin elelvation Do you want consulting provider notified?: Yes Primary care physician: Pete Joseph Pertinent Studies: 77 years old male patient of Dr. Jake Stock, with past medical history of severely debilitating rheumatoid arthritis with loss of function of his hands bilaterally, history of atrial fibrillation, BPH, degenerative disc disease presents pulmonary fibrosis, asbestosis, moderate aortic stenosis, asbestosis Status post cardiac cath performed in 2010 which failed to reveal any obstructive disease last admitted for acute bronchitis, atypical chest pain 1 week ago comes in to the emergency room increased nausea and vomiting and diarrhea for 2 days. Patient had noravirus exposure from his family and has been sick for the past 2 days. Patient on evaluation documents constipation alternating with diarrhea. He complains of generalized weakness and has been bedbound for many weeks. Patient interested to come out of bed and cannot transfer himself out of the bed. Nausea and vomiting has resolved but patient had 2 bowel movements this morning he denies any abdominal pain. Patient has history of MRSA and therefore is on the contact precautions vital signs in the ER showed a temp of 99.4 tachycardic 125 blood pressure 81/52. Labs developed to suggest a WBC of 18, leukocytosis, creatinine 1.02 BUN 49 potassium 5.5 phosphorus 1.9, lactic acid 1.6 troponin 0.240. Labs improved this morning with leukocytosis of 12.7 hemoglobin 10.5 which appears to patient' s baseline creatinine is improved to 0.9. Troponin 3 with a similar 0.234 EKG with sinus tachycardia with nonspecific T-wave changes. Cardiology has evaluated. The patient is morning and has ruled out ACS Discharge diagnosis 1. Nausea and vomiting with diarrhea likely secondary to viral gastroenteritis 2. h/o COPD with pulmonary fibrosis 3Long-term anticoagulation 4 Chronic pain secondary to RA, 5 Rheumatoid arthritis on Plaquenil 6. troponemia 7. Acute renal insufficiency underlying CK D stage III 2, 8. Barnes without any obstructive pathology 9. Diastolic CHF most likely chronic 10. Moderate aortic stenosis CC a copy of discharge to Dr. Joseph Patient Condition at Discharge: Fair Plan - Discharge Summary Discharge Rx Participant: No New Discharge Prescriptions: Continue fentaNYL 50MCG/HR PATCH [Duragesic 50MCG/HR] 50 mcg TRANSDERM Q72H Aspirin 81 mg PO DAILY Hydroxychloroquine Sulfate [Plaquenil] 200 mg PO DAILY Tamsulosin [Flomax] 0.4 mg PO DAILY Gabapentin [Neurontin] 300 mg PO TID Acetaminophen-Codeine 300-30mg [Tylenol w/codeine #3] 1 tab PO Q6H PRN PRN Reason: Pain L.acidoph,Paracasei, B.lactis [Probiotic] 1 cap PO DAILY Digoxin [Lanoxin] 125 mcg PO DAILY Ferrous Sulfate [Iron (65 MG Elemental)] 325 mg PO DAILY Warfarin [Coumadin] 1 mg PO SUTUTH Cholecalciferol (Vitamin D3) [Vitamin D3] 2,000 unit PO DAILY Cyclobenzaprine [Flexeril] 5 mg PO HS predniSONE 10 mg PO DAILY Furosemide [Lasix] 20 mg PO DAILY Warfarin [Coumadin] 1.5 mg PO MOWEFRSA Cephalexin [Keflex] 500 mg PO TID Discharge Medication List Acetaminophen-Codeine 300-30mg [Tylenol w/codeine #3] 1 tab PO Q6H PRN 07/18/16 [History] Aspirin 81 mg PO DAILY 07/18/16 [History] Gabapentin [Neurontin] 300 mg PO TID 07/18/16 [History] Hydroxychloroquine Sulfate [Plaquenil] 200 mg PO DAILY 07/18/16 [History] L.acidoph,Paracasei, B.lactis [Probiotic] 1 cap PO DAILY 07/18/16 [History] Tamsulosin [Flomax] 0.4 mg PO DAILY 07/18/16 [History] fentaNYL 50MCG/HR PATCH [Duragesic 50MCG/HR] 50 mcg TRANSDERM Q72H 07/18/16 [ History] Digoxin [Lanoxin] 125 mcg PO DAILY 01/10/17 [History] Ferrous Sulfate [Iron (65 MG Elemental)] 325 mg PO DAILY 08/21/17 [History] Cholecalciferol (Vitamin D3) [Vitamin D3] 2,000 unit PO DAILY 10/11/17 [History] Cyclobenzaprine [Flexeril] 5 mg PO HS 10/11/17 [History] Warfarin [Coumadin] 1 mg PO SUTUTH 10/11/17 [History] Furosemide [Lasix] 20 mg PO DAILY 07/06/18 [History] Warfarin [Coumadin] 1.5 mg PO MOWEFRSA 07/06/18 [History] predniSONE 10 mg PO DAILY 07/06/18 [History] Cephalexin [Keflex] 500 mg PO TID 07/15/18 [History] Follow up Appointment(s)/Referral(s): Pete Joseph MD [Primary Care Provider] - 1-2 days
[2018-07-16 15:31] VITALS: BP 88/53; PULSE 99; TEMP 97.2
[2018-07-16] MEDS ORDERED: WARFARIN 1.5 MG TAB PO SCH (18:00)
== END 2018-07-16 15:48 | disposition home or self-care (01) | DRG 392 ==
LOC: EC 19:26 → 3SCARD 21:45 → 4SSUR 07-16 10:43 → OBSVTOIN 07-16 12:11
PROVIDERS: ADMIT Internal Medicine; ATTEND Internal Medicine
DX: A08.4 Viral intestinal infection, unspecified (principal); I47.1 Supraventricular tachycardia; I50.32 Chronic diastolic (congestive) heart failure; E78.5 Hyperlipidemia, unspecified; E86.0 Dehydration; G89.29 Other chronic pain; I11.0 Hypertensive heart disease with heart failure; I48.0 Paroxysmal atrial fibrillation; J44.9 Chronic obstructive pulmonary disease, unspecified; M06.9 Rheumatoid arthritis, unspecified; M19.90 Unspecified osteoarthritis, unspecified site; N40.0 Benign prostatic hyperplasia without lower urinary tract symptoms; J61 Pneumoconiosis due to asbestos and other mineral fibers; N28.9 Disorder of kidney and ureter, unspecified; K44.9 Diaphragmatic hernia without obstruction or gangrene; J84.10 Pulmonary fibrosis, unspecified; R77.9 Abnormality of plasma protein, unspecified; I08.3 Combined rheumatic disorders of mitral, aortic and tricuspid valves; Z74.01 Bed confinement status; Z79.01 Long term (current) use of anticoagulants; Z79.52 Long term (current) use of systemic steroids; Z79.82 Long term (current) use of aspirin; Z79.899 Other long term (current) drug therapy; Z86.718 Personal history of other venous thrombosis and embolism; Z87.11 Personal history of peptic ulcer disease; Z98.1 Arthrodesis status; Z96.619 Presence of unspecified artificial shoulder joint; Z87.891 Personal history of nicotine dependence; Z87.442 Personal history of urinary calculi; Z88.5 Allergy status to narcotic agent; Z88.8 Allergy status to other drugs, medicaments and biological substances; Z86.14 Personal history of Methicillin resistant Staphylococcus aureus infection; Z90.49 Acquired absence of other specified parts of digestive tract; Z96.643 Presence of artificial hip joint, bilateral; Z96.653 Presence of artificial knee joint, bilateral; Z89.412 Acquired absence of left great toe; Z82.49 Family history of ischemic heart disease and other diseases of the circulatory system; Z80.3 Family history of malignant neoplasm of breast
CPT/HCPCS: 36415; 71046; 74018; 80053; 81001; 82550; 82553; 83605; 83735; 84100; 84484; 85025; 85610; 85730; 87086; 93005; 94640; 94760; 96361; 96374; 96375; 99285

== ENCOUNTER → 2018-10-08 | Outpatient (CLI) | payer MEDICARE ==
--- NOTE | 2018-10-08 15:45 | XR ---
Right hand HISTORY: Cellulitis Or views of the right hand No comparisons Bones show decreased mineralization. Extensive vascular calcifications are present. Arthrodesis rojas e present at the first interphalangeal joint. Marked arthropathy is present joint space loss, subchon dral cyst formation, remodeling at the radial ulnar joint, radiocarpal joint, carpometacarpal joints as well as metacarpophalangeal joints, interphalangeal joints. Using nonstandard. There may be ankylo sis at interphalangeal joints of multiple digits. No evident periostitis to suggest osteomyelitis. IMPRESSION: Extensive underlying arthropathy. Nonstandard views due to patient's deformity. Osteomyel itis is not evident.
== END | disposition home or self-care (01) ==
LOC: RADXRMAIN 12:08
PROVIDERS: ATTEND Internal Medicine Geriatric Medicine
DX: M19.041 Primary osteoarthritis, right hand (principal)

== ENCOUNTER → 2019-03-26 | Outpatient (CLI) | payer MEDICARE ==
--- NOTE | 2019-03-26 16:20 | US ---
EXAMINATION TYPE: US venous doppler duplex LE DATE OF EXAM: 03/26/2019 2:23 PM COMPARISON: NONE CLINICAL HISTORY: L89.899 PRESSURE ULCER OF OTHER SITE. History of DVT right leg 20+ years ago. RIght lateral foot ulcer LOWER EXTREMITY VENOUS INSUFFICIENCY SIDE PERFORMED: bilateral 1) Color flow is present and patency is documented in the following vessels. No DVT or SVT is noted . EIV Common Femoral Vein Deep Femoral Vein Femoral Vein Popliteal Vein Proximal Calf Veins Greater Saph Vein Upper Small Saph Vein 2) There is venous reflux noted at the following venous levels: minimal right EIV and right greater saph vein and left EIV IMPRESSION: No sonographic evidence of deep venous thrombosis nor superficial venous thrombosis withi n the bilateral lower extremities. Minimal venous reflux is noted of the right external iliac vein, g reater saphenous vein on the right and left external iliac vein.
--- NOTE | 2019-04-02 12:09 | P.ARTDOP ---
Arterial Doppler LOWER EXTREMITY ARTERIAL DOPPLER: DATE OF SERVICE: 03/26/2019 Reason for study: Ulcer right foot. Doppler waveforms: Multiphasic bilaterally throughout. Pulse volume recording: Normal configuration. Pressure gradients: Only at the foot level. Ankle-brachial indices: Cannot be occluded. Toe pressures: 36 on the right, 58 on the left Impression: Lack of ability to occlude ankle suggests calcific wall disease. Waveforms are excellent. Toe pressures are low. This suggests either distal disease or significant vasospastic phenomenon. Proximal vessels likely to be fully patent.. Clinical correlation recommended
== END | disposition home or self-care (01) ==
LOC: RADUSWWP 13:33
PROVIDERS: ATTEND Internal Medicine Geriatric Medicine
DX: L89.899 Pressure ulcer of other site, unspecified stage (principal); M19.90 Unspecified osteoarthritis, unspecified site; M06.9 Rheumatoid arthritis, unspecified; I25.10 Atherosclerotic heart disease of native coronary artery without angina pectoris
CPT/HCPCS: 93923; 93970

== ENCOUNTER → 2019-03-26 | Outpatient (CLI) | payer MEDICARE ==
--- NOTE | 2019-03-26 13:43 | XR ---
EXAMINATION TYPE: XR foot complete RT DATE OF EXAM: 03/26/2019 COMPARISON: NONE HISTORY: Pressure ulcer TECHNIQUE: Three views are submitted. FINDINGS: Postsurgical change first digit and severe arthropathy of the MTP joint with findings suggestive of p robable previous additional surgery. Arthropathy of all DIP joints and PIP joints. Correlate clinical ly. Deformities involving the distal margin of all metatarsals and proximal phalanx of the second and third digits appear to be chronic. A calcification along the plantar surface of the foot. Large calc aneal spur and vascular calcifications. Soft tissue edema noted. There is subluxation of the proximal phalanx of the fourth and fifth digits relative to the remaining portion of the metatarsal. No destr uctive changes are seen. IMPRESSION: 1. Diffuse soft tissue edema with findings involving the metatarsal and MTP joints felt to BE most li avery postsurgical. No destructive changes are seen.
== END | disposition home or self-care (01) ==
LOC: RADXRMAIN 13:18
PROVIDERS: ATTEND Internal Medicine Infectious Disease
DX: M79.89 Other specified soft tissue disorders (principal); M06.9 Rheumatoid arthritis, unspecified; M19.90 Unspecified osteoarthritis, unspecified site; I25.10 Atherosclerotic heart disease of native coronary artery without angina pectoris; L89.899 Pressure ulcer of other site, unspecified stage

== ENCOUNTER 2019-07-08 18:42 | Emergency (ER) | payer MEDICARE ==
[2019-07-08 18:49] VITALS: RESP 19; TEMP 97.9
[2019-07-08] MEDS ORDERED: LIDOCAINE 1%-EPI 1:100,000 20 ML VIAL SQ STA (20:00)
--- NOTE | 2019-07-08 20:04 | ED ---
General Adult HPI - General Chief complaint: Extremity Problem,Nontraumatic Stated complaint: Elbow infection Time Seen by Provider: 07/08/19 19:30 Source: patient, Caregiver Mode of arrival: ambulatory Limitations: physical limitation - History of Present Illness Initial comments: Dictation was produced using [employer] dictation software. please excuse any grammatical, word or spelling errors. Chief Complaint: 79-year-old male presents with right elbow infection. History of Present Illness: Patient 79-year-old male presents to the right elbow infection. Patient typically has his infections evaluated and monitored at the wound care clinic. Patient's history of infection at the same spot. Patient recently completed a course of antibiotics. Over the last 48 hours he noted increasing drainage and pain to the right elbow. It has any constitutional symptoms. Presents today with drafter mechanical. Patient has no other complaints at t his time. History of skin cancer and frequent skin infections. Does have a history of MRSA. The ROS documented in this emergency department record has been reviewed and confirmed by me. Those systems with pertinent positive or negative responses have been documented in the HPI. All other systems are other negative and/or noncontributory. PHYSICAL EXAM: General Impression: Alert and oriented x3, not in acute distress, contractures to the extremities HEENT: Normocephalic atraumatic, extra-ocular movements intact, pupils equal and reactive to light bilaterally, mucous membranes moist. Cardiovascular: Heart regular rate and rhythm, S1&S2 audible, no murmurs, rubs or gallops Chest: Lungs clear to auscultation bilaterally, no rhonchi, no wheeze, no rales Abdomen: Bowel sounds present, abdomen soft, non-tender, non-distended, no organomegaly Neurological: CN II-XII grossly intact, no focal motor or sensory deficits noted Skin: Hyperpigmentation to the skin diffusely, 3 x 3 cm area of fluctuance and drainage to the right posterior elbow with surrounding erythema Psych: Normal affect and mood ED course: 79-year-old male clinical presentation consistent with right elbow abscess.. vital signs upon arrival are within acceptable limits.I&D was performed at bedside with drainage of purulent fluid.wound was packed with half- inch gauze. Patient discharged and told to follow-up with primary care physician or [facility] for outpatient management of abscess.she prescription for Bactrim and Keflex. - Related Data Home Medications Medication Instructions Recorded Confirmed Acetaminophen-Codeine 300-30mg 1 tab PO Q6H PRN 07/18/16 07/14/18 [Tylenol w/codeine #3] Aspirin 81 mg PO DAILY 07/18/16 07/14/18 Gabapentin [Neurontin] 300 mg PO TID 07/18/16 07/14/18 Hydroxychloroquine Sulfate 200 mg PO DAILY 07/18/16 07/14/18 [Plaquenil] L.acidoph,Paracasei, B.lactis 1 cap PO DAILY 07/18/16 07/14/18 [Probiotic] Tamsulosin [Flomax] 0.4 mg PO DAILY 07/18/16 07/14/18 fentaNYL 50MCG/HR PATCH [Duragesic 50 mcg TRANSDERM Q72H 07/18/16 07/14/18 50MCG/HR] Digoxin [Lanoxin] 125 mcg PO DAILY 01/10/17 07/14/18 Ferrous Sulfate [Iron (65 MG 325 mg PO DAILY 08/21/17 07/14/18 Elemental)] Cholecalciferol (Vitamin D3) 2,000 unit PO DAILY 10/11/17 07/14/18 [Vitamin D3] Cyclobenzaprine [Flexeril] 5 mg PO HS 10/11/17 07/14/18 Warfarin [Coumadin] 1 mg PO SUTUTH 10/11/17 07/14/18 Furosemide [Lasix] 20 mg PO DAILY 07/06/18 07/14/18 Warfarin [Coumadin] 1.5 mg PO MOWEFRSA 07/06/18 07/14/18 predniSONE 10 mg PO DAILY 07/06/18 07/14/18 Cephalexin [Keflex] 500 mg PO TID 07/15/18 07/15/18 Previous Rx's Medication Instructions Recorded Levofloxacin [Levaquin] 500 mg PO DAILY #7 tab 02/03/19 Cephalexin [Keflex] 500 mg PO Q8HR #42 cap 03/25/19 Cephalexin [Keflex] 500 mg PO Q12HR #42 cap 03/26/19 Cephalexin [Keflex] 500 mg PO Q6HR 5 Days #20 cap 07/08/19 Sulfamethox-Tmp 800-160Mg [Bactrim 1 tab PO Q12HR 5 Days #10 tab 07/08/19 DS 800-160 mg] Allergies Allergy/AdvReac Type Severity Reaction Status Date / Time meperidine Allergy Nausea & Verified 07/14/18 21:22 Vomiting propoxyphene [From Darvon] Allergy Unknown Verified 07/14/18 21:22 morphine AdvReac Confusion Verified 07/14/18 21:22 Review of Systems ROS Statement: Those systems with pertinent positive or pertinent negative responses have been documented in the HPI. ROS Other: All systems not noted in ROS Statement are negative. Past Medical History Past Medical History: Atrial Fibrillation, Deep Vein Thrombosis (DVT), Osteoa rthritis (OA), Rheumatoid Arthritis (RA), Skin Disorder Additional Past Medical History / Comment(s): small hiatal hernia, asbestosis, wound outside left foot, hx colitis, wheelchair-non ambulatory from severe RA- "difficulty bending wrists or striaghtening arms, hx fx back,, "low BP", hx DVT rt [id number], kidney stones, stomach ulcer. History of Any Multi-Drug Resistant Organisms: MRSA Date of last positivie culture/infection: 11/19/07 MDRO Source:: Unknown Past Surgical History: Appendectomy, Back Surgery, Heart Catheterization, Joint Replacement, Tonsillectomy Additional Past Surgical History / Comment(s): alfredito hip replacments &alfredito knee replacments,,metatarsal heads removed,fingers,shoulder joint replaced,spinal fusion C1&2,colectomy 08/28/16 debridement left lateral foot, lt great toe amp thru metatarsal, upper endoscopy; picc line -since removed,lithotripsy x2 Past Anesthesia/Blood Transfusion Reactions: Postoperative Nausea & Vomiting (PONV) Past Psychological History: No Psychological Hx Reported Smoking Status: Former smoker Past Alcohol Use History: None Reported Past Drug Use History: None Reported - Past Family History Mother Family Medical History: AICD/Pacemaker, Cancer Additional Family Medical History / Comment(s): Breast, pacemaker Father Family Medical History: AICD/Pacemaker Additional Family Medical History / Comment(s): pacemaker General Exam Limitations: physical limitation Course Vital Signs 07/08/19 18:46 Temperature 97.9 F Respiratory 19 Rate Blood Pressure 102/70 Procedures - Incision & Drainage Consent Obtained: verbal consent Site: upper extremity Anesthetic Used: lidocaine 1%, with epi Amount (mLs): 2 I&D Cleaning Method: Alcohol Wipe Sterile Field Used?: No Scalpel Used: #11 Needle Aspiration Performed?: Yes Irrigation Performed?: No I&D Drainage Obtained: Pus Packing: Iodoform Culture Obtained?: Yes Patient Tolerated Procedure: well Disposition Clinical Impression: Abscess Disposition: HOME SELF-CARE Condition: Good Instructions (If sedation given, give patient instructions): Abscess Incision and Drainage (ED) Prescriptions: Sulfamethox-Tmp 800-160Mg [Bactrim DS 800-160 mg] 1 tab PO Q12HR 5 Days #10 tab Cephalexin [Keflex] 500 mg PO Q6HR 5 Days #20 cap Is patient prescribed a controlled substance at d/c from ED?: No Referrals: Pete Joseph MD [Primary Care Provider] - 1-2 days Time of Disposition: 20:46
[2019-07-08] MEDS ORDERED: CEPHALEXIN 500MG STARTER PACK 4 CAP BTL PO STA (20:41)
[2019-07-08] MEDS ORDERED: SULFAMETH-TMP DS STARTER PACK 2 TAB BTL PO STA (20:41)
[2019-07-08 20:52] VITALS: BP 109/68; PULSE 70
== END 2019-07-08 20:52 | disposition home or self-care (01) ==
LOC: EC 18:42
DX: L02.413 Cutaneous abscess of right upper limb (principal); I48.91 Unspecified atrial fibrillation; M19.90 Unspecified osteoarthritis, unspecified site; M06.9 Rheumatoid arthritis, unspecified; Z87.891 Personal history of nicotine dependence; Z88.5 Allergy status to narcotic agent; Z79.01 Long term (current) use of anticoagulants; Z79.52 Long term (current) use of systemic steroids; Z79.82 Long term (current) use of aspirin; Z79.891 Long term (current) use of opiate analgesic; Z79.899 Other long term (current) drug therapy; Z86.14 Personal history of Methicillin resistant Staphylococcus aureus infection; Z85.828 Personal history of other malignant neoplasm of skin; Z86.718 Personal history of other venous thrombosis and embolism; Z96.643 Presence of artificial hip joint, bilateral; Z96.653 Presence of artificial knee joint, bilateral; Z98.1 Arthrodesis status
CPT/HCPCS: 10060; 87070; 87205; 99284